=== PATIENT | male | born 1965 | race Caucasian/White ===

== ENCOUNTER 2016-12-27 21:48 | Emergency (ER) | payer OTHER ==
[~2016-12-27] VITALS: Ht 180.3 cm; Wt 90.3 kg
[2016-12-27] MEDS ORDERED: ONDANSETRON 4MG/2ML VIAL (J2405) As Ordered ONE (23:52)
[2016-12-27] MEDS ORDERED: PANTOPRAZOLE 40MG INJ (PROTONIX) (C9113) As Ordered ONE (23:52)
[2016-12-28 00:15] LABS: BASO # 0.1 K/mm3 (0.0-0.2); BASO % 0.5 % (0.0-1.0); EOS # 0.1 K/mm3 (0.0-0.50); EOS % 0.7 % (0.0-3.0); LARGE UNSTAINED CELL # 0.1 K/mm3 (0.0-0.4); LYMPH # 1.7 K/mm3 (1.5-4.5); LYMPH % 11.3 % (24.0-44.0); MEAN CORPUSCULAR HEMOGLOBIN 28.6 pg (27.0-33.0); MEAN CORPUSCULAR HGB CONC 33.4 g/dl (32.0-36.5); MEAN CORPUSCULAR VOLUME 85.8 fl (80.0-96.0); MONO % 7.2 % (0.0-5.0); NEUTROPHILS # 10.8 K/mm3 (1.8-7.7); NEUTROPHILS % 79.2 % (36.0-66.0); PLATELET COUNT, AUTOMATED 247 k/mm3 (150-450); RED CELL DISTRIBUTION WIDTH 13.5 % (11.5-14.5); WHITE BLOOD COUNT 13.6 K/mm3 (4.0-10.0)
[2016-12-28 00:34] LABS: ALBUMIN 4.2 GM/DL (3.2-5.2); ALBUMIN/GLOBULIN RATIO 0.98 (1.00-1.93); ALKALINE PHOSPHATASE 98 U/L (45-117); ALT/SGPT 37 U/L (12-78); AMYLASE 55 U/L (25-115); ANION GAP 8 MEQ/L (8-16); AST/SGOT 19 U/L (15-37); BILIRUBIN,DIRECT 0.2 MG/DL (0.0-0.2); BILIRUBIN,TOTAL 1.2 MG/DL (0.2-1.0); BLOOD UREA NITROGEN 27 MG/DL (7-18); CALCIUM LEVEL 9.3 MG/DL (8.5-10.1); CARBON DIOXIDE LEVEL 29 MEQ/L (21-32); CHLORIDE LEVEL 102 MEQ/L (98-107); CREATININE FOR GFR 1.27 MG/DL (0.70-1.30); GLOMERULAR FILTRATION RATE > 60.0 (>56); GLUCOSE, FASTING 155 MG/DL (70-105); POTASSIUM SERUM 4.1 MEQ/L (3.5-5.1); SODIUM LEVEL 139 MEQ/L (136-145); TOTAL PROTEIN 8.5 GM/DL (6.4-8.2)
[2016-12-28] MEDS ORDERED: METOCLOPRAMIDE INJ 10MG/2ML VIAL (J2765) As Ordered ONE (02:02)
[2016-12-28] MEDS ORDERED: ISOVUE-370 76% 100ML VIAL (Q9967) As Ordered ONE (03:10)
[2016-12-28] MEDS ORDERED: ONDANSETRON 4MG/2ML VIAL (J2405) As Ordered ONE (03:23)
[2016-12-28] MEDS ORDERED: GABA800T PO (03:40)
[2016-12-28] MEDS ORDERED: NICO14DI20 TD (03:40)
[2016-12-28] MEDS ORDERED: ASPI81TA7 PO (03:40)
[2016-12-28] MEDS ORDERED: VITA50003 PO (03:40)
[2016-12-28] MEDS ORDERED: GABA-283 PO (03:40)
[2016-12-28] MEDS ORDERED: ZOLO100T PO (03:40)
[2016-12-28] MEDS ORDERED: INSULANT SC (03:40)
[2016-12-28] MEDS ORDERED: INSUH10VL SC (03:40)
--- NOTE | 2016-12-28 04:50 | REPUSA ---
CLINICAL HISTORY: Abdominal pain. TECHNIQUE: Multiple axial, sagittal and coronal CT images were obtained through the abdomen and pelvi s after administration of intravenous contrast material. COMMENTS: The liver is of uniform attenuation without mass or defect. There is no intra or extrahepatic biliary ductal dilatation. The spleen is normal. The gallbladder is within normal limits. The pancreas is of normal contour and attenuation characteristics. There is no evidence of adrenal mass. Both kidneys demonstrate prompt and equal nephrograms. The kidneys are normal in size, shape and conf iguration. There is no evidence of renal or ureteral mass. No renal or ureteral calculi are identifie d. There is no hydroureter or hydronephrosis. No evidence for appendicitis. There is no bowel wall thickening. No evidence for small or large rob l obstruction. There is no evidence of abdominal ascites or lymphadenopathy. There is no evidence of intrinsic or extrinsic bladder mass. There is no pelvic ascites or lymphadeno marcelina. Prostatic calcifictions are noted. Images of the lung bases show no evidence of pleural or parenchymal mass. There are no pleural effusi ons. The bony structures are free of lytic or blastic lesions. IMPRESSION: No evidence of acute abdominal or pelvic pathology. Thank you for your kind referral of this patient.
--- NOTE | 2016-12-28 06:16 | EDDOCDS ---
Nurse's Notes [facility] Name: Luis M Quinn Age: 51 yrs Sex: Male : 1965 Arrival Date: 12/27/2016 Time: 21:48 Bed 9 Private MD: [facility] [place] Diagnosis: Noninfective gastroenteritis and colitis, unspecified Presentation: 12/27 21:56 Presenting complaint: Patient states: nausea/vomiting for 3 days. Worse after starting rs3 on Trazodone, Zoloft since last month. reports of anxiety, not sleeping for many days. Adult Sepsis Screening: The patient does not have new or worsening altered mentation. Patient's respiratory rate is less than 22. Systolic blood pressure is greater than 100. Patient has a qSOFA score of 0- Negative Sepsis Screen. Suicide/Homicide risk assessment- the patient denies having any suicidal and/or homicidal ideations and does not present with any other emotional, behavioral or mental health complaints. Status: Patient is not a director of food and beverage services or dependent. Transition of care: patient was not received from another setting of care. 21:56 Acuity: VIN Level 3 rs3 21:56 Method Of Arrival: Ambulance rs3 Triage Assessment: 22:04 General: Appears in no apparent distress. Pain: Location: generalized. HIV screening NA rs3 for this visit Offered previously. Historical: - Allergies: no known allergies; - Home Meds: 1. aspirin 81 mg Oral tab 1 tab once daily 2. gabapentin 400 mg Oral cap 1 cap 3 at bedtime 3. Vitamin D Oral 50,000 unit weekly 4. Novolog 100 unit/mL Sub-Q soln three times a day 5. Lantus 100 unit/mL Sub-Q soln 50 unit 6. Zoloft 100 mg Oral tab once daily 7. trazodone 50 mg Oral tab (Last dose: 12/26/2016) 8. Tylenol 325 mg Oral tab every 4-6 hours 9. oxycodone 5 mg Oral cap 1 cap every 6 hours - PMHx: Diabetes - IDDM: controlled; Anxiety; - PSHx: left great toe opartial amp; - Social history: Smoking status: Patient uses tobacco products, light tobacco smoker. No barriers to communication noted, The patient speaks fluent [place]. - Family history: Not pertinent. - : The pt / caregiver states he / she is not on anticoagulants. Home medication list is obtained from the patient. - Exposure Risk Screening:: None identified. Screenin/12 00:02 Screening information is obtained from the patient. Fall risk: No risks identified. mcp Assistance ADL's: requires no assistance with activities of daily living. Abuse/DV Screen: The patient / caregiver reports he/she is: not in a situation that causes fear, pain or injury. Nutritional screening: No deficits noted. Advance Directives: Currently, there is no health care proxy. There is no active DNR order. home support is adequate. Assessment: 00:02 General: Appears ill, Behavior is cooperative. Pain: Denies pain. Neurological: No mcp deficits noted. Respiratory: Airway is patent Respiratory effort is even, unlabored. GI: Abdomen is non- distended Bowel sounds present X 4 quads. Abd is soft X 4 quads Reports nausea, vomiting. Derm: Skin is pink, warm & dry. 00:35 General: Appears ill, Behavior is appropriate for age, cooperative, Patient laying on [facility] stretcher, appears comfortable. NO voiced complaints at this time. . Neurological: Level of Consciousness is awake, alert, obeys commands, Oriented to person, place, time, Speech is normal, Facial symmetry appears normal, Facial symmetry: tongue is midline. Respiratory: Airway is patent Respiratory effort is even, unlabored, Respiratory pattern is regular, symmetrical. 01:30 General: Appears in no apparent distress, Behavior is appropriate for age, cooperative. jmb Neurological: Level of Consciousness is awake, alert, obeys commands, Oriented to person, place, time. Respiratory: Airway is patent Respiratory effort is even, unlabored, Respiratory pattern is regular, symmetrical. 02:47 General: Appears in no apparent distress, Behavior is appropriate for age, cooperative, jmb Patient noted to have dark red areas to posterior lower back. Informed Pankaj Orozco. Patient reports that it is known that when he runs out of hot water since he is always cold that he has a blow dryer that blows on him to keep him warm. . Neurological: Level of Consciousness is awake, alert, obeys commands, Oriented to person, place, time. Respiratory: Airway is patent Respiratory effort is even, unlabored, Respiratory pattern is regular, symmetrical. 02:56 General: Report given to Nadine Stanley RN. b 03:26 General: pt back from CT dry heaves at this time, received orders from MD for nausea tm5 meds. 05:42 Reassessment: Patient appears in no apparent distress at this time. Patient states tm5 feeling better. Patient states symptoms have improved. 06:13 Reassessment: Patient appears in no apparent distress at this time. Patient denies pain tm5 at this time. Patient states feeling better. Patient states symptoms have improved. Vital Signs: 12/27 21:51 BP 156 / 94; Pulse 103; Resp 20; Temp 98.3(O); Pulse Ox 100% on R/A; Weight 90.26 kg; sew Height 5 ft. 11 in. (180.34 cm); Pain 3/10; 12/28 00:32 BP 141 / 83 Supine; Pulse 103; Resp 20; Pulse Ox 99% on R/A; jmb 00:32 BP 130 / 82 Sitting; Pulse 104; Resp 20; Pulse Ox 98% on R/A; jmb 00:32 BP 100 / 75; Pulse 115; Resp 20; Pulse Ox 97% on R/A; jmb 02:45 BP 155 / 85 Supine; Pulse 110; Resp 18; Pulse Ox 98% on R/A; jmb 02:45 BP 140 / 83 Sitting; Pulse 114; Resp 20; Pulse Ox 100% on R/A; jmb 02:45 BP 116 / 64 Standing; Pulse 114; Resp 20; Pulse Ox 98% on R/A; jmb 05:42 BP 118 / 72; Pulse 78; Resp 20; Temp 97.9(O); Pulse Ox 94% on R/A; Pain 3/10; tm5 06:13 BP 122 / 56; Pulse 80; Resp 18; Temp 98.6(O); Pulse Ox 96% on R/A; Pain 0/10; tm5 12/27 21:51 Body Mass Index 27.75 (90.26 kg, 180.34 cm) sew Vitals: 12/27 21:51 Log In Time: December 27, 2016 at 21:50. RN notified that patient meets Red Flag sew criteria. ED Course: 21:50 Patient visited by Toya Lanza. sew 21:50 Patient moved to Waiting sew 21:51 [facility] [place] is Private Physician. sew 21:53 Patient visited by Toya Lanza. sew 21:54 Patient moved to Pre RCE sew 21:59 Triage Initiated rs3 22:27 Patient moved to Triage 3 kmg1 23:16 Pk Collins RPA-C is PHCP. ck7 23:16 Kiet Barreto DO is Attending Physician. ck7 23:16 Patient visited by Pk Collins RPA-C. ck7 23:48 Patient moved to I1 / M1 tm5 23:49 Patient moved to I5 / M5 kmg1 02 00:01 Amylase Sent. jmb 00:01 Basic Metabolic Profile Sent. jmb 00:01 CBC with Diff Sent. jmb 00:01 Lipase Sent. jmb 00:01 Liver Profile Sent. jmb 00:01 Urinalysis Sent. jmb 00:01 Urine Culture Sent. jmb 00:01 Inserted saline lock: 20 gauge in left antecubital area and blood collected. The mcp patient tolerated the procedure well. Labs drawn. (by ED staff). Sent per order to lab. Urine collected. Clean catch specimen. Urine specimen sent to lab. 00:02 The patient / caregiver is instructed regarding the plan of care and ED course. Placed mcp in gown. Bed in low position. Call light in reach. 00:03 Patient visited by Allison James RN. [facility] 00:33 [facility] Payment Agreement was scanned into [employer] and attached to record. hs2 00:35 Patient visited by Aj Willett RN. jmb 01:11 Patient visited by Pk Collins RPA-C. ck7 01:41 Patient visited by Pk Collins RPA-C. ck7 02:15 Patient visited by Pk Collins RPA-C. ck7 02:48 Patient visited by Aj Willett RN. jmb 02:54 Shantel Jackson RN is Primary Nurse. jlm 02:54 Patient moved to 9 jlm 02:57 Primary Nurse role handed off by Shantel Jackson RN jmb 03:13 Patient visited by Nadine Stanley,CHANDLER. tm5 03:[address] tm5 03:[address] Patient moved back from [address]. tm5 04:13 Patient visited by Nadine Stanley,CHANDLER. tm5 04:55 CT ABD & PELVIS: IV Contrast Only Returned. EDMS 05:42 Patient visited by Nadine Stanley RN. tm5 06:13 Discontinued lock intact, bleeding controlled, pressure dressing applied, No tm5 redness/swelling at site. No procedures done that require assistance. Administered Medications: 00:00 Drug: Ondansetron 4 mg [ondansetron HCl 2 mg/mL intravenous solution (2 mL)] Route: jmb IVP; Site: left antecubital; 03:01 Follow up: Response: Nausea is unchanged jmb 00:00 Drug: pantoprazole 40 mg [pantoprazole 40 mg intravenous solution] Route: IV; Rate: jmb bolus; Site: left antecubital; 03:01 Follow up: Response: No Adverse Reaction jmb 00:01 Drug: NS 0.9% 1000 ml [sodium chloride 0.9 % intravenous solution] Route: IV; Rate: jmb bolus; Site: left antecubital; 03:02 Follow up: IV Status: Completed infusion jmb 00:54 Drug: NS 0.9% 1000 ml [sodium chloride 0.9 % intravenous solution] Route: IV; Rate: jmb bolus; Site: left antecubital; 03:01 Follow up: IV Status: Completed infusion jmb 02:05 Drug: Metoclopramide 10 mg [metoclopramide 5 mg/mL injection solution] Route: IV; Rate: jmb 40 mg/hr; Infused Over: 15 mins; Site: left antecubital; 03:01 Follow up: Response: Nausea is decreased b 03:26 Drug: Ondansetron 4 mg [ondansetron HCl 2 mg/mL intravenous solution (2 mL)] Route: tm5 IVP; Site: left antecubital; 04:14 Follow up: Response: Nausea is decreased; No Adverse Reaction tm5 Point of Care Testing: Blood Glucose: 12/27 21:59 Blood Glucose: 159 mg/dL; kmg1 Ranges: Order Results: Lab Order: Fingerstick Blood Sugar; SPEC'M 12/27/16 21:57 Test: BEDSIDE GLUCOSE; Value: 156; Range: 70-105; Abnormal: Above high normal; Units: MG/DL; Status: F Lab Order: Amylase; SPEC'M 12/27/16 23:57 Test: AMYLASE; Value: 55; Range: 25-115; Units: U/L; Status: F Lab Order: Basic Metabolic Profile; SPEC'M 12/27/16 23:57 Test: GLUCOSE, FASTING; Value: 155; Range: 70-105; Abnormal: Above high normal; Units: MG/DL; Status: F Test: BLOOD UREA NITROGEN; Value: 27; Range: 7-18; Abnormal: Above high normal; Units: MG/DL; Status: F Test: CREATININE FOR GFR; Value: 1.27; Range: 0.70-1.30; Units: MG/DL; Status: F Test: GLOMERULAR FILTRATION RATE; Value: > 60.0; Range: >56; Status: F Test: SODIUM LEVEL; Value: 139; Range: 136-145; Units: MEQ/L; Status: F Test: POTASSIUM SERUM; Value: 4.1; Range: 3.5-5.1; Units: MEQ/L; Status: F Test: CHLORIDE LEVEL; Value: 102; Range: 98-107; Units: MEQ/L; Status: F Test: CARBON DIOXIDE LEVEL; Value: 29; Range: 21-32; Units: MEQ/L; Status: F Test: ANION GAP; Value: 8; Range: 8-16; Units: MEQ/L; Status: F Test: CALCIUM LEVEL; Value: 9.3; Range: 8.5-10.1; Units: MG/DL; Status: F Test Note: ; Units are mL/min/1.73 m2 Chronic Kidney Disease Staging per NKF: Stage I & II GFR >=60 Normal to Mildly Decreased Stage III GFR 30-59 Moderately Decreased Stage IV GFR 15-29 Severely Decreased Stage V GFR <15 Very Little GFR Left ESRD GFR <15 on UX INTERACTION DESIGNER Lab Order: CBC with Diff; SPEC'M 12/27/16 23:57 Test: WHITE BLOOD COUNT; Value: 13.6; Range: 4.0-10.0; Abnormal: Above high normal; Units: K/mm3; Status: F Test: RED BLOOD COUNT; Value: 6.15; Range: 4.30-6.10; Abnormal: Above high normal; Units: M/mm3; Status: F Test: HEMOGLOBIN; Value: 17.6; Range: 14.0-18.0; Units: g/dl; Status: F Test: HEMATOCRIT; Value: 52.8; Range: 42.0-52.0; Abnormal: Above high normal; Units: %; Status: F Test: MEAN CORPUSCULAR VOLUME; Value: 85.8; Range: 80.0-96.0; Units: fl; Status: F Test: MEAN CORPUSCULAR HEMOGLOBIN; Value: 28.6; Range: 27.0-33.0; Units: pg; Status: F Test: MEAN CORPUSCULAR HGB CONC; Value: 33.4; Range: 32.0-36.5; Units: g/dl; Status: F Test: RED CELL DISTRIBUTION WIDTH; Value: 13.5; Range: 11.5-14.5; Units: %; Status: F Test: PLATELET COUNT, AUTOMATED; Value: 247; Range: 150-450; Units: k/mm3; Status: F Test: NEUTROPHILS %; Value: 79.2; Range: 36.0-66.0; Abnormal: Above high normal; Units: %; Status: F Test: LYMPH %; Value: 11.3; Range: 24.0-44.0; Abnormal: Below low normal; Units: %; Status: F Test: MONO %; Value: 7.2; Range: 0.0-5.0; Abnormal: Above high normal; Units: %; Status: F Test: EOS %; Value: 0.7; Range: 0.0-3.0; Units: %; Status: F Test: BASO %; Value: 0.5; Range: 0.0-1.0; Units: %; Status: F Test: LARGE UNSTAINED CELL %; Value: 1.0; Range: 0.0-4.0; Units: %; Status: F Test: NEUTROPHILS #; Value: 10.8; Range: 1.8-7.7; Abnormal: Above high normal; Units: K/mm3; Status: F Test: LYMPH #; Value: 1.7; Range: 1.5-4.5; Units: K/mm3; Status: F Test: MONO #; Value: 1.0; Range: 0.0-0.8; Abnormal: Above high normal; Units: K/mm3; Status: F Test: EOS #; Value: 0.1; Range: 0.0-0.50; Units: K/mm3; Status: F Test: BASO #; Value: 0.1; Range: 0.0-0.2; Units: K/mm3; Status: F Test: LARGE UNSTAINED CELL #; Value: 0.1; Range: 0.0-0.4; Units: K/mm3; Status: F Lab Order: Lipase; [facility] 12/27/16 23:57 Test: LIPASE; Value: 58; Range: 73-393; Abnormal: Below low normal; Units: U/L; Status: F Lab Order: Liver Profile; [facility] 12/27/16 23:57 Test: AST/SGOT; Value: 19; Range: 15-37; Units: U/L; Status: F Test: ALT/SGPT; Value: 37; Range: 12-78; Units: U/L; Status: F Test: ALKALINE PHOSPHATASE; Value: 98; Range: 45-117; Units: U/L; Status: F Test: BILIRUBIN,TOTAL; Value: 1.2; Range: 0.2-1.0; Abnormal: Above high normal; Units: MG/DL; Status: F Test: BILIRUBIN,DIRECT; Value: 0.2; Range: 0.0-0.2; Units: MG/DL; Status: F Test: TOTAL PROTEIN; Value: 8.5; Range: 6.4-8.2; Abnormal: Above high normal; Units: GM/DL; Status: F Test: ALBUMIN; Value: 4.2; Range: 3.2-5.2; Units: GM/DL; Status: F Test: ALBUMIN/GLOBULIN RATIO; Value: 0.98; Range: 1.00-1.93; Abnormal: Below low normal; Status: F Lab Order: Urinalysis; [facility] 12/27/16 23:57 Test: APPEARANCE, URINE; Value: HAZY; Range: CLEAR; Status: F Test: COLOR, URINE; Value: YELLOW; Range: YELLOW; Status: F Test: PH,URINE; Value: 5.0; Range: 5.0-9.0; Units: UNITS; Status: F Test: SPECIFIC GRAVITY URINE AUTO; Value: 1.031; Range: 1.002-1.035; Status: F Test: PROTEIN, URINE AUTO; Value: 1+; Range: NEGATIVE; Abnormal: Above high normal; Units: mg/dL; Status: F Test: GLUCOSE, URINE (UA) AUTO; Value: NEGATIVE; Range: NEGATIVE; Units: mg/dL; Status: F Test: KETONE, URINE AUTO; Value: 2+; Range: NEGATIVE; Abnormal: Above high normal; Units: mg/dL; Status: F Test: UROBILINOGEN, URINE AUTO; Value: 2.0; Range: 0.0-2.0; Abnormal: Above high normal; Units: mg/dL; Status: F Test: BILIRUBIN, URINE AUTO; Value: NEGATIVE; Range: NEGATIVE; Status: F Test: NITRITE, URINE AUTO; Value: NEGATIVE; Range: NEGATIVE; Status: F Test: LEUKOCYTE ESTERASE, URINE AUTO; Value: NEGATIVE; Range: NEGATIVE; Status: F Test: BLOOD, URINE BLOOD; Value: NEGATIVE; Range: NEGATIVE; Status: F Test: WBC, URINE AUTO; Value: 1; Range: 0-3; Units: /HPF; Status: F Test: RBC, URINE AUTO; Value: 1; Range: 0-3; Units: /HPF; Status: F Test: BACTERIA, URINE AUTO; Value: NEGATIVE; Range: NEGATIVE; Status: F Test: SQUAMOUS EPITHELIAL CELL UR AU; Value: 0; Range: 0-6; Units: /HPF; Status: F Test: MUCUS, URINE; Value: SMALL; Range: NEGATIVE; Status: F Test: SPERM, URINE AUTO; Value: SMALL; Range: NONE; Abnormal: Above high normal; Status: F Test: HYALINE CAST, URINE AUTO; Value: 0; Range: 0-1; Units: /LPF; Status: F Radiology Order: CT ABD & PELVIS: IV Contrast Only Test: CT ABD & PELVIS: IV Contrast Only REASON FOR EXAMINATION: Abdomen Pain; ; CLINICAL HISTORY: Abdominal pain.; TECHNIQUE: Multiple axial, sagittal and coronal CT images were obtained through the abdomen and pelvi; s after administration of intravenous contrast material.; COMMENTS:; The liver is of uniform attenuation without mass or defect. There is no intra or extrahepatic biliary; ductal dilatation. The spleen is normal. The gallbladder is within normal limits. The pancreas is of; normal contour and attenuation characteristics. There is no evidence of adrenal mass.; Both kidneys demonstrate prompt and equal nephrograms. The kidneys are normal in size, shape and conf; iguration. There is no evidence of renal or ureteral mass. No renal or ureteral calculi are identifie; d. There is no hydroureter or hydronephrosis.; No evidence for appendicitis. There is no bowel wall thickening. No evidence for small or large rob; l obstruction. There is no evidence of abdominal ascites or lymphadenopathy.; There is no evidence of intrinsic or extrinsic bladder mass. There is no pelvic ascites or lymphadeno; marcelina. Prostatic calcifictions are noted.; Images of the lung bases show no evidence of pleural or parenchymal mass. There are no pleural effusi; ons.; The bony structures are free of lytic or blastic lesions.; IMPRESSION:; No evidence of acute abdominal or pelvic pathology.; Thank you for your kind referral of this patient.; ; Outcome: 12/28 05:56 Discharge ordered by Provider. [id number] 06:13 Discharge Assessment: Patient awake, alert and oriented x 3. No cognitive and/or tm5 functional deficits noted. Patient verbalized understanding of disposition instructions. patient administered narcotics - no. The following High Risk Discharge criteria are identified: None. Discharged to home ambulatory. Condition: good Condition: stable Condition: improved. Discharge instructions given to patient, Instructed on discharge instructions, follow up and referral plans. medication usage, diet, PO fluids intake for Hydration. CT Study completed. Property :Personal belongings accompany Pt. 06:15 Patient left the ED. tm5 Signatures: Dispatcher [employer] EDMS Jillian Griffin, RN RN kmg1 Allison James RN RN mcp Maynard, Matthew, DO DO [id number] Leora Akins RN RN rs3 Pk Collins, RPA-C [id number] Toya Lanza JoshuaRN RN Kalani Nolan, Manufacturing Process Technician Unit jlSarah Alexandra, Reg Reg hs2 Nadine StanleyRN RN tm5 MTDD
--- NOTE | 2016-12-28 06:16 | EDDOCDS ---
Physician Documentation [facility] Name: Luis M Quinn Age: 51 yrs Sex: Male : 1965 Arrival Date: 12/27/2016 Time: 21:48 Bed 9 Private MD: [facility] Disposition: 12/28/16 05:56 Discharged to Home/Self Care. Impression: Noninfective gastroenteritis and colitis, unspecified. - Condition is Stable. - Discharge Instructions: Viral Gastroenteritis, Viral Gastroenteritis, [id number]. - Prescriptions for Reglan 10 mg Oral Tablet - take 1 tablet by ORAL route every 6 hours take 30 minutes before meals and at bedtime; 20 tablet. Zofran 4 mg Oral Tablet - take 1 tablet by ORAL route 4 times per day As needed; 10 tablet. - Medication Reconciliation, Local Pharmacy Hours form. - Follow up: Private Physician; When: As needed; Reason: Continuance of care. - Problem is an acute exacerbation. - Symptoms have improved. Historical: - Allergies: no known allergies; - Home Meds: 1. aspirin 81 mg Oral tab 1 tab once daily 2. gabapentin 400 mg Oral cap 1 cap 3 at bedtime 3. Vitamin D Oral 50,000 unit weekly 4. Novolog 100 unit/mL Sub-Q soln three times a day 5. Lantus 100 unit/mL Sub-Q soln 50 unit 6. Zoloft 100 mg Oral tab once daily 7. trazodone 50 mg Oral tab (Last dose: 12/26/2016) 8. Tylenol 325 mg Oral tab every 4-6 hours 9. oxycodone 5 mg Oral cap 1 cap every 6 hours - PMHx: Diabetes - IDDM: controlled; Anxiety; - PSHx: left great toe opartial amp; - Social history: Smoking status: Patient uses tobacco products, light tobacco smoker. No barriers to communication noted, The patient speaks fluent Estonian. - Family history: Not pertinent. - : The pt / caregiver states he / she is not on anticoagulants. Home medication list is obtained from the patient. - Exposure Risk Screening:: None identified. Vital Signs: 12/27 21:51 BP 156 / 94; Pulse 103; Resp 20; Temp 98.3(O); Pulse Ox 100% on R/A; Weight 90.26 kg / sew 198.99 lbs; Height 5 ft. 11 in. (180.34 cm); Pain 3/10; 12/28 00:32 BP 141 / 83 Supine; Pulse 103; Resp 20; Pulse Ox 99% on R/A; jmb 00:32 BP 130 / 82 Sitting; Pulse 104; Resp 20; Pulse Ox 98% on R/A; jmb 00:32 BP 100 / 75; Pulse 115; Resp 20; Pulse Ox 97% on R/A; jmb 02:45 BP 155 / 85 Supine; Pulse 110; Resp 18; Pulse Ox 98% on R/A; jmb 02:45 BP 140 / 83 Sitting; Pulse 114; Resp 20; Pulse Ox 100% on R/A; jmb 02:45 BP 116 / 64 Standing; Pulse 114; Resp 20; Pulse Ox 98% on R/A; jmb 05:42 BP 118 / 72; Pulse 78; Resp 20; Temp 97.9(O); Pulse Ox 94% on R/A; Pain 3/10; tm5 06:13 BP 122 / 56; Pulse 80; Resp 18; Temp 98.6(O); Pulse Ox 96% on R/A; Pain 0/10; tm5 12/27 21:51 Body Mass Index 27.75 (90.26 kg, 180.34 cm) sew MDM: 12/27 23:42 Undress patient appropriately for examination ordered. ck7 23:42 IV Saline Lock ordered. ck7 23:42 NS 0.9% 1000 ml IV at bolus once ordered. ck7 23:42 Ondansetron 4 mg IVP once ordered. ck7 23:42 pantoprazole 40 mg IV at bolus once ordered. ck7 23:43 Financial registration complete. hs2 23:43 Amylase Ordered. EDMS 23:43 Basic Metabolic Profile Ordered. EDMS 23:43 CBC with Diff Ordered. EDMS 23:43 Lipase Ordered. EDMS 23:43 Liver Profile Ordered. EDMS 23:43 Urinalysis Ordered. EDMS 23:43 Urine Culture Ordered. EDMS 23:44 NOTHING BY MOUTH+DIET ordered. EDMS 23:50 Orthostatic VS ordered. ck7 12/28 00:33 [facility] [place] was scanned into [employer] and attached to record. hs2 00:38 Fingerstick Blood Sugar Reviewed. ck7 00:38 Basic Metabolic Profile Reviewed. ck7 00:38 CBC with Diff Reviewed. ck7 00:38 Lipase Reviewed. ck7 00:38 Liver Profile Reviewed. ck7 00:38 Urinalysis Reviewed. ck7 00:38 Amylase Reviewed. ck7 00:49 NS 0.9% 1000 ml IV at bolus once ordered. ck7 01:41 Fluid Challenge ordered. ck7 01:59 Orthostatic VS ordered. ck7 01:59 Metoclopramide 10 mg IV at 40 mg/hr once over 15 mins ordered. ck7 02:00 Abdomen, Flat\E\Upright,PA Chest Ordered. EDMS 02:42 BED REQUEST+ADM ordered. EDMS 02:52 CT ABD & PELVIS: IV Contrast Only Ordered. EDMS 03:23 Ondansetron 4 mg IVP once ordered. mm11 Point of Care Testing: Blood Glucose: 12/27 21:59 Blood Glucose: 159 mg/dL; kmg1 Ranges: Administered Medications: 12/28 00:00 Drug: Ondansetron 4 mg [ondansetron HCl 2 mg/mL intravenous solution (2 mL)] Route: jmb IVP; Site: left antecubital; 03:01 Follow up: Response: Nausea is unchanged jmb 00:00 Drug: pantoprazole 40 mg [pantoprazole 40 mg intravenous solution] Route: IV; Rate: jmb bolus; Site: left antecubital; 03:01 Follow up: Response: No Adverse Reaction jmb 00:01 Drug: NS 0.9% 1000 ml [sodium chloride 0.9 % intravenous solution] Route: IV; Rate: jmb bolus; Site: left antecubital; 03:02 Follow up: IV Status: Completed infusion jmb 00:54 Drug: NS 0.9% 1000 ml [sodium chloride 0.9 % intravenous solution] Route: IV; Rate: jmb bolus; Site: left antecubital; 03:01 Follow up: IV Status: Completed infusion jmb 02:05 Drug: Metoclopramide 10 mg [metoclopramide 5 mg/mL injection solution] Route: IV; Rate: jmb 40 mg/hr; Infused Over: 15 mins; Site: left antecubital; 03:01 Follow up: Response: Nausea is decreased jmb 03:26 Drug: Ondansetron 4 mg [ondansetron HCl 2 mg/mL intravenous solution (2 mL)] Route: tm5 IVP; Site: left antecubital; 04:14 Follow up: Response: Nausea is decreased; No Adverse Reaction tm5 Signatures: Dispatcher [employer] Kiet Alvarado, DO mm11 Leora Akins RN RN rs3 Pk Collins, RPA-C RPA-Cck7 Sarah Simpson, Reg Reg hs2 Nadine Stanley RN RN tm5 Aj Willett RNb The chart was reviewed and I authenticate all verbal orders and agree with the evaluation and treatment provided.Attachments: 00:33 [facility] Payment Agreement hs2 MTDD
--- NOTE | 2016-12-28 14:01 | REP ---
ACUTE ABDOMINAL SERIES: 12/28/2016. Clinical history: Abdominal pain. Comparison: Portable chest 12/08/2007, abdominal series 09/29/2007. Findings: PA chest: Lung horner well inflated and clear. Heart, mediastinal and hilar contours normal. Airway intact . Bony thorax unremarkable. No free air under the diaphragm. Flat upright abdomen: The gas pattern is nonspecific. There is stool and gas scattered in the colon without dilatation and gas in small bowel loops without dilatation or any air fluid levels of significance. There are no masses, abnormal calcifications or significant acute bony findings. There is some minor degenerative changes hips and lower lumbar spine. Impression: 1. Nonspecific gas pattern without obstruction, mass or free air. 2. PA chest negative. Signed by Randal Weller MD 12/28/2016 07:25 P
--- NOTE | 2016-12-30 07:15 | EDDOCDS ---
Physician Documentation [facility] Name: Luis M Quinn Age: 51 yrs Sex: Male : 1965 Arrival Date: 12/27/2016 Time: 21:48 Bed 9 Private MD: [facility] Disposition: 12/28/16 05:56 Discharged to Home/Self Care. Impression: Noninfective gastroenteritis and colitis, unspecified. - Condition is Stable. - Discharge Instructions: Viral Gastroenteritis, Viral Gastroenteritis, [id number]. - Prescriptions for Reglan 10 mg Oral Tablet - take 1 tablet by ORAL route every 6 hours take 30 minutes before meals and at bedtime; 20 tablet. Zofran 4 mg Oral Tablet - take 1 tablet by ORAL route 4 times per day As needed; 10 tablet. - Medication Reconciliation, Local Pharmacy Hours form. - Follow up: Private Physician; When: As needed; Reason: Continuance of care. - Problem is an acute exacerbation. - Symptoms have improved. Historical: - Allergies: no known allergies; - Home Meds: 1. aspirin 81 mg Oral tab 1 tab once daily 2. gabapentin 400 mg Oral cap 1 cap 3 at bedtime 3. Vitamin D Oral 50,000 unit weekly 4. Novolog 100 unit/mL Sub-Q soln three times a day 5. Lantus 100 unit/mL Sub-Q soln 50 unit 6. Zoloft 100 mg Oral tab once daily 7. trazodone 50 mg Oral tab (Last dose: 12/26/2016) 8. Tylenol 325 mg Oral tab every 4-6 hours 9. oxycodone 5 mg Oral cap 1 cap every 6 hours - PMHx: Diabetes - IDDM: controlled; Anxiety; - PSHx: left great toe opartial amp; - Social history: Smoking status: Patient uses tobacco products, light tobacco smoker. No barriers to communication noted, The patient speaks fluent Kiswahili. - Family history: Not pertinent. - : The pt / caregiver states he / she is not on anticoagulants. Home medication list is obtained from the patient. - Exposure Risk Screening:: None identified. Vital Signs: 12/27 21:51 BP 156 / 94; Pulse 103; Resp 20; Temp 98.3(O); Pulse Ox 100% on R/A; Weight 90.26 kg / sew 198.99 lbs; Height 5 ft. 11 in. (180.34 cm); Pain 3/10; 12/28 00:32 BP 141 / 83 Supine; Pulse 103; Resp 20; Pulse Ox 99% on R/A; jmb 00:32 BP 130 / 82 Sitting; Pulse 104; Resp 20; Pulse Ox 98% on R/A; jmb 00:32 BP 100 / 75; Pulse 115; Resp 20; Pulse Ox 97% on R/A; jmb 02:45 BP 155 / 85 Supine; Pulse 110; Resp 18; Pulse Ox 98% on R/A; jmb 02:45 BP 140 / 83 Sitting; Pulse 114; Resp 20; Pulse Ox 100% on R/A; jmb 02:45 BP 116 / 64 Standing; Pulse 114; Resp 20; Pulse Ox 98% on R/A; jmb 05:42 BP 118 / 72; Pulse 78; Resp 20; Temp 97.9(O); Pulse Ox 94% on R/A; Pain 3/10; tm5 06:13 BP 122 / 56; Pulse 80; Resp 18; Temp 98.6(O); Pulse Ox 96% on R/A; Pain 0/10; tm5 12/27 21:51 Body Mass Index 27.75 (90.26 kg, 180.34 cm) sew MDM: 12/27 23:42 Undress patient appropriately for examination ordered. ck7 23:42 IV Saline Lock ordered. ck7 23:42 NS 0.9% 1000 ml IV at bolus once ordered. ck7 23:42 Ondansetron 4 mg IVP once ordered. ck7 23:42 pantoprazole 40 mg IV at bolus once ordered. ck7 23:43 Financial registration complete. hs2 23:43 Amylase Ordered. EDMS 23:43 Basic Metabolic Profile Ordered. EDMS 23:43 CBC with Diff Ordered. EDMS 23:43 Lipase Ordered. EDMS 23:43 Liver Profile Ordered. EDMS 23:43 Urinalysis Ordered. EDMS 23:43 Urine Culture Ordered. EDMS 23:44 NOTHING BY MOUTH+DIET ordered. EDMS 23:50 Orthostatic VS ordered. ck7 12/28 00:33 [facility] [place] Agreement was scanned into [employer] and attached to record. hs2 00:38 Fingerstick Blood Sugar Reviewed. ck7 00:38 Basic Metabolic Profile Reviewed. ck7 00:38 CBC with Diff Reviewed. ck7 00:38 Lipase Reviewed. ck7 00:38 Liver Profile Reviewed. ck7 00:38 Urinalysis Reviewed. ck7 00:38 Amylase Reviewed. ck7 00:49 NS 0.9% 1000 ml IV at bolus once ordered. ck7 01:41 Fluid Challenge ordered. ck7 01:59 Orthostatic VS ordered. ck7 01:59 Metoclopramide 10 mg IV at 40 mg/hr once over 15 mins ordered. ck7 02:00 Abdomen, Flat\E\Upright,PA Chest Ordered. EDMS 02:42 BED REQUEST+ADM ordered. EDMS 02:52 CT ABD & PELVIS: IV Contrast Only Ordered. EDMS 03:23 Ondansetron 4 mg IVP once ordered. mm11 20:08 Abdomen, Flat\E\Upright,PA Chest Reviewed. ck7 20:08 CT ABD & PELVIS: IV Contrast Only Reviewed. ck7 20:50 T-Sheet-- Draft Copy was scanned into [employer] and attached to record. klr Point of Care Testing: Blood Glucose: 12/27 21:59 Blood Glucose: 159 mg/dL; kmg1 Ranges: Administered Medications: 12/28 00:00 Drug: Ondansetron 4 mg [ondansetron HCl 2 mg/mL intravenous solution (2 mL)] Route: jmb IVP; Site: left antecubital; 03:01 Follow up: Response: Nausea is unchanged jmb 00:00 Drug: pantoprazole 40 mg [pantoprazole 40 mg intravenous solution] Route: IV; Rate: jmb bolus; Site: left antecubital; 03:01 Follow up: Response: No Adverse Reaction jmb 00:01 Drug: NS 0.9% 1000 ml [sodium chloride 0.9 % intravenous solution] Route: IV; Rate: jmb bolus; Site: left antecubital; 03:02 Follow up: IV Status: Completed infusion jmb 00:54 Drug: NS 0.9% 1000 ml [sodium chloride 0.9 % intravenous solution] Route: IV; Rate: jmb bolus; Site: left antecubital; 03:01 Follow up: IV Status: Completed infusion jmb 02:05 Drug: Metoclopramide 10 mg [metoclopramide 5 mg/mL injection solution] Route: IV; Rate: jmb 40 mg/hr; Infused Over: 15 mins; Site: left antecubital; 03:01 Follow up: Response: Nausea is decreased jennifer 03:26 Drug: Ondansetron 4 mg [ondansetron HCl 2 mg/mL intravenous solution (2 mL)] Route: tm5 IVP; Site: left antecubital; 04:14 Follow up: Response: Nausea is decreased; No Adverse Reaction tm5 Signatures: Dispatcher [employer] EDKiet Méndez, DO mm11 Leora Akins RN RN rs3 Pk Collins, RPA-C RPA-Cck7 Sarah Simpson, Reg Reg hs2 Nae Mims Tonya, RN RN tm5 Aj Willett RNb The chart was reviewed and I authenticate all verbal orders and agree with the evaluation and treatment provided.Attachments: 00:33 [facility] Payment Agreement hs2 20:50 T-Sheet-- Draft Copy klr Chart Complete MTDD
--- NOTE | 2016-12-30 07:15 | EDDOCDS ---
Physician Documentation [facility] Name: Luis M Quinn Age: 51 yrs Sex: Male : 1965 Arrival Date: 12/27/2016 Time: 21:48 Bed 9 Private MD: [facility] Disposition: 12/28/16 05:56 Discharged to Home/Self Care. Impression: Noninfective gastroenteritis and colitis, unspecified. - Condition is Stable. - Discharge Instructions: Viral Gastroenteritis, Viral Gastroenteritis, [id number]. - Prescriptions for Reglan 10 mg Oral Tablet - take 1 tablet by ORAL route every 6 hours take 30 minutes before meals and at bedtime; 20 tablet. Zofran 4 mg Oral Tablet - take 1 tablet by ORAL route 4 times per day As needed; 10 tablet. - Medication Reconciliation, Local Pharmacy Hours form. - Follow up: Private Physician; When: As needed; Reason: Continuance of care. - Problem is an acute exacerbation. - Symptoms have improved. Historical: - Allergies: no known allergies; - Home Meds: 1. aspirin 81 mg Oral tab 1 tab once daily 2. gabapentin 400 mg Oral cap 1 cap 3 at bedtime 3. Vitamin D Oral 50,000 unit weekly 4. Novolog 100 unit/mL Sub-Q soln three times a day 5. Lantus 100 unit/mL Sub-Q soln 50 unit 6. Zoloft 100 mg Oral tab once daily 7. trazodone 50 mg Oral tab (Last dose: 12/26/2016) 8. Tylenol 325 mg Oral tab every 4-6 hours 9. oxycodone 5 mg Oral cap 1 cap every 6 hours - PMHx: Diabetes - IDDM: controlled; Anxiety; - PSHx: left great toe opartial amp; - Social history: Smoking status: Patient uses tobacco products, light tobacco smoker. No barriers to communication noted, The patient speaks fluent Croatian. - Family history: Not pertinent. - : The pt / caregiver states he / she is not on anticoagulants. Home medication list is obtained from the patient. - Exposure Risk Screening:: None identified. Vital Signs: 12/27 21:51 BP 156 / 94; Pulse 103; Resp 20; Temp 98.3(O); Pulse Ox 100% on R/A; Weight 90.26 kg / sew 198.99 lbs; Height 5 ft. 11 in. (180.34 cm); Pain 3/10; 12/28 00:32 BP 141 / 83 Supine; Pulse 103; Resp 20; Pulse Ox 99% on R/A; jmb 00:32 BP 130 / 82 Sitting; Pulse 104; Resp 20; Pulse Ox 98% on R/A; jmb 00:32 BP 100 / 75; Pulse 115; Resp 20; Pulse Ox 97% on R/A; jmb 02:45 BP 155 / 85 Supine; Pulse 110; Resp 18; Pulse Ox 98% on R/A; jmb 02:45 BP 140 / 83 Sitting; Pulse 114; Resp 20; Pulse Ox 100% on R/A; jmb 02:45 BP 116 / 64 Standing; Pulse 114; Resp 20; Pulse Ox 98% on R/A; jmb 05:42 BP 118 / 72; Pulse 78; Resp 20; Temp 97.9(O); Pulse Ox 94% on R/A; Pain 3/10; tm5 06:13 BP 122 / 56; Pulse 80; Resp 18; Temp 98.6(O); Pulse Ox 96% on R/A; Pain 0/10; tm5 12/27 21:51 Body Mass Index 27.75 (90.26 kg, 180.34 cm) sew MDM: 12/27 23:42 Undress patient appropriately for examination ordered. ck7 23:42 IV Saline Lock ordered. ck7 23:42 NS 0.9% 1000 ml IV at bolus once ordered. ck7 23:42 Ondansetron 4 mg IVP once ordered. ck7 23:42 pantoprazole 40 mg IV at bolus once ordered. ck7 23:43 Financial registration complete. hs2 23:43 Amylase Ordered. EDMS 23:43 Basic Metabolic Profile Ordered. EDMS 23:43 CBC with Diff Ordered. EDMS 23:43 Lipase Ordered. EDMS 23:43 Liver Profile Ordered. EDMS 23:43 Urinalysis Ordered. EDMS 23:43 Urine Culture Ordered. EDMS 23:44 NOTHING BY MOUTH+DIET ordered. EDMS 23:50 Orthostatic VS ordered. ck7 12/28 00:33 [facility] [place] Payment Agreement was scanned into [employer] and attached to record. hs2 00:38 Fingerstick Blood Sugar Reviewed. ck7 00:38 Basic Metabolic Profile Reviewed. ck7 00:38 CBC with Diff Reviewed. ck7 00:38 Lipase Reviewed. ck7 00:38 Liver Profile Reviewed. ck7 00:38 Urinalysis Reviewed. ck7 00:38 Amylase Reviewed. ck7 00:49 NS 0.9% 1000 ml IV at bolus once ordered. ck7 01:41 Fluid Challenge ordered. ck7 01:59 Orthostatic VS ordered. ck7 01:59 Metoclopramide 10 mg IV at 40 mg/hr once over 15 mins ordered. ck7 02:00 Abdomen, Flat\E\Upright,PA Chest Ordered. EDMS 02:42 BED REQUEST+ADM ordered. EDMS 02:52 CT ABD & PELVIS: IV Contrast Only Ordered. EDMS 03:23 Ondansetron 4 mg IVP once ordered. mm11 20:08 Abdomen, Flat\E\Upright,PA Chest Reviewed. ck7 20:08 CT ABD & PELVIS: IV Contrast Only Reviewed. ck7 20:50 T-Sheet-- Draft Copy was scanned into [employer] and attached to record. klr Point of Care Testing: Blood Glucose: 12/27 21:59 Blood Glucose: 159 mg/dL; kmg1 Ranges: Administered Medications: 12/28 00:00 Drug: Ondansetron 4 mg [ondansetron HCl 2 mg/mL intravenous solution (2 mL)] Route: jmb IVP; Site: left antecubital; 03:01 Follow up: Response: Nausea is unchanged jmb 00:00 Drug: pantoprazole 40 mg [pantoprazole 40 mg intravenous solution] Route: IV; Rate: jmb bolus; Site: left antecubital; 03:01 Follow up: Response: No Adverse Reaction jmb 00:01 Drug: NS 0.9% 1000 ml [sodium chloride 0.9 % intravenous solution] Route: IV; Rate: jmb bolus; Site: left antecubital; 03:02 Follow up: IV Status: Completed infusion jmb 00:54 Drug: NS 0.9% 1000 ml [sodium chloride 0.9 % intravenous solution] Route: IV; Rate: jmb bolus; Site: left antecubital; 03:01 Follow up: IV Status: Completed infusion jmb 02:05 Drug: Metoclopramide 10 mg [metoclopramide 5 mg/mL injection solution] Route: IV; Rate: jmb 40 mg/hr; Infused Over: 15 mins; Site: left antecubital; 03:01 Follow up: Response: Nausea is decreased jennifer 03:26 Drug: Ondansetron 4 mg [ondansetron HCl 2 mg/mL intravenous solution (2 mL)] Route: tm5 IVP; Site: left antecubital; 04:14 Follow up: Response: Nausea is decreased; No Adverse Reaction tm5 Signatures: Dispatcher [employer] EDKiet Méndez, DO mm11 Leora Akins RN RN rs3 Pk Collins, RPA-C RPA-Cck7 Sarah Simpson, Reg Reg hs2 aNe Mims Tonya, RN RN tm5 Aj Willett RNb The chart was reviewed and I authenticate all verbal orders and agree with the evaluation and treatment provided.Attachments: 00:33 [facility] Payment Agreement hs2 20:50 T-Sheet-- Draft Copy klr Chart Complete MTDD
--- NOTE | 2016-12-30 07:16 | EDDOCDS ---
Nurse's Notes [facility] Name: Luis M Quinn Age: 51 yrs Sex: Male : 1965 Arrival Date: 12/27/2016 Time: 21:48 Bed 9 Private MD: [facility] Diagnosis: Noninfective gastroenteritis and colitis, unspecified Presentation: 12/27 21:56 Presenting complaint: Patient states: nausea/vomiting for 3 days. Worse after starting rs3 on Trazodone, Zoloft since last month. reports of anxiety, not sleeping for many days. Adult Sepsis Screening: The patient does not have new or worsening altered mentation. Patient's respiratory rate is less than 22. Systolic blood pressure is greater than 100. Patient has a qSOFA score of 0- Negative Sepsis Screen. Suicide/Homicide risk assessment- the patient denies having any suicidal and/or homicidal ideations and does not present with any other emotional, behavioral or mental health complaints. Status: Patient is not a service person or dependent. Transition of care: patient was not received from another setting of care. 21:56 Acuity: VIN Level 3 rs3 21:56 Method Of Arrival: Ambulance rs3 Triage Assessment: 22:04 General: Appears in no apparent distress. Pain: Location: generalized. HIV screening NA rs3 for this visit Offered previously. Historical: - Allergies: no known allergies; - Home Meds: 1. aspirin 81 mg Oral tab 1 tab once daily 2. gabapentin 400 mg Oral cap 1 cap 3 at bedtime 3. Vitamin D Oral 50,000 unit weekly 4. Novolog 100 unit/mL Sub-Q soln three times a day 5. Lantus 100 unit/mL Sub-Q soln 50 unit 6. Zoloft 100 mg Oral tab once daily 7. trazodone 50 mg Oral tab (Last dose: 12/26/2016) 8. Tylenol 325 mg Oral tab every 4-6 hours 9. oxycodone 5 mg Oral cap 1 cap every 6 hours - PMHx: Diabetes - IDDM: controlled; Anxiety; - PSHx: left great toe opartial amp; - Social history: Smoking status: Patient uses tobacco products, light tobacco smoker. No barriers to communication noted, The patient speaks fluent Mauritian. - Family history: Not pertinent. - : The pt / caregiver states he / she is not on anticoagulants. Home medication list is obtained from the patient. - Exposure Risk Screening:: None identified. Screenin/12 00:02 Screening information is obtained from the patient. Fall risk: No risks identified. mcp Assistance ADL's: requires no assistance with activities of daily living. Abuse/DV Screen: The patient / caregiver reports he/she is: not in a situation that causes fear, pain or injury. Nutritional screening: No deficits noted. Advance Directives: Currently, there is no health care proxy. There is no active DNR order. home support is adequate. Assessment: 00:02 General: Appears ill, Behavior is cooperative. Pain: Denies pain. Neurological: No mcp deficits noted. Respiratory: Airway is patent Respiratory effort is even, unlabored. GI: Abdomen is non- distended Bowel sounds present X 4 quads. Abd is soft X 4 quads Reports nausea, vomiting. Derm: Skin is pink, warm & dry. 00:35 General: Appears ill, Behavior is appropriate for age, cooperative, [facility], appears comfortable. NO voiced complaints at this time. . Neurological: Level of Consciousness is awake, alert, obeys commands, Oriented to person, place, time, Speech is normal, Facial symmetry appears normal, Facial symmetry: tongue is midline. Respiratory: Airway is patent Respiratory effort is even, unlabored, Respiratory pattern is regular, symmetrical. 01:30 General: Appears in no apparent distress, Behavior is appropriate for age, cooperative. jmb Neurological: Level of Consciousness is awake, alert, obeys commands, Oriented to person, place, time. Respiratory: Airway is patent Respiratory effort is even, unlabored, Respiratory pattern is regular, symmetrical. 02:47 General: Appears in no apparent distress, Behavior is appropriate for age, cooperative, jmb Patient noted to have dark red areas to posterior lower back. Informed Pankaj Orozco. Patient reports that it is known that when he runs out of hot water since he is always cold that he has a blow dryer that blows on him to keep him warm. . Neurological: Level of Consciousness is awake, alert, obeys commands, Oriented to person, place, time. Respiratory: Airway is patent Respiratory effort is even, unlabored, Respiratory pattern is regular, symmetrical. 02:56 General: Report given to Nadine Stanley RN. b 03:26 General: pt back from CT dry heaves at this time, received orders from MD for nausea tm5 meds. 05:42 Reassessment: Patient appears in no apparent distress at this time. Patient states tm5 feeling better. Patient states symptoms have improved. 06:13 Reassessment: Patient appears in no apparent distress at this time. Patient denies pain tm5 at this time. Patient states feeling better. Patient states symptoms have improved. Vital Signs: 12/27 21:51 BP 156 / 94; Pulse 103; Resp 20; Temp 98.3(O); Pulse Ox 100% on R/A; Weight 90.26 kg; sew Height 5 ft. 11 in. (180.34 cm); Pain 3/10; 12/28 00:32 BP 141 / 83 Supine; Pulse 103; Resp 20; Pulse Ox 99% on R/A; jmb 00:32 BP 130 / 82 Sitting; Pulse 104; Resp 20; Pulse Ox 98% on R/A; jmb 00:32 BP 100 / 75; Pulse 115; Resp 20; Pulse Ox 97% on R/A; jmb 02:45 BP 155 / 85 Supine; Pulse 110; Resp 18; Pulse Ox 98% on R/A; jmb 02:45 BP 140 / 83 Sitting; Pulse 114; Resp 20; Pulse Ox 100% on R/A; jmb 02:45 BP 116 / 64 Standing; Pulse 114; Resp 20; Pulse Ox 98% on R/A; jmb 05:42 BP 118 / 72; Pulse 78; Resp 20; Temp 97.9(O); Pulse Ox 94% on R/A; Pain 3/10; tm5 06:13 BP 122 / 56; Pulse 80; Resp 18; Temp 98.6(O); Pulse Ox 96% on R/A; Pain 0/10; tm5 12/27 21:51 Body Mass Index 27.75 (90.26 kg, 180.34 cm) sew Vitals: 12/27 21:51 Log In Time: December 27, 2016 at 21:50. RN notified that patient meets Red Flag sew criteria. ED Course: 21:50 Patient visited by Toya Lanza. sew 21:50 Patient moved to Waiting sew 21:51 [facility] is Private Physician. sew 21:53 Patient visited by Toya Lanza. sew 21:54 Patient moved to Pre RCE sew 21:59 Triage Initiated rs3 22:27 Patient moved to Triage 3 kmg1 23:16 Pk Collins RPA-C is PHCP. ck7 23:16 Kiet Barreto DO is Attending Physician. ck7 23:16 Patient visited by Pk Collins RPA-C. ck7 23:48 Patient moved to I1 / M1 tm5 23:49 Patient moved to I5 / M5 kmg1 02 00:01 Amylase Sent. jmb 00:01 Basic Metabolic Profile Sent. jmb 00:01 CBC with Diff Sent. jmb 00:01 Lipase Sent. jmb 00:01 Liver Profile Sent. jmb 00:01 Urinalysis Sent. jmb 00:01 Urine Culture Sent. jmb 00:01 Inserted saline lock: 20 gauge in left antecubital area and blood collected. The mcp patient tolerated the procedure well. Labs drawn. (by ED staff). Sent per order to lab. Urine collected. Clean catch specimen. Urine specimen sent to lab. 00:02 The patient / caregiver is instructed regarding the plan of care and ED course. Placed mcp in gown. Bed in low position. Call light in reach. 00:03 Patient visited by Allison James RN. [facility] 00:33 [facility] Payment Agreement was scanned into [employer] and attached to record. hs2 00:35 Patient visited by Aj Willett RN. jmb 01:11 Patient visited by Pk Collins RPA-C. ck7 01:41 Patient visited by Pk Collins RPA-C. ck7 02:15 Patient visited by Pk Collins RPA-C. ck7 02:48 Patient visited by Aj Willett RN. jmb 02:54 Shantel Jackson RN is Primary Nurse. jlm 02:54 Patient moved to 9 jlm 02:57 Primary Nurse role handed off by Shantel Jackson RN jmb 03:13 Patient visited by Nadine Stanley,CHANDLER. tm5 03:[address] tm5 03:[address] moved back from [address]. tm5 04:13 Patient visited by Nadine Stanley,CHANDLER. tm5 04:55 CT ABD & PELVIS: IV Contrast Only Returned. EDMS 05:42 Patient visited by Nadine Stanley RN. tm5 06:13 Discontinued lock intact, bleeding controlled, pressure dressing applied, No tm5 redness/swelling at site. No procedures done that require assistance. 14:32 Abdomen, Flat\E\Upright,PA Chest Returned. EDMS 20:50 T-Sheet-- Draft Copy was scanned into [employer] and attached to record. klr Administered Medications: 00:00 Drug: Ondansetron 4 mg [ondansetron HCl 2 mg/mL intravenous solution (2 mL)] Route: jmb IVP; Site: left antecubital; 03:01 Follow up: Response: Nausea is unchanged jmb 00:00 Drug: pantoprazole 40 mg [pantoprazole 40 mg intravenous solution] Route: IV; Rate: jmb bolus; Site: left antecubital; 03:01 Follow up: Response: No Adverse Reaction jmb 00:01 Drug: NS 0.9% 1000 ml [sodium chloride 0.9 % intravenous solution] Route: IV; Rate: jmb bolus; Site: left antecubital; 03:02 Follow up: IV Status: Completed infusion jmb 00:54 Drug: NS 0.9% 1000 ml [sodium chloride 0.9 % intravenous solution] Route: IV; Rate: jmb bolus; Site: left antecubital; 03:01 Follow up: IV Status: Completed infusion jmb 02:05 Drug: Metoclopramide 10 mg [metoclopramide 5 mg/mL injection solution] Route: IV; Rate: jmb 40 mg/hr; Infused Over: 15 mins; Site: left antecubital; 03:01 Follow up: Response: Nausea is decreased jmb 03:26 Drug: Ondansetron 4 mg [ondansetron HCl 2 mg/mL intravenous solution (2 mL)] Route: tm5 IVP; Site: left antecubital; 04:14 Follow up: Response: Nausea is decreased; No Adverse Reaction tm5 Point of Care Testing: Blood Glucose: 12/27 21:59 Blood Glucose: 159 mg/dL; kmg1 Ranges: Order Results: Lab Order: Fingerstick Blood Sugar; SPEC'M 12/27/16 21:57 Test: BEDSIDE GLUCOSE; Value: 156; Range: 70-105; Abnormal: Above high normal; Units: MG/DL; Status: F Lab Order: Amylase; SPEC12/27/16 23:57 Test: AMYLASE; Value: 55; Range: 25-115; Units: U/L; Status: F Lab Order: Basic Metabolic Profile; SPEC12/27/16 23:57 Test: GLUCOSE, FASTING; Value: 155; Range: 70-105; Abnormal: Above high normal; Units: MG/DL; Status: F Test: BLOOD UREA NITROGEN; Value: 27; Range: 7-18; Abnormal: Above high normal; Units: MG/DL; Status: F Test: CREATININE FOR GFR; Value: 1.27; Range: 0.70-1.30; Units: MG/DL; Status: F Test: GLOMERULAR FILTRATION RATE; Value: > 60.0; Range: >56; Status: F Test: SODIUM LEVEL; Value: 139; Range: 136-145; Units: MEQ/L; Status: F Test: POTASSIUM SERUM; Value: 4.1; Range: 3.5-5.1; Units: MEQ/L; Status: F Test: CHLORIDE LEVEL; Value: 102; Range: 98-107; Units: MEQ/L; Status: F Test: CARBON DIOXIDE LEVEL; Value: 29; Range: 21-32; Units: MEQ/L; Status: F Test: ANION GAP; Value: 8; Range: 8-16; Units: MEQ/L; Status: F Test: CALCIUM LEVEL; Value: 9.3; Range: 8.5-10.1; Units: MG/DL; Status: F Test Note: ; Units are mL/min/1.73 m2 Chronic Kidney Disease Staging per NKF: Stage I & II GFR >=60 Normal to Mildly Decreased Stage III GFR 30-59 Moderately Decreased Stage IV GFR 15-29 Severely Decreased Stage V GFR <15 Very Little GFR Left ESRD GFR <15 on [employer] Lab Order: CBC with Diff; SPEC12/27/16 23:57 Test: WHITE BLOOD COUNT; Value: 13.6; Range: 4.0-10.0; Abnormal: Above high normal; Units: K/mm3; Status: F Test: RED BLOOD COUNT; Value: 6.15; Range: 4.30-6.10; Abnormal: Above high normal; Units: M/mm3; Status: F Test: HEMOGLOBIN; Value: 17.6; Range: 14.0-18.0; Units: g/dl; Status: F Test: HEMATOCRIT; Value: 52.8; Range: 42.0-52.0; Abnormal: Above high normal; Units: %; Status: F Test: MEAN CORPUSCULAR VOLUME; Value: 85.8; Range: 80.0-96.0; Units: fl; Status: F Test: MEAN CORPUSCULAR HEMOGLOBIN; Value: 28.6; Range: 27.0-33.0; Units: pg; Status: F Test: MEAN CORPUSCULAR HGB CONC; Value: 33.4; Range: 32.0-36.5; Units: g/dl; Status: F Test: RED CELL DISTRIBUTION WIDTH; Value: 13.5; Range: 11.5-14.5; Units: %; Status: F Test: PLATELET COUNT, AUTOMATED; Value: 247; Range: 150-450; Units: k/mm3; Status: F Test: NEUTROPHILS %; Value: 79.2; Range: 36.0-66.0; Abnormal: Above high normal; Units: %; Status: F Test: LYMPH %; Value: 11.3; Range: 24.0-44.0; Abnormal: Below low normal; Units: %; Status: F Test: MONO %; Value: 7.2; Range: 0.0-5.0; Abnormal: Above high normal; Units: %; Status: F Test: EOS %; Value: 0.7; Range: 0.0-3.0; Units: %; Status: F Test: BASO %; Value: 0.5; Range: 0.0-1.0; Units: %; Status: F Test: LARGE UNSTAINED CELL %; Value: 1.0; Range: 0.0-4.0; Units: %; Status: F Test: NEUTROPHILS #; Value: 10.8; Range: 1.8-7.7; Abnormal: Above high normal; Units: K/mm3; Status: F Test: LYMPH #; Value: 1.7; Range: 1.5-4.5; Units: K/mm3; Status: F Test: MONO #; Value: 1.0; Range: 0.0-0.8; Abnormal: Above high normal; Units: K/mm3; Status: F Test: EOS #; Value: 0.1; Range: 0.0-0.50; Units: K/mm3; Status: F Test: BASO #; Value: 0.1; Range: 0.0-0.2; Units: K/mm3; Status: F Test: LARGE UNSTAINED CELL #; Value: 0.1; Range: 0.0-0.4; Units: K/mm3; Status: F Lab Order: Lipase; [facility] 12/27/16 23:57 Test: LIPASE; Value: 58; Range: 73-393; Abnormal: Below low normal; Units: U/L; Status: F Lab Order: Liver Profile; [facility] 12/27/16 23:57 Test: AST/SGOT; Value: 19; Range: 15-37; Units: U/L; Status: F Test: ALT/SGPT; Value: 37; Range: 12-78; Units: U/L; Status: F Test: ALKALINE PHOSPHATASE; Value: 98; Range: 45-117; Units: U/L; Status: F Test: BILIRUBIN,TOTAL; Value: 1.2; Range: 0.2-1.0; Abnormal: Above high normal; Units: MG/DL; Status: F Test: BILIRUBIN,DIRECT; Value: 0.2; Range: 0.0-0.2; Units: MG/DL; Status: F Test: TOTAL PROTEIN; Value: 8.5; Range: 6.4-8.2; Abnormal: Above high normal; Units: GM/DL; Status: F Test: ALBUMIN; Value: 4.2; Range: 3.2-5.2; Units: GM/DL; Status: F Test: ALBUMIN/GLOBULIN RATIO; Value: 0.98; Range: 1.00-1.93; Abnormal: Below low normal; Status: F Lab Order: Urinalysis; 12/27/16 23:57 Test: APPEARANCE, URINE; Value: HAZY; Range: CLEAR; Status: F Test: COLOR, URINE; Value: YELLOW; Range: YELLOW; Status: F Test: PH,URINE; Value: 5.0; Range: 5.0-9.0; Units: UNITS; Status: F Test: SPECIFIC GRAVITY URINE AUTO; Value: 1.031; Range: 1.002-1.035; Status: F Test: PROTEIN, URINE AUTO; Value: 1+; Range: NEGATIVE; Abnormal: Above high normal; Units: mg/dL; Status: F Test: GLUCOSE, URINE (UA) AUTO; Value: NEGATIVE; Range: NEGATIVE; Units: mg/dL; Status: F Test: KETONE, URINE AUTO; Value: 2+; Range: NEGATIVE; Abnormal: Above high normal; Units: mg/dL; Status: F Test: UROBILINOGEN, URINE AUTO; Value: 2.0; Range: 0.0-2.0; Abnormal: Above high normal; Units: mg/dL; Status: F Test: BILIRUBIN, URINE AUTO; Value: NEGATIVE; Range: NEGATIVE; Status: F Test: NITRITE, URINE AUTO; Value: NEGATIVE; Range: NEGATIVE; Status: F Test: LEUKOCYTE ESTERASE, URINE AUTO; Value: NEGATIVE; Range: NEGATIVE; Status: F Test: BLOOD, URINE BLOOD; Value: NEGATIVE; Range: NEGATIVE; Status: F Test: WBC, URINE AUTO; Value: 1; Range: 0-3; Units: /HPF; Status: F Test: RBC, URINE AUTO; Value: 1; Range: 0-3; Units: /HPF; Status: F Test: BACTERIA, URINE AUTO; Value: NEGATIVE; Range: NEGATIVE; Status: F Test: SQUAMOUS EPITHELIAL CELL UR AU; Value: 0; Range: 0-6; Units: /HPF; Status: F Test: MUCUS, URINE; Value: SMALL; Range: NEGATIVE; Status: F Test: SPERM, URINE AUTO; Value: SMALL; Range: NONE; Abnormal: Above high normal; Status: F Test: HYALINE CAST, URINE AUTO; Value: 0; Range: 0-1; Units: /LPF; Status: F Lab Order: Urine Culture; SPEC'M 12/27/16 23:57 Test: URINE CULTURE; Value: <EXTERNAL COMMENT eCWMed> FULL REPORT IN LAB NOTES (eCW and [facility]).; Status: F Test: URINE CULTURE; Value: URINE CULTURE RESULT NO GROWTH; Status: F Radiology Order: Abdomen, Flat\E\Upright,PA Chest Test: Abdomen, Flat\E\Upright,PA Chest REASON FOR EXAMINATION: Abdomen Pain; ACUTE ABDOMINAL SERIES: 12/28/2016.; ; Clinical history: Abdominal pain.; ; Comparison: Portable chest 12/08/2007, abdominal series 09/29/2007.; ; Findings: PA chest: Lung horner well inflated and clear. Heart, mediastinal; and hilar contours normal. Airway intact . Bony thorax unremarkable. No free; air under the diaphragm.; ; Flat upright abdomen: The gas pattern is nonspecific. There is stool and gas; scattered in the colon without dilatation and gas in small bowel loops without; dilatation or any air fluid levels of significance. There are no masses,; abnormal calcifications or significant acute bony findings. There is some minor; degenerative changes hips and lower lumbar spine.; ; Impression:; ; 1. Nonspecific gas pattern without obstruction, mass or free air.; ; 2. PA chest negative.; ; ; Signed by; Randal Weller MD 12/28/2016 07:25 P; Radiology Order: CT ABD & PELVIS: IV Contrast Only Test: CT ABD & PELVIS: IV Contrast Only REASON FOR EXAMINATION: Abdomen Pain; ; CLINICAL HISTORY: Abdominal pain.; TECHNIQUE: Multiple axial, sagittal and coronal CT images were obtained through the abdomen and pelvi; s after administration of intravenous contrast material.; COMMENTS:; The liver is of uniform attenuation without mass or defect. There is no intra or extrahepatic biliary; ductal dilatation. The spleen is normal. The gallbladder is within normal limits. The pancreas is of; normal contour and attenuation characteristics. There is no evidence of adrenal mass.; Both kidneys demonstrate prompt and equal nephrograms. The kidneys are normal in size, shape and conf; iguration. There is no evidence of renal or ureteral mass. No renal or ureteral calculi are identifie; d. There is no hydroureter or hydronephrosis.; No evidence for appendicitis. There is no bowel wall thickening. No evidence for small or large rob; l obstruction. There is no evidence of abdominal ascites or lymphadenopathy.; There is no evidence of intrinsic or extrinsic bladder mass. There is no pelvic ascites or lymphadeno; marcelina. Prostatic calcifictions are noted.; Images of the lung bases show no evidence of pleural or parenchymal mass. There are no pleural effusi; ons.; The bony structures are free of lytic or blastic lesions.; IMPRESSION:; No evidence of acute abdominal or pelvic pathology.; Thank you for your kind referral of this patient.; ; Outcome: 12/28 05:56 Discharge ordered by Provider. [id number] 06:13 Discharge Assessment: Patient awake, alert and oriented x 3. No cognitive and/or tm5 functional deficits noted. Patient verbalized understanding of disposition instructions. patient administered narcotics - no. The following High Risk Discharge criteria are identified: None. Discharged to home ambulatory. Condition: good Condition: stable Condition: improved. Discharge instructions given to patient, Instructed on discharge instructions, follow up and referral plans. medication usage, diet, PO fluids intake for Hydration. CT Study completed. Property :Personal belongings accompany Pt. 06:15 Patient left the ED. tm5 Signatures: Dispatcher [employer] EDMS Jillian Griffin, RN RN kmg1 Allison James RN RN Kiet Miller, DO [id number] Leora Akins,RN RN rs3 Pk Collins, RPA-C [id number] Toya Lanza JoshuaRN RN Kalani Nolan, [employer] Sarah Ramírez, Reg Reg 2 Nae Mims Tonya,RN RN tm5 Chart Complete [facility]
== END 2016-12-28 06:48 | disposition home or self-care (01) ==
LOC: M ED 21:48
DX: A08.4 Viral intestinal infection, unspecified (principal); E11.9 Type 2 diabetes mellitus without complications; F41.9 Anxiety disorder, unspecified; Z79.899 Other long term (current) drug therapy; Z79.82 Long term (current) use of aspirin; Z79.84 Long term (current) use of oral hypoglycemic drugs; Z79.4 Long term (current) use of insulin; F17.210 Nicotine dependence, cigarettes, uncomplicated
CPT/HCPCS: 36415; 74022; 74177; 80048; 80076; 81001; 82150; 83690; 85025; 87086; 96361; 96374; 96375; 96376; 99284; C9113; J2405; J2765; Q9967

== ENCOUNTER 2017-02-12 13:42 | Emergency (ER) | payer OTHER ==
[~2017-02-12] VITALS: Ht 180.3 cm; Wt 81.6 kg
[~2017-02-12 13:42] MED LIST: ASPI81TA7 PO; GABA-283 PO; GABA800T PO; INSUH10VL SC; INSULANT SC; NICO14DI20 TD; VITA50003 PO; ZOLO100T PO
[2017-02-12] MEDS ORDERED: WELLTAB38 PO (13:58)
[2017-02-12] MEDS ORDERED: PROZ20CA11 PO (13:58)
[2017-02-12] MEDS ORDERED: NS 1,000 ML IV ONE (14:30)
[2017-02-12] MEDS ORDERED: ONDANSETRON 4MG/2ML VIAL (J2405) IV ONE (14:30)
[2017-02-12 14:37] LABS: INR 1.06
[2017-02-12 15:38] LABS: ALBUMIN 3.9 GM/DL (3.2-5.2); ALBUMIN/GLOBULIN RATIO 1.18 (1.00-1.93); ALKALINE PHOSPHATASE 85 U/L (45-117); ALT/SGPT 31 U/L (12-78); ANION GAP 7 MEQ/L (8-16); AST/SGOT 17 U/L (15-37); BILIRUBIN,DIRECT 0.2 MG/DL (0.0-0.2); BILIRUBIN,TOTAL 1.7 MG/DL (0.2-1.0); BLOOD UREA NITROGEN 24 MG/DL (7-18); CALCIUM LEVEL 9.2 MG/DL (8.5-10.1); CARBON DIOXIDE LEVEL 29 MEQ/L (21-32); CHLORIDE LEVEL 100 MEQ/L (98-107); GLOMERULAR FILTRATION RATE > 60.0 (>56); GLUCOSE, FASTING 157 MG/DL (70-105); SODIUM LEVEL 136 MEQ/L (136-145); TOTAL PROTEIN 7.2 GM/DL (6.4-8.2)
[2017-02-12] MEDS ORDERED: ISOVUE-370 76% 100ML VIAL (Q9967) As Ordered ONE (15:42)
[2017-02-12 15:52] LABS: BASO # 0.1 K/mm3 (0.0-0.2); BASO % 0.5 % (0.0-1.0); EOS # 0.1 K/mm3 (0.0-0.50); EOS % 0.6 % (0.0-3.0); LARGE UNSTAINED CELL # 0.2 K/mm3 (0.0-0.4); LARGE UNSTAINED CELL % 1.8 % (0.0-4.0); LYMPH # 1.8 K/mm3 (1.5-4.5); LYMPH % 14.2 % (24.0-44.0); MEAN CORPUSCULAR HEMOGLOBIN 29.6 pg (27.0-33.0); MEAN CORPUSCULAR HGB CONC 34.6 g/dl (32.0-36.5); MEAN CORPUSCULAR VOLUME 85.6 fl (80.0-96.0); MONO # 0.8 K/mm3 (0.0-0.8); MONO % 6.4 % (0.0-5.0); NEUTROPHILS # 9.4 K/mm3 (1.8-7.7); NEUTROPHILS % 76.5 % (36.0-66.0); PLATELET COUNT, AUTOMATED 266 k/mm3 (150-450); RED CELL DISTRIBUTION WIDTH 13.1 % (11.5-14.5); WHITE BLOOD COUNT 12.3 K/mm3 (4.0-10.0)
--- NOTE | 2017-02-12 16:15 | REP ---
Clinical: Acute mid abdominal pain. Technique: Axial contrast enhanced images from the lung bases to the pubic symphysis using 100 ml Isovue 370 intravenous contrast material with coronal and sagittal re-formations. Comparison: 12/28/2016. Findings: Liver, spleen, pancreas, gallbladder, bilateral adrenal glands and kidneys are normal. The enteric system is without obstruction or acute inflammatory process. Normal terminal ileum and appendix identified in the right lower quadrant. A few scattered sigmoid diverticula suggested without acute diverticulitis. Pelvis demonstrates normal bladder and age appropriate prostate/seminal vesicles. No ascites. No free air. No adenopathy. Atherosclerotic changes of the aorta noted without aneurysm. Skeletal structures demonstrate degenerative changes without focal osseous abnormality. There is a small fluid collection in relation to the left hip joint consistent with chronic bursitis. Impression: 1. No acute intra-abdominal or pelvic pathology appreciated. 2. Few sigmoid diverticula suggested without acute diverticulitis. 3. No ascites. No adenopathy. No mass. 4. Small fluid collection in relation to the left hip suggests chronic bursitis. Signed by Wei Cartagena MD 02/12/2017 04:06 P
[2017-02-12] MEDS ORDERED: ZOFR4TAB3 PO (17:22)
[2017-02-12] MEDS ORDERED: PRIL20CA9 PO (17:22)
[2017-02-12 17:55] VITALS: BP 137/89
== END 2017-02-12 17:57 | disposition home or self-care (01) ==
LOC: M ED 16:46
DX: K52.9 Noninfective gastroenteritis and colitis, unspecified (principal); E11.9 Type 2 diabetes mellitus without complications; Z82.49 Family history of ischemic heart disease and other diseases of the circulatory system; Z79.899 Other long term (current) drug therapy; Z79.82 Long term (current) use of aspirin; Z79.4 Long term (current) use of insulin
CPT/HCPCS: 74177; 80048; 80076; 81001; 83690; 85025; 85610; 93041; 96374; 99284; J2405; Q9967

== ENCOUNTER 2017-02-13 10:01 | Emergency (ER) | payer OTHER ==
[~2017-02-13] VITALS: Ht 180.3 cm; Wt 81.6 kg
[~2017-02-13 10:01] MED LIST changes: +PRIL20CA9 PO; +PROZ20CA11 PO; +WELLTAB38 PO; +ZOFR4TAB3 PO
[2017-02-13] MEDS ORDERED: NS 1,000 ML IV ONE (10:45)
[2017-02-13 11:07] LABS: BASO # 0.1 K/mm3 (0.0-0.2); BASO % 0.5 % (0.0-1.0); EOS # 0.1 K/mm3 (0.0-0.50); EOS % 0.9 % (0.0-3.0); LARGE UNSTAINED CELL # 0.2 K/mm3 (0.0-0.4); LARGE UNSTAINED CELL % 1.4 % (0.0-4.0); LYMPH # 1.9 K/mm3 (1.5-4.5); LYMPH % 14.8 % (24.0-44.0); MEAN CORPUSCULAR HEMOGLOBIN 29.5 pg (27.0-33.0); MEAN CORPUSCULAR HGB CONC 34.6 g/dl (32.0-36.5); MEAN CORPUSCULAR VOLUME 85.3 fl (80.0-96.0); MONO # 0.7 K/mm3 (0.0-0.8); MONO % 6.4 % (0.0-5.0); NEUTROPHILS # 8.8 K/mm3 (1.8-7.7); PLATELET COUNT, AUTOMATED 254 k/mm3 (150-450); RED CELL DISTRIBUTION WIDTH 13.2 % (11.5-14.5); WHITE BLOOD COUNT 11.5 K/mm3 (4.0-10.0)
[2017-02-13] MEDS ORDERED: ONDANSETRON 4MG/2ML VIAL (J2405) IV ONE (11:15)
[2017-02-13] MEDS ORDERED: KETOROLAC 30 MG/ML VIAL (J1885) IV ONE (11:15)
[2017-02-13 11:39] LABS: ALBUMIN 4.3 GM/DL (3.2-5.2); ALBUMIN/GLOBULIN RATIO 1.19 (1.00-1.93); BILIRUBIN,DIRECT 0.3 MG/DL (0.0-0.2); BILIRUBIN,TOTAL 1.9 MG/DL (0.2-1.0); CALCIUM LEVEL 9.3 MG/DL (8.5-10.1); CREATININE FOR GFR 1.39 MG/DL (0.70-1.30); GLOMERULAR FILTRATION RATE 57.6 (>56); POTASSIUM SERUM 3.3 MEQ/L (3.5-5.1); TOTAL PROTEIN 7.9 GM/DL (6.4-8.2)
[2017-02-13 12:47] VITALS: BP 118/82
== END 2017-02-13 12:52 | disposition home or self-care (01) ==
LOC: M ED 10:46
DX: B34.9 Viral infection, unspecified (principal); E86.0 Dehydration
CPT/HCPCS: 36415; 80048; 80076; 81001; 83690; 85025; 87804; 87880; 96374; 96375; 99284; J1885; J2405

== ENCOUNTER 2017-03-12 16:51 | Inpatient (IN) | payer OTHER ==
[~2017-03-12] VITALS: Ht 180.3 cm; Wt 88.7 kg
[2017-03-12] MEDS ORDERED: NS 1,000 ML IV ONE ×2 (17:45→21:45)
[2017-03-12] MEDS ORDERED: METOCLOPRAMIDE INJ 10MG/2ML VIAL (J2765) IV ONE (18:00)
[2017-03-12 18:53] LABS: BASO # 0.1 K/mm3 (0.0-0.2); BASO % 0.6 % (0.0-1.0); EOS # 0.1 K/mm3 (0.0-0.50); EOS % 0.9 % (0.0-3.0); LARGE UNSTAINED CELL # 0.3 K/mm3 (0.0-0.4); LYMPH # 1.9 K/mm3 (1.5-4.5); LYMPH % 17.8 % (24.0-44.0); MEAN CORPUSCULAR HEMOGLOBIN 31.2 pg (27.0-33.0); MEAN CORPUSCULAR VOLUME 86.7 fl (80.0-96.0); MONO # 0.8 K/mm3 (0.0-0.8); MONO % 7.5 % (0.0-5.0); NEUTROPHILS # 7.6 K/mm3 (1.8-7.7); NEUTROPHILS % 70.2 % (36.0-66.0); PLATELET COUNT, AUTOMATED 251 k/mm3 (150-450); RED CELL DISTRIBUTION WIDTH 13.8 % (11.5-14.5); WHITE BLOOD COUNT 10.9 K/mm3 (4.0-10.0)
[2017-03-12 18:55] LABS: ALBUMIN 4.5 GM/DL (3.2-5.2); ALBUMIN/GLOBULIN RATIO 1.22 (1.00-1.93); ALKALINE PHOSPHATASE 103 U/L (45-117); ALT/SGPT 26 U/L (12-78); ANION GAP 11 MEQ/L (8-16); AST/SGOT 18 U/L (15-37); BILIRUBIN,TOTAL 1.8 MG/DL (0.2-1.0); BLOOD UREA NITROGEN 49 MG/DL (7-18); CALCIUM LEVEL 10.1 MG/DL (8.5-10.1); CARBON DIOXIDE LEVEL 27 MEQ/L (21-32); CHLORIDE LEVEL 97 MEQ/L (98-107); CREATININE FOR GFR 1.62 MG/DL (0.70-1.30); GLOMERULAR FILTRATION RATE 48.3 (>56); GLUCOSE, FASTING 157 MG/DL (70-105); POTASSIUM SERUM 4.1 MEQ/L (3.5-5.1); SODIUM LEVEL 135 MEQ/L (136-145); TOTAL PROTEIN 8.2 GM/DL (6.4-8.2)
[2017-03-12] MEDS ORDERED: FLUoxetine 20 MG CAP PO SCH (21:00)
[2017-03-12] MEDS ORDERED: ASPIRIN 81 MG ENTERIC TAB PO SCH (21:00)
[2017-03-12] MEDS ORDERED: GABAPENTIN 400 MG CAP PO SCH (21:00)
[2017-03-13] MEDS ORDERED: ONDANSETRON 4MG/2ML VIAL (J2405) IV PRN (00:30)
[2017-03-13] MEDS ORDERED: ACETAMINOPHEN TAB 650MG DOSE (2X325MG) PO PRN (00:30)
--- NOTE | 2017-03-13 01:00 | HPE ---
DATE OF ADMISSION: 03/13/2017 This is a patient of [facility] in [place]. Podiatry is at the [facility] in [place]. CHIEF COMPLAINT: Lightheaded and nausea. SUMMARY OF PRESENTATION: This is a 51-year-old who last felt well on March 09. On March 10 he says he felt like "crap." He was nauseous. Not vomiting. Had achy legs, chest tightness. Had shortness of breath, which was helped somewhat by breathing into a paper bag. He was having an anxiety attack. He has had intermittent chest tightness since that time. It lasted for long periods. He does not know when his last stress test was. It was not recently. It was associated with diaphoresis, not with fever. Not made worse with position or eating. Not made worse with activity. His nausea has not been associated with abdominal pain, change in bowel or bladder habits. Has been getting worse each day. Today he felt lightheaded and nauseous, and his sister made him come to the hospital. He was fluid resuscitated in the emergency department but remained orthostatic, and I was called for admission. PAST MEDICAL HISTORY: Notable for: 1. Diabetes. 2. Anxiety. 3. Depression. SURGICAL HISTORY: Notable for two surgeries to the left foot, a partial amputation of the left great toe and a total amputation of the left 2nd toe. SOCIAL HISTORY: He is from [place]. He quit smoking around two years ago. Has a long smoking history. Does not use any alcohol. Does have Telehealth to help manage his diabetes. Blood pressure is arranged by the [facility]. FAMILY HISTORY: Notable for a mother, 73, alive and well, father who at age 70 with diabetes and unknown cancer. ALLERGIES: He had no known drug allergies. MEDICATIONS AT HOME: Include: - sliding-scale insulin - Lantus 45 units at bedtime - Neurontin 800 mg at night and 400 mg twice a day - Prozac 20 mg at bedtime - Wellbutrin XL 150 mg daily - aspirin 81 mg daily - vitamin D supplement once weekly REVIEW OF SYSTEMS: Notable for no headache, no visual change, no runny nose, no sore throat, no cough, no shortness of breath, no fever. He does suffer from night sweats. Does not describe any weight loss. No change in bowel or bladder habits. No orthopnea. No paroxysmal nocturnal dyspnea. Otherwise unremarkable. PHYSICAL EXAMINATION: Most recent blood pressure is 165/88, pulse of 93, most recent temperature 97.2, most recent respirations 18. Orthostatics were done at 2141 and still showed him to be grossly orthostatic. He is awake and appropriately interactive. Seems somewhat anxious. Head is normocephalic. Sinuses nontender. Pupils equal, round, reactive. Anicteric. Not injected. Nasal septum is midline. Mucous membranes are moist. Neck is supple, thick. No elevation in jugular venous pulse (JVP). Breathing is symmetrical rested. Inspiratory to expiratory (I-to-E) ratio is 1:3. No wheezes, rales, or rhonchi. There is erythema, his whole lower back bilaterally. Apparently he has been taking quite hot showers for some time, which has left him with erythema and mottling on his back. Heart is distant sounding, normal S1, S2. Radial pulses 2+. Capillary refill is less than 2 seconds. Abdomen soft, doughy, nontender with normoactive bowel sounds. No significant lower extremity edema. Sensation is grossly intact to light touch in both feet. He has a partial amputation of his left 1st toe and a total amputation of his left 2nd toe. White cell count 10.9, hemoglobin 18.4. Sodium 135, potassium 4.1, chloride 97, carbon dioxide 27, BUN 49, creatinine 1.62, glucose of 157, lactic acid 1.9. Total bilirubin 1.8. Troponin less than 0.02. CK 163. Albumin 4.5. CT of the abdomen and pelvis was done, which shows no free fluid. No free air. Nonspecific bowel pattern. Normal appendix with clear lung bases. ASSESSMENT: This is a 51-year-old with orthostasis and acute renal failure. Patient will require 2-midnight hospital stay. PLAN: 1. Orthostasis/acute renal failure. Patient will continue to receive intravenous (IV) fluids. Diet will be advanced. Nausea is improving. Underlying cause of his nausea is unclear. There is no clear viral illness. Will continue to monitor the patient in hospital and follow his orthostatic vital signs, which I believe will begin to improve. 2. Patient has diabetes. Continue with insulin sliding scale and diabetic diet. 3. Patient has anxiety and depression. Will continue his home medications. Of note, he does have some behaviors, which indicates severity of his anxiety, including taking hot showers, which has left him with skin findings. 4. Deep vein thrombosis (DVT) prophylaxis is ordered. 5. Patient will be sent out to Dr. Gomez.
[2017-03-13 01:15] VITALS: BP 176/88
[2017-03-13] MEDS: NS 1,000 ML IV SCH ×2 (01:45→11:29)
[2017-03-13] MEDS: LEVEMIR (INSULIN DETEMIR) 1 UNITS/0.01ML SC SCH ×2 (01:45→08:13)
[2017-03-13 06:00] VITALS: BP_SYST 107; BP_SYST 134; BP_SYST 69; BP_DIAS 46; BP_DIAS 72; BP_DIAS 89
[2017-03-13 06:26] LABS: BASO % 0.5 % (0.0-1.0); EOS # 0.1 K/mm3 (0.0-0.50); EOS % 1.1 % (0.0-3.0); LARGE UNSTAINED CELL # 0.2 K/mm3 (0.0-0.4); LARGE UNSTAINED CELL % 2.4 % (0.0-4.0); LYMPH # 1.8 K/mm3 (1.5-4.5); LYMPH % 21.5 % (24.0-44.0); MONO # 0.6 K/mm3 (0.0-0.8); MONO % 7.3 % (0.0-5.0); NEUTROPHILS # 5.7 K/mm3 (1.8-7.7); NEUTROPHILS % 67.2 % (36.0-66.0); RED CELL DISTRIBUTION WIDTH 13.8 % (11.5-14.5); WHITE BLOOD COUNT 8.5 K/mm3 (4.0-10.0)
[2017-03-13 06:29] LABS: MEAN CORPUSCULAR VOLUME 87.6 fl (80.0-96.0)
[2017-03-13 06:30] LABS: MEAN CORPUSCULAR HGB CONC 34.3 g/dl (32.0-36.5); PLATELET COUNT, AUTOMATED 204 k/mm3 (150-450)
[2017-03-13 06:48] LABS: ALKALINE PHOSPHATASE 77 U/L (45-117); ALT/SGPT 19 U/L (12-78); ANION GAP 6 MEQ/L (8-16); AST/SGOT 14 U/L (15-37); BILIRUBIN,TOTAL 1.2 MG/DL (0.2-1.0); BLOOD UREA NITROGEN 32 MG/DL (7-18); CARBON DIOXIDE LEVEL 29 MEQ/L (21-32); CHLORIDE LEVEL 104 MEQ/L (98-107); CREATININE FOR GFR 1.19 MG/DL (0.70-1.30); GLOMERULAR FILTRATION RATE > 60.0 (>56); GLUCOSE, FASTING 155 MG/DL (70-105); POTASSIUM SERUM 4.2 MEQ/L (3.5-5.1); SODIUM LEVEL 139 MEQ/L (136-145)
[2017-03-13 07:09] LABS: CALCIUM LEVEL 7.8 MG/DL (8.5-10.1); TOTAL PROTEIN 6.4 GM/DL (6.4-8.2)
[2017-03-13 07:10] LABS: ALBUMIN 3.2 GM/DL (3.2-5.2)
--- NOTE | 2017-03-13 07:17 | REP ---
Clinical: Abdominal pain and vomiting. Comparison: 02/12/2017. Findings: Lung bases are clear. Visualized heart and pericardium normal. Liver, spleen, pancreas, gallbladder, bilateral adrenal glands and kidneys are normal for noncontrast evaluation. The enteric system is without obstruction or acute inflammatory process. Normal terminal ileum and appendix identified in the right lower quadrant. Scattered colonic diverticula noted without acute diverticulitis. Pelvis demonstrates normal bladder and age appropriate prostate/seminal vesicles. No ascites. No adenopathy. No free air. Atherosclerotic changes of the aorta noted without aneurysm. Musculoskeletal structures demonstrate age-related degenerative changes without focal osseous abnormality. Impression: No acute intra-abdominal or pelvic pathology appreciated. Scattered colonic diverticula without acute diverticulitis. Signed by Wei Cartagena MD 03/13/2017 07:09 A
--- NOTE | 2017-03-13 07:30 | REP ---
ABDOMINAL SERIES: Supine and erect views of the abdomen demonstrate no free air. A few mildly dilated small bowel loops in the left upper quadrant may represent a mild ileus. However, some degree of small bowel obstruction cannot totally be excluded. Air and material is scattered throughout the colon, which is not dilated. Phleboliths are seen in the pelvis. An accompanying view of the chest demonstrates no acute infiltrate. The heart is normal in size and the mediastinal silhouette is unremarkable. IMPRESSION: A few mildly dilated small bowel loops in the left upper quadrant may represent focal ileus. Cannot totally exclude some degree of small bowel obstruction. Lungs are clear. Signed by Idris Matos MD 03/13/2017 04:34 P
--- NOTE | 2017-03-13 07:46 | IPN ---
DATE: 03/13/2017 This is a 51-year-old gentleman seen at bedside. No overnight issues reported. He feels that he may be doing moderately better. However, when he stood up to have his vital signs checked this morning, he did feel lightheaded still. He does have some sinus pressure and some productive nasal drainage with postnasal drip that he is complaining of today but no fevers, chills or rigors. No chest pain or shortness of breath. No nausea or vomiting. OBJECTIVE: Temperature 97.6, pulse 91 and regular, respiratory rate 18, blood pressure 134/76, SPO2 is 95% on room air. GENERAL: The patient appears to be in no acute distress. He is alert, pleasant. HEENT: Head is atraumatic, normocephalic. Eyes: Pupils are equal, round, and reactive to light and accommodation. Positive purulent nasal drainage is noted. Postnasal drip is noted. Throat clear. NECK: Supple. LUNGS: Clear to auscultation. HEART: Regular rate and rhythm. ABDOMEN: Soft. EXTREMITIES: No edema. No calf tenderness. LABORATORY DATA: White count 8.5, hemoglobin 15.7, and platelets 204,000. Sodium 139, potassium 4.2, chloride 104, bicarbonate 29, anion gap 6, BUN 32, creatinine 1.19, glucose 155, lactic acid 1.9, total bilirubin 1.2, AST 14, ALT 19, alkaline phosphatase 77, lipase 45, TSH is 1.360. ASSESSMENT AND PLAN: 1. Sinusitis. We will start him on some Augmentin today twice daily. 2. Mild orthostasis. We will continue with some IV fluids today. He does have some Zofran on for antiemetics and we will see if we can walk him some the hallways. Continue orthostatic checks. If he improves throughout the day, we may consider discharging as early as later this afternoon. 3. Diabetes. Continue with fingersticks and sliding scale coverage. 4. Anxiety and depression. He appears to be stable on his current medications. No suicidal ideation. No audiovisual hallucinations. 5. Acute renal failure resolved. 6. Deep vein thrombosis (DVT) prophylaxis is in place. DISPOSITION: Anticipate discharge either later today or first thing tomorrow morning. [facility]
[2017-03-13] MEDS: GABAPENTIN 400 MG CAP PO SCH ×2 (08:12→15:27)
[2017-03-13] MEDS ORDERED: buPROPion **XL** TABLET 150MG (WELLBUTRIN XL) PO SCH (09:00)
[2017-03-13] MEDS ORDERED: AUGMENTIN 875 MG TAB PO SCH (09:00)
[2017-03-13] MEDS ORDERED: HEPARIN SOD (PORCINE) 5000 UNITS/ML VIAL SC SCH (09:00)
[2017-03-13 12:43] VITALS: BP_SYST 118; BP_SYST 80; BP_SYST 86; BP_DIAS 60; BP_DIAS 66; BP_DIAS 70
[2017-03-13 14:00] VITALS: BP 154/91
[2017-03-13] MEDS ORDERED: SODIUM CHLORIDE 0.9% 1000 ML IV ONE (14:00)
[2017-03-13 15:03] VITALS: BP_SYST 125; BP_SYST 151; BP_SYST 161; BP_DIAS 101; BP_DIAS 70; BP_DIAS 94
[2017-03-13] MEDS ORDERED: AMOX875T2 PO (15:15)
--- NOTE | 2017-03-13 16:50 | DSES ---
DATE OF ADMISSION: 03/13/2017 DATE OF DISCHARGE: 03/13/2017 PRIMARY CARE PROVIDER: [facility] CONSULTATIONS: None. PROCEDURES: None. COMPLICATIONS: None. ADMISSION/DISCHARGE DIAGNOSES: 1. Orthostasis. 2. Mild acute kidney injury. 3. Nausea and vomiting, possibly viral illness. 4. Diabetes. 5. Anxiety and depression. BRIEF HOSPITAL COURSE: Mr. Quinn was admitted last night as observation for his nausea, vomiting, orthostasis and what appeared to be a viral illness. He felt lightheaded, nauseated and his sister had him come to the hospital at which time he was found to be orthostatic. Did receive some fluid resuscitation and hospitalist was called for an observation status to see how the patient would improve. During breakfast he was tolerating his meals. He did still seem to be somewhat orthostatic. He did receive 1000 mL bolus. Has done well throughout the day, tolerated his lunch and dinner meals and walked in the hallway and was felt to no longer be orthostatic when his blood pressures have been checked and felt to be appropriate for home discharge. DISCHARGE MEDICATIONS: - insulin sliding scale - Lantus 45 units at bedtime - Neurontin 800 mg at night and 400 mg otherwise twice a day - Prozac 20 mg nightly - Wellbutrin XL 150 mg daily - aspirin 81 mg daily - vitamin D supplementation once weekly DISCHARGE CONDITION: Good. DISPOSITION: Discharge to home. DISCHARGE INSTRUCTIONS: Discharge to home. Activity as tolerated. Consistent carbohydrate diet. Drink plenty of fluids. Follow up with [facility] in a week. Return to the emergency department or seek medical attention if symptoms should worsen or progress. He voices understanding. Discharge took 35 minutes.
--- NOTE | 2017-03-14 07:55 | ECGEPIP ---
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
--- NOTE | 2017-03-14 08:36 | ECGEPIP ---
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
== END 2017-03-13 18:21 | disposition home or self-care (01) | DRG 204 ==
LOC: M ED 17:39 → M ED INP 03-13 00:24 → M MS5PR 03-13 01:16
PROVIDERS: ADMIT Internal Medicine; ATTEND Hospitalist
DX: I95.1 Orthostatic hypotension (principal); N17.9 Acute kidney failure, unspecified; J32.9 Chronic sinusitis, unspecified; E11.9 Type 2 diabetes mellitus without complications; F41.9 Anxiety disorder, unspecified; F32.9 Major depressive disorder, single episode, unspecified; B34.9 Viral infection, unspecified; Z79.4 Long term (current) use of insulin; Z79.899 Other long term (current) drug therapy; Z79.82 Long term (current) use of aspirin

== ENCOUNTER 2017-05-08 16:15 | Emergency (ER) | payer OTHER ==
[~2017-05-08] VITALS: Ht 180.3 cm; Wt 77.2 kg
[~2017-05-08 16:15] MED LIST changes: +AMOX875T2 PO; +ASPI1TAB15 PO; -ASPI81TA7 PO; +VITA1CAP40 PO; -VITA50003 PO
[2017-05-08 18:43] LABS: BASO # 0.1 K/mm3 (0.0-0.2); BASO % 0.6 % (0.0-1.0); EOS # 0.1 K/mm3 (0.0-0.50); LARGE UNSTAINED CELL # 0.2 K/mm3 (0.0-0.4); LARGE UNSTAINED CELL % 1.7 % (0.0-4.0); LYMPH # 1.9 K/mm3 (1.5-4.5); LYMPH % 16.6 % (24.0-44.0); MEAN CORPUSCULAR VOLUME 86.2 fl (80.0-96.0); MONO # 0.8 K/mm3 (0.0-0.8); MONO % 8.1 % (0.0-5.0); NEUTROPHILS # 7.5 K/mm3 (1.8-7.7); NEUTROPHILS % 72.2 % (36.0-66.0); PLATELET COUNT, AUTOMATED 229 k/mm3 (150-450); RED CELL DISTRIBUTION WIDTH 12.8 % (11.5-14.5); WHITE BLOOD COUNT 10.4 K/mm3 (4.0-10.0)
[2017-05-08 18:59] LABS: CALCIUM LEVEL 9.3 MG/DL (8.5-10.1); CREATININE FOR GFR 1.38 MG/DL (0.70-1.30); FREE T4 1.43 NG/DL (0.76-1.46); GLOMERULAR FILTRATION RATE 58.1 (>56); MAGNESIUM LEVEL 2.6 MG/DL (1.8-2.4); POTASSIUM SERUM 3.9 MEQ/L (3.5-5.1)
[2017-05-08] MEDS ORDERED: NS 1,000 ML IV ONE (19:00)
--- NOTE | 2017-05-08 19:09 | REP ---
PA AND LATERAL CHEST, 05/08/2017. Comparison: 03/12/2017, PA chest. Clinical history: Near-syncope. Findings: Two-views show lung horner well inflated and without infiltrate, effusion, atelectasis or mass. The heart, mediastinal and hilar contours are normal. Airway is intact. Bones show no acute finding. No free air. Impression: 1. No acute cardiopulmonary disease. Signed by Randal Weller MD 05/08/2017 08:50 P
[2017-05-08] MEDS ORDERED: ZOFR4TAB3 PO (21:40)
[2017-05-08 22:08] VITALS: BP 116/78
--- NOTE | 2017-05-09 06:05 | ECGEPIP ---
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
== END 2017-05-08 22:10 | disposition home or self-care (01) ==
LOC: M ED 20:53
DX: I95.1 Orthostatic hypotension (principal); E11.9 Type 2 diabetes mellitus without complications; F41.9 Anxiety disorder, unspecified; F32.9 Major depressive disorder, single episode, unspecified; Z89.429 Acquired absence of other toe(s), unspecified side; F17.200 Nicotine dependence, unspecified, uncomplicated; Z79.82 Long term (current) use of aspirin; Z79.4 Long term (current) use of insulin; Z79.899 Other long term (current) drug therapy

== ENCOUNTER 2019-02-09 09:53 | Inpatient (IN) | payer MEDICAID, OTHER ==
[~2019-02-09] VITALS: Ht 180.3 cm; Wt 87.3 kg
[~2019-02-09 09:53] MED LIST changes: -GABA-283 PO; +GABA-845 PO; -GABA800T PO; +GABA800T4 PO; -VITA1CAP40 PO; +VITA50005 PO; +ZOFR4TAB14 PO; -ZOFR4TAB3 PO
[2019-02-09] MEDS ORDERED: ZOLP5TAB PO (10:08)
[2019-02-09] MEDS ORDERED: LORA0.5T11 PO (10:08)
[2019-02-09] MEDS ORDERED: ESCI10TA2 PO (10:08)
[2019-02-09] MEDS ORDERED: NS 1,000 ML IV ONE (10:45)
[2019-02-09 11:02] LABS: VENOUS BASE EXCESS 1.3 (-2.0-2.0); VENOUS HCO3 28.4 MEQ/L (23.0-27.0); VENOUS O2 SATURATION 41.5 % (60.0-80.0); VENOUS PARTIAL PRESSURE CO2 53.4 mmHg (38.0-50.0); VENOUS PARTIAL PRESSURE O2 22.7 mmHg (30.0-50.0); VENOUS PH 7.343 UNITS (7.330-7.430)
[2019-02-09 11:09] LABS: HEMATOCRIT 45.1 % (42.0-52.0); HEMOGLOBIN 15.7 g/dl (13.5-17.5); MEAN CORPUSCULAR HEMOGLOBIN 29.1 pg (27.0-33.0); MEAN CORPUSCULAR HGB CONC 34.8 g/dl (32.0-36.5); MEAN CORPUSCULAR VOLUME 83.7 fl (80.0-96.0); PLATELET COUNT, AUTOMATED 277 10^3/uL (150-450); RED BLOOD COUNT 5.39 10^6/uL (4.30-6.10); WHITE BLOOD COUNT 20.3 10^3/uL (4.0-10.0)
[2019-02-09] MEDS ORDERED: ONDANSETRON 4MG/2ML VIAL (J2405) IV ONE (11:30)
[2019-02-09 11:41] LABS: ERYTHROCYTE SEDIMENTATION RATE 51 mm/hr (0-20)
[2019-02-09 11:42] LABS: ALBUMIN 3.4 GM/DL (3.2-5.2); ALT/SGPT 15 U/L (12-78); BILIRUBIN,DIRECT 0.4 MG/DL (0.0-0.2); BILIRUBIN,TOTAL 1.3 MG/DL (0.2-1.0); BLOOD UREA NITROGEN 24 MG/DL (7-18); CALCIUM LEVEL 9.5 MG/DL (8.5-10.1); CARBON DIOXIDE LEVEL 28 MEQ/L (21-32); CHLORIDE LEVEL 94 MEQ/L (98-107); CK-MB VALUE MASS < 1.0 NG/ML (<3.6); CPK CREATINE PHOSPHOKINASE 59 U/L (39-308); CREATININE FOR GFR 1.33 MG/DL (0.70-1.30); GLOMERULAR FILTRATION RATE > 60.0 (>56); GLUCOSE, FASTING 292 MG/DL (70-100); LIPASE 36 U/L (73-393); MAGNESIUM LEVEL 1.8 MG/DL (1.8-2.4); MB/CK RELATIVE INDEX 1.69 (< OR =4); POTASSIUM SERUM 4.2 MEQ/L (3.5-5.1); SODIUM LEVEL 131 MEQ/L (136-145); TOTAL PROTEIN 7.3 GM/DL (6.4-8.2); TROPONIN I < 0.02 NG/ML (< 0.10)
[2019-02-09 12:14] LABS: INFLUENZA A AMPLIFICATION NEGATIVE (NEGATIVE); INFLUENZA B AMPLIFICATION NEGATIVE (NEGATIVE)
[2019-02-09] MEDS ORDERED: PIPERACILLIN/TAZOBACTAM SOD 3.375 GM in D5W MINI-BAG PLUS 50 ML IV ONE (13:30)
[2019-02-09] MEDS ORDERED: VANCOMYCIN HCL 1,000 MG in IV FLUID PLACE HOLDER 1 EA IV ONE (13:30)
[2019-02-09] MEDS ORDERED: VANCOMYCIN HCL 1,000 MG, VIAL MATE ADAPTER 1 EACH in D5W 250 ML IV SCH (13:45)
[2019-02-09] MEDS ORDERED: ACETAMINOPHEN TAB 650MG DOSE (2X325MG) PO ONE (13:45)
[2019-02-09] MEDS ORDERED: VANCOMYCIN HCL 1,000 MG, VIAL MATE ADAPTER 1 EACH in D5W 250 ML IV ONE ×2 (14:30→16:00)
[2019-02-09] MEDS ORDERED: BACI50OI TOP (14:38)
[2019-02-09] MEDS ORDERED: GABA-845 PO (14:40)
[2019-02-09] MEDS ORDERED: PROHANCE 279.3MG/ML 15ML VIAL (A9576) As Ordered ONE (15:26)
[2019-02-09] MEDS ORDERED: PROHANCE 279.3MG/ML 5ML VIAL (A9576) As Ordered ONE (15:26)
--- NOTE | 2019-02-09 15:57 | REP ---
Foot series: Four views. History: Nonhealing wound. No comparison left foot imaging. Findings: The patient is status post amputation of the great toe at the MTP joint. The left second toe has been amputated at the level of the distal second metatarsal. There is dorsal and lateral dislocation of the third MTP joint. There is soft tissue swelling, soft tissue irregularity, and soft tissue gas in the forefoot soft tissues about the first, second, and third distal metatarsals. No definite acute bony erosive changes seen. The heart to tiny bone density fragments in the soft tissues of the forefoot. Vascular calcification is also noted at the ankle and midfoot level. Impression: Status post amputation first and second digits. A dorsal dislocation third digit MTP joint. Soft tissue gas and swelling. No acute erosive change. Electronically Signed by Andrea Olivera MD 02/09/2019 03:47 P
[2019-02-09] MEDS: NS 1,000 ML IV SCH ×2 (17:01→22:14)
--- NOTE | 2019-02-09 17:19 | REP ---
MRI left foot without and with intravenous gadolinium: History: Rule out osteomyelitis. Comparison is made with today's radiographs. Gadolinium enhancement dose: 18 ml of intravenous ProHance. Axial and coronal and sagittal imaging planes utilized. There is some motion artifact. MRI findings: The patient is status post amputation of the first two digits as described in the radiographs. Dorsal dislocation is confirmed at the 3rd MTP joint. Cortical and medullary bone signal intensity are normal in forefoot bones. No abnormal signal intensity is seen in the midfoot bones. There is mild diffuse soft tissue swelling in the volar and dorsal soft tissues. There is fluid collecting in the forefoot centered around the distal end of the third and to a lesser extent second metatarsals. Fluid collection extends around the proximal phalanx of the third digit as well. Postcontrast images demonstrate contrast enhancement surrounding this. The largest component of this collection measures 2.0 cm medial to lateral by 0.8 cm dorsal to volar by 0.3 cm proximal to distal. This could be a fairly large third MTP joint effusion versus soft tissue abscess versus tenosynovitis. There is some tendon sheath fluid around the more proximal flexor digitorum tendon and midfoot level. No other soft tissue fluid collection is appreciated. Impression: Signal intensity is normal in the remaining bony structures and there is no MR evidence of osteomyelitis. There is however a fluid collection around a dorsally dislocated third MTP joint and I cannot exclude a infected fluid collection in this location. Septic arthritis versus tenosynovitis, versus soft tissue abscess. Electronically Signed by Andrea Olivera MD 02/10/2019 08:08 A
[2019-02-09 17:20] VITALS: BP 128/69
[2019-02-09] MEDS: METOCLOPRAMIDE 5 MG TAB PO SCH (17:40)
--- NOTE | 2019-02-09 17:41 | HPE ---
DATE OF ADMISSION: 02/09/2019 53-year-old male with a past medical history of diabetes, anxiety disorder, history of diabetic foot ulcers in his left foot, history of peripheral vascular disease status post left great toe and second toe amputations, who presented to the emergency room with three weeks of nausea and vomiting. He said the nausea and vomiting is intermittent in nature and has no predilection towards meals. No associated diarrhea or subjective feeling of fever, aches or chills. When he came to the emergency room, he was given IV Zofran and fluids. He also noted that he does have a nonhealing ulcer in the plantar region of his left foot and purulent discharge was expressed and it was foul smelling. The patient was started on IV Zosyn and vancomycin. He will be admitted for further management. PAST MEDICAL HISTORY: Again, past medical history of: 1. Diabetes. 2. Anxiety disorder. 3. Depression. 4. History of diabetic gastroparesis. 5. History of peripheral vascular disease status post left great toe and second toe amputation. ALLERGIES: He has no known drug allergies. FAMILY HISTORY: Noncontributory. SOCIAL HISTORY: The patient used to be a heavy smoker and quit approximately 3 years ago. Denies alcohol or illicit drugs. MEDICATIONS: He takes at home: - aspirin 81 mg by mouth daily - citalopram 10 mg by mouth daily - insulin glargine 45 units subcutaneously at night - insulin Lispro sliding scale - gabapentin 400 mg by mouth twice a day - cholecalciferol 50,000 units by mouth weekly REVIEW OF SYSTEMS: Negative for all ten major systems except what is mentioned in the history of present illness. PHYSICAL EXAMINATION: VITAL SIGNS: Blood pressure 142/85, heart rate is 111 and regular, respiratory rate 18, temperature is 97.4, oxygen saturation 96% on room air. Head is atraumatic, normocephalic. Neck is supple with no jugular venous distention (JVD). Lungs clear to auscultation. S1, S2 audible. No murmurs appreciated. Abdomen is soft. Positive bowel sounds. No pedal edema. Left foot is noted with purulent discharge and lateral ulcer that is on the plantar side of his left foot. The other two ulcers are dry and clean. Neurologic examination, the patient is awake, alert and oriented times three. LABORATORIES: WBC 20.3, hemoglobin 15.7, hematocrit 45.1, platelets are 277,000. Sodium 131, potassium 4.2, chloride 94, CO2 is 28, BUN is 24, creatinine 1.33. Lactic acid is 3, glucose is 292, troponin is less than 0.02, lipase 36. Influenza A and B are negative. X-ray of the left foot shows no evidence of osteomyelitis. IMPRESSION: 1. Infected diabetic foot ulcer. 2. Gastroparesis. PLAN: The patient is to be admitted to the medical/surgical floor. His gastroparesis has not been treated at this time. I am going to start him in Reglan and Zofran IV and we will give him feeds as tolerated. I will give him some gentle hydration with IV fluids. As far as the diabetic foot ulcer is concerned, we will get Dr. Ryan to see the patient. I will continue the patient on IV Zosyn and vancomycin and cultures have already been sent out from the discharge. We will continue his preadmission medications and continue his care on the medical/surgical floor.
[2019-02-09] MEDS ORDERED: GENTAMICIN SULF INJ 80MG/2ML VIAL (J1580) As Ordered ONE ×2 (18:36→18:56)
[2019-02-09] MEDS ORDERED: LIDOCAINE 2% MDV 20 ML VIAL As Ordered ONE (18:36)
[2019-02-09] MEDS ORDERED: BUPIVACAINE HCL 0.5% 10 ML VIAL As Ordered ONE (18:36)
--- NOTE | 2019-02-09 18:42 | IPN ---
DATE: 02/09/2019 at 6:12 p.m. CHIEF COMPLAINT: A 53-year-old male seen for evaluation of abscess, swelling, and infection in his left foot. Patient states that he has had this ulcer since November. He stated that for the last few days he has noticed some drainage, and this has caused him to present to the emergency room. Patient was taking care of the ulcer himself. He has a history of a hallux and 2nd toe amputation in the past. He states that he has not been eating, and has not had a bowel movement in a week. He feels dizzy and lightheaded and fevers or chills, and he was subsequently admitted for an infected diabetic foot ulcer. PAST MEDICAL HISTORY: 1. Diabetes mellitus. 2. Anxiety disorder. 3. Depression. 4. Diabetic gastroparesis. ALLERGIES: Patient has no known allergies. HOME MEDICATIONS: - aspirin 81 mg - citalopram 10 mg daily - insulin 45 units subcutaneous at night - gabapentin 400 mg twice a day - colecalciferol 50,000 units weekly Evaluation of the patient's foot reveals the dorsalis pedis and posterior tibial pulses are palpable. There is an ulceration on the plantar surface of the foot, which measures 2 mm x 5 mm; however, it is 3.5 cm in depth. It is leaking a yellow to grayish-colored purulent discharge. Laboratory studies were reviewed, revealing a white count of 20.3, ESR 51, C-reactive protein of 25.2. GFR is greater than 60. MRI was reviewed. Reveals no signs of osteomyelitis; however, there is an abscess under the 3rd toe measuring 2 cm x 8.4 cm. ASSESSMENT: Abscess formation, submetatarsal 3, left foot. PLAN: Patient has been nothing by mouth today. He has only taken a sip of water for his medication. Informed consent was obtained and signed by the patient for incision and drainage of abscess, left foot, with possible delayed primary closure. His questions were answered.
[2019-02-09] MEDS ORDERED: PROPOFOL 200 MG/20 ML VIAL As Ordered ONE ×2 (18:55→19:34)
[2019-02-09] MEDS ORDERED: MIDAZOLAM INJ 2 MG/2 ML VIAL (J2250) As Ordered ONE (18:56)
[2019-02-09] MEDS ORDERED: fentaNYL 100 MCG/2 ML INJECTION (J3010) As Ordered ONE (18:56)
[2019-02-09] MEDS ORDERED: VANCOMYCIN HCL 750 MG, VIAL MATE ADAPTER 1 EACH in D5W 250 ML IV ONE (19:00)
[2019-02-09] MEDS ORDERED: VANCOMYCIN 1000 MG/20 ML VIAL (J3370) As Ordered ONE (19:04)
[2019-02-09] MEDS ORDERED: GLUCAGON FOR INJ 1 MG VIAL (J1610) SC PRN (19:15)
[2019-02-09] MEDS ORDERED: DEXTROSE 50% 50 ML SYRINGE IV PRN (19:15)
[2019-02-09] MEDS ORDERED: GLUCOSE 4 GM CHEW TABLET PO PRN (19:15)
[2019-02-09] MEDS ORDERED: ONDANSETRON 4MG/2ML VIAL (J2405) As Ordered ONE (19:59)
[2019-02-09] MEDS ORDERED: KETOROLAC 60 MG/2 ML VIAL (J1885) As Ordered ONE (19:59)
[2019-02-09] MEDS ORDERED: LR 1,000 ML IV SCH (20:15)
[2019-02-09] MEDS ORDERED: ONDANSETRON 4MG/2ML VIAL (J2405) IV PRN (20:15)
[2019-02-09] MEDS ORDERED: fentaNYL 100 MCG/2 ML INJECTION (J3010) IV PRN (20:15)
[2019-02-09] MEDS ORDERED: PERCOCET 5MG/325MG TAB PO PRN (20:15)
[2019-02-09 20:45] VITALS: BP 130/82
[2019-02-09] MEDS: HumaLOG INSULIN (NovoLOG) PER UNIT SC SCH (21:00)
[2019-02-09 21:15] VITALS: BP 110/70
[2019-02-09 21:45] VITALS: BP 101/58
[2019-02-09] MEDS: LEVEMIR (INSULIN DETEMIR) 1 UNITS/0.01ML SC SCH (22:14)
[2019-02-09] MEDS: ASPIRIN 81 MG ENTERIC TAB PO SCH (22:14)
[2019-02-09] MEDS: PIPERACILLIN/TAZOBACTAM SOD 3.375 GM in D5W MINI-BAG PLUS 50 ML IV SCH (22:17)
[2019-02-09 22:45] VITALS: BP 110/66
[2019-02-09 23:45] VITALS: BP 118/72
[2019-02-10 00:45] VITALS: BP 123/68
[2019-02-10] MEDS: VANCOMYCIN HCL 750 MG, VIAL MATE ADAPTER 1 EACH in D5W 250 ML IV SCH ×2 (01:19→12:31)
[2019-02-10] MEDS: METOCLOPRAMIDE 5 MG TAB PO SCH ×4 (01:19→17:34)
[2019-02-10 02:00] VITALS: BP 148/80
[2019-02-10] MEDS: ONDANSETRON 4MG/2ML VIAL (J2405) IV PRN ×3 (02:14→15:35)
[2019-02-10] MEDS: NORCO, ANEXSIA 5/325MG TABLET (HYDROcodone/ACETAMINOPHEN) PO PRN ×3 (02:44→15:36)
[2019-02-10] MEDS: PIPERACILLIN/TAZOBACTAM SOD 3.375 GM in D5W MINI-BAG PLUS 50 ML IV SCH ×4 (02:48→20:21)
[2019-02-10] MEDS: VANCOMYCIN HCL 500 MG in D5W MINI-BAG PLUS 100 ML IV SCH ×2 (03:51→13:48)
[2019-02-10 06:00] VITALS: BP 126/78
[2019-02-10] MEDS: NS 1,000 ML IV SCH (06:04)
[2019-02-10 06:54] LABS: BASO % 0.3 % (0.0-1.0); EOS # 0.1 10^3/uL (0.0-0.50); EOS % 0.4 % (0.0-3.0); HEMATOCRIT 39.3 % (42.0-52.0); HEMOGLOBIN 13.4 g/dl (13.5-17.5); LYMPH # 0.6 10^3/uL (1.5-4.5); LYMPH % 4.9 % (24.0-44.0); MEAN CORPUSCULAR HEMOGLOBIN 29.5 pg (27.0-33.0); MEAN CORPUSCULAR HGB CONC 34.1 g/dl (32.0-36.5); MEAN CORPUSCULAR VOLUME 86.6 fl (80.0-96.0); MONO # 0.9 10^3/uL (0.0-0.8); MONO % 7.3 % (0.0-5.0); NEUTROPHILS # 10.2 10^3/uL (1.8-7.7); NEUTROPHILS % 86.4 % (36.0-66.0); PLATELET COUNT, AUTOMATED 218 10^3/uL (150-450); RED BLOOD COUNT 4.54 10^6/uL (4.30-6.10); WHITE BLOOD COUNT 11.8 10^3/uL (4.0-10.0)
[2019-02-10 07:20] LABS: BLOOD UREA NITROGEN 21 MG/DL (7-18); CALCIUM LEVEL 8.6 MG/DL (8.5-10.1); CARBON DIOXIDE LEVEL 29 MEQ/L (21-32); CHLORIDE LEVEL 101 MEQ/L (98-107); CREATININE FOR GFR 0.98 MG/DL (0.70-1.30); GLOMERULAR FILTRATION RATE > 60.0 (>56); GLUCOSE, FASTING 178 MG/DL (70-100); POTASSIUM SERUM 3.6 MEQ/L (3.5-5.1); SODIUM LEVEL 135 MEQ/L (136-145)
[2019-02-10] MEDS: HumaLOG INSULIN (NovoLOG) PER UNIT SC SCH ×4 (08:14→21:00)
[2019-02-10] MEDS: ENOXAPARIN 40 MG/0.4 ML SYRINGE (J1650) SC SCH (08:15)
[2019-02-10] MEDS: ESCITALOPRAM OXALATE 5MG TABLET (LEXAPRO) PO SCH (08:15)
[2019-02-10] MEDS: BACITRACIN OINT 30GM TOP SCH (08:15)
[2019-02-10 10:00] VITALS: BP 110/63
--- NOTE | 2019-02-10 10:13 | ECGEPIP ---
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
--- NOTE | 2019-02-10 13:45 | RO ---
DATE OF PROCEDURE: 02/09/2019 PREPROCEDURE DIAGNOSIS: Abscess plantar surface left foot. POSTPROCEDURE DIAGNOSIS: Deep and superficial abscess left foot with dorsal abscess left foot. PROCEDURE: Incision and drainage of flexor tendon, deep and dorsal abscess left foot. SURGEON: Jay Ryan DPM SWITCH CLEANER: None. ANESTHESIA: Local MAC HEMOSTASIS: None. ESTIMATED BLOOD LOSS: 20 mL. IRRIGATION: Dilute gentamicin solution with a low pressure pulse lavage system. DRAINS UTILIZED: 1/4 inch Iodoform gauze. DESCRIPTION OF PROCEDURE: On 02/09/2019, this 53-year-old male was taken from his hospital room to the operating room and placed on the operating room table in a supine position. Following the induction of IV sedation, local and regional anesthesia, the left foot was prepped and draped in the usual aseptic manner. Attention was directed to the patient's plantar surface of the foot where there was an ulceration noted to be 3 mm x 5 mm x 3.5 cm in depth on the plantar surface of the foot. Utilizing a sterile scalpel, the surrounding hyperkeratotic tissue and necrotic tissue was debrided. Utilizing a hemostat, the skin and ulcer was probed. There was a large ulcer that went down to the third metatarsal and then drifted in a medial direction to the dorsal surface of the foot. A small stab incision was placed where this wound channel ended on the dorsal surface of the foot and approximately 1 mL of purulent material was expressed from this dorsal abscess. Approximately 2-3 mL of purulent material was expressed from the plantar ulcer. The ulcer extended 5 cm proximal, therefore, the skin incision was carried down in a proximal direction 5 cm, completely evacuating that chamber. The abscess followed the course of the short and long flexor tendons of the third toe. The ulcer did extend in a distal direction as well 2 cm and this was opened and fully explored, exposing the third metatarsal phalangeal joint capsule. The ulcer did extend down to the plantar surface of the third metatarsal, however, this third metatarsal cartilage and bone was intact with no signs of osteomyelitis. Complete depth of the ulcer from dorsal to plantar was 4 cm. There was an ulceration noted submetatarsal one measuring 7 mm x 18 mm. This displayed no purulence. Utilizing 3 liters of dilute gentamicin solution with a low pressure pulse lavage system, the entire wound was pulse irrigated. Any bleeders as encountered were electrocoagulated. 1/4 inch Iodoform gauze was placed in the dorsal abscess as well as the plantar abscess and the wound was closed with 4x4s, ABD pads and light 4 inch Loi wrap. The patient having apparently tolerated the surgical procedure well was taken from the OR to the recovery room for further monitoring by the anesthesia department. He will continue on his antibiotics until his culture becomes available where it can be fine tuned for proper coverage. His questions were answered. BENEDICT
[2019-02-10 14:00] VITALS: BP 139/88
--- NOTE | 2019-02-10 17:16 | CR ---
DATE OF CONSULTATION: 02/10/2019 This gentleman is a 53-year-old male with a past medical history of diabetes, anxiety disorder, history of diabetic foot ulcer in his left foot, history of peripheral vascular disease, status post left great toe and 2nd toe amputations. This patient was referred to pain management for chronic pain. Patient says he has been a diabetic since 1999 and has suffered from chronic aches and pains along the lower back, upper shoulders, and both legs. He is currently being treated with Foster whilst an inpatient, which is providing some relief. CURRENT MEDICATIONS: Include: - aspirin 81 mg - citalopram - gabapentin - He currently takes insulin 45 units subcutaneous On examination today, this patient appears well and not in any distress. He has a very large area of erythema on his entire back. It appears almost as a healing second-degree burn. His vital signs are stable, and his left foot is currently bandaged status post incision and drainage. I would like to suggest to treat this patient's chronic pain, given that he has been a diabetic for so many years, that a trial of Lyrica 25 mg one tablet twice a day to start as a suggestion. I did inform the patient that he will need to discuss with his primary care doctor to manage and monitor his medication. And, this may involve titrating the dosage to ensure he achieves adequate pain relief. I would also like to suggest restarting his Gabapentin. I would suggest starting at 100 mg to be given three times a day in the first week. Second week, to increase the gabapentin to 300 mg three times a week. Please feel free to contact me for further information. MTDD
--- NOTE | 2019-02-10 19:37 | IPN ---
DATE: 02/10/2019 Patient seen and examined. Admitted yesterday. Reported diffuse body ache that has been chronic, relieved with heat. Reported left foot status post incision and drainage of the abscess and packing. Reported left foot pain. Denies fevers, chills, chest pain, pressure, or discomfort. VITAL SIGNS: Temperature 97.1, pulse 86, respirations 17, blood pressure 139/88, pulse oximetry 99% on room air. LABORATORY DATA: WBC 11.8, hemoglobin and hematocrit 13.4/39.3, platelets 218. Chemistry: Sodium 135, potassium 3.6, chloride 101, bicarbonate 29, BUN 21, creatinine 0.98, lactic acid 1.1. PHYSICAL EXAMINATION: GENERAL: Patient alert, comfortable in no acute distress. HEENT: Normocephalic, atraumatic. PULMONARY: Bilaterally clear. CARDIAC: Regular, S1, S2. ABDOMEN: Soft, obese, nontender. Positive bowel sounds. EXTREMITIES: Right lower extremity dorsalis pedis (DP)/posterior tibialis (PT) pulses intact. Left lower extremity foot with plantar aspect status post incision with packing in place and part of the packing was sticking out from the dorsal aspect as well with 1st metatarsal stage I ulcer. DP/PT pulses intact. ASSESSMENT AND PLAN: This is a 53-year-old gentleman with underlying medical history of chronic pain, neuropathy with neuropathic pain, diabetes mellitus, type 2, anxiety disorder, depression, diabetic gastroparesis, peripheral vascular disease with left great toe and 2nd toe amputation, admitted with worsening left foot infection and abscess of the 3rd metatarsal on the left foot. 1. Left foot abscess and cellulitis status post incision and drainage, currently with packing as per Dr. Ryan. No evidence of osteomyelitis. Lactic acidosis resolved. Further wound care as per Dr. Ryan. Vancomycin and Zosyn pending cultures. Intravenous (IV) fluids initially given. 2. Sepsis on admission. Patient with tachycardia, lactic acidosis, and leukocytosis with mild elevation of creatinine. Lactic acidosis resolved with IV fluids, likely from diabetic foot ulcer, abscess, and cellulitis. Treatment as above. 3. Diabetes mellitus. Holding oral medication. Basal bolus insulin. Adjust as needed. Followup fingersticks. 4. Anxiety and depression. Continue home medication. Outpatient followup. 5. Peripheral vascular disease with left great toe and 2nd toe amputation. Further management as per Dr. Shelby. Continue aspirin. 6. Diabetic neuropathy. Continue Neurontin. 7. Diabetic gastroparesis. Continue Reglan. 8. Diabetic neuropathy. Continue Neurontin and Lyrica. 9. Deep vein thrombosis (DVT) prophylaxis. Lovenox subcutaneous. DISPOSITION: Pending cultures. Further management of wound care as per Dr. Ryan. Will followup C-reactive protein.
[2019-02-10] MEDS: ASPIRIN 81 MG ENTERIC TAB PO SCH (20:22)
[2019-02-10] MEDS: PREGABALIN 25 MG CAP (LYRICA) PO SCH (20:22)
[2019-02-10] MEDS: GABAPENTIN 100 MG CAP PO SCH (20:22)
[2019-02-10] MEDS: LEVEMIR (INSULIN DETEMIR) 1 UNITS/0.01ML SC SCH (20:24)
[2019-02-10 22:00] VITALS: BP 127/82
[2019-02-11] MEDS: METOCLOPRAMIDE 5 MG TAB PO SCH ×4 (00:45→17:32)
[2019-02-11] MEDS: VANCOMYCIN HCL 750 MG, VIAL MATE ADAPTER 1 EACH in D5W 250 ML IV SCH ×2 (00:47→13:30)
[2019-02-11] MEDS: NORCO, ANEXSIA 5/325MG TABLET (HYDROcodone/ACETAMINOPHEN) PO PRN ×2 (00:52→20:48)
[2019-02-11] MEDS ORDERED: PROMETHAZINE INJ 25 MG/ML VIAL (J2550) IV ONE (01:45)
[2019-02-11] MEDS: PIPERACILLIN/TAZOBACTAM SOD 3.375 GM in D5W MINI-BAG PLUS 50 ML IV SCH ×3 (01:57→18:31)
[2019-02-11] MEDS: VANCOMYCIN HCL 500 MG in D5W MINI-BAG PLUS 100 ML IV SCH ×2 (03:13→15:19)
[2019-02-11 06:00] VITALS: BP 158/92
[2019-02-11 06:09] LABS: HEMATOCRIT 37.3 % (42.0-52.0); HEMOGLOBIN 12.8 g/dl (13.5-17.5); MEAN CORPUSCULAR HEMOGLOBIN 28.7 pg (27.0-33.0); MEAN CORPUSCULAR HGB CONC 34.3 g/dl (32.0-36.5); MEAN CORPUSCULAR VOLUME 83.6 fl (80.0-96.0); PLATELET COUNT, AUTOMATED 238 10^3/uL (150-450); RED BLOOD COUNT 4.46 10^6/uL (4.30-6.10); WHITE BLOOD COUNT 7.6 10^3/uL (4.0-10.0)
[2019-02-11 06:34] LABS: BLOOD UREA NITROGEN 12 MG/DL (7-18); C REACTIVE PROTEIN QUANTITATIV 9.35 MG/DL (0.00-0.30); CALCIUM LEVEL 8.4 MG/DL (8.5-10.1); CARBON DIOXIDE LEVEL 28 MEQ/L (21-32); CHLORIDE LEVEL 104 MEQ/L (98-107); CREATININE FOR GFR 0.79 MG/DL (0.70-1.30); GLOMERULAR FILTRATION RATE > 60.0 (>56); GLUCOSE, FASTING 132 MG/DL (70-100); MAGNESIUM LEVEL 1.9 MG/DL (1.8-2.4); POTASSIUM SERUM 3.5 MEQ/L (3.5-5.1); RHEUMATOID FACTOR QUANT < 10.0 IU/ML (<15.0); SODIUM LEVEL 141 MEQ/L (136-145)
[2019-02-11] MEDS: HumaLOG INSULIN (NovoLOG) PER UNIT SC SCH ×5 (07:30→20:38)
[2019-02-11] MEDS: ENOXAPARIN 40 MG/0.4 ML SYRINGE (J1650) SC SCH (09:25)
[2019-02-11] MEDS: BACITRACIN OINT 30GM TOP SCH (09:26)
[2019-02-11] MEDS: ESCITALOPRAM OXALATE 5MG TABLET (LEXAPRO) PO SCH (09:27)
[2019-02-11] MEDS: PREGABALIN 25 MG CAP (LYRICA) PO SCH ×2 (09:27→20:24)
[2019-02-11] MEDS: GABAPENTIN 100 MG CAP PO SCH ×3 (09:28→20:24)
[2019-02-11] MEDS: SENNA 8.6 MG TAB (SENOKOT) PO SCH ×2 (09:28→20:24)
[2019-02-11 14:00] VITALS: BP 139/84
--- NOTE | 2019-02-11 14:16 | PHACANCOPD ---
PHARMACY VANCOMYCIN DOSING Pt Demographics Demographics Patient Age:53 , Weight:87.300 , Gender: male Adjusted Body Weight Date: 02/11/19, Adjusted Body Weight: Kg Vancomycin Vancomycin indication: DIABETIC FOOT ULCER Vancomycin Target Ranges: 15-20 mcg/ml Vancomycin Load Y/N: Yes Load Dose Date Time Vancomycin Load Dose: Date: Time: Vancomycin Dose Date: 02/11/19. Current Vancomycin Dose: Labs Micro Microbiology 02/09/19 Blood Culture - Preliminary, Resulted No Growth after 48 hours. All Specime... 02/09/19 Blood Culture - Preliminary, Resulted No Growth after 48 hours. All Specime... 02/09/19 Anaerobic Culture, Received Pending 02/09/19 Gram Stain - Final, Resulted 02/09/19 Abscess Culture, Resulted Pending 02/09/19 Wound Culture - Preliminary, Resulted Staphylococcus Aureus Creatinine Clearance Date:02/11/19. Creatinine Clearance: . Assessment and Plan Maintaining Current Dose?: No Reason for dose change: Trough too low Pharmacist Note Pharmacist Note Date: 02/11/19. Pharmacist note: Day #3 IV vancomycin therapy for the treatment of a diabetic foot ulcer. Vancomycin trough today resulted at 12mcg/ml. Scr is steadily improving at 0.79 today from 1.33 at the start of therapy. We will increase his current regimen from 1250mg IV Q12H to 1500mg IV Q12H. A follow-up vancomycin trough level has been scheduled to be drawn 02/13/19 @1200. We will continue to monitor and make further dose adjustments if needed. SOUMYA MA PHARMACY Feb 11, 2019 14:16
--- NOTE | 2019-02-11 16:15 | IPN ---
DATE: 02/11/2019 TIME: 2:22 p.m. CHIEF COMPLAINT: The patient is seen at bedside today for evaluation of a flexor tendon abscess on the plantar side of his foot, which extended into a dorsal wound infection as well. The patient denies fevers, chills, shortness of breath, or chest pain. He states that he feels considerably better. The bandage was removed today. The packing was removed. There is no additional discharge. Considerable reduction in the swelling is noted of the patient's left foot with reduction of erythema. Laboratory studies were reviewed revealing his white count on admission was 20.3 and now it is 7.6. His C-reactive protein has reduced from 25.2 to 9.35. ASSESSMENT: 1. Considerably improved flexor tendon abscess on the left foot. PLAN: The bandage was removed today and a Drawtex sterile dressing was applied. We will right orders to cleanse the wound with Vashe, followed by Drawtex and a dressing every 8 hours. We discussed with the patient when the culture becomes available to discharge on oral antibiotics and he could be brought back to the operating room at a later date for a delayed primary closure. He was advised that I will be out of town for a week and Dr. Delvalle is covering for me. His questions were answered.
--- NOTE | 2019-02-11 20:11 | IPNPDOC ---
Text Note Date of Service The patient was seen on 02/11/19. NOTE Patient seen and examined. Reported pain improved. Denies fevers, chills, chest pain, pressure, or discomfort. PHYSICAL EXAMINATION: GENERAL: Patient alert, comfortable in no acute distress. HEENT: Normocephalic, atraumatic. PULMONARY: Bilaterally clear. CARDIAC: Regular, S1, S2. ABDOMEN: Soft, obese, nontender. Positive bowel sounds. EXTREMITIES: Right lower extremity dorsalis pedis (DP)/posterior tibialis (PT) pulses intact. Left lower extremity foot with plantar aspect status post incision with packing in place and part of the packing was sticking out from the dorsal aspect as well with 1st metatarsal stage I ulcer. DP/PT pulses intact. ASSESSMENT AND PLAN: This is a 53-year-old gentleman with underlying medical history of chronic pain, neuropathy with neuropathic pain, diabetes mellitus, type 2, anxiety disorder, depression, diabetic gastroparesis, peripheral vascular disease with left great toe and 2nd toe amputation, admitted with worsening left foot infection and abscess of the 3rd metatarsal on the left foot. 1. Left foot abscess and cellulitis status post incision and drainage, wound care as per Dr. Ryan. ID consulted. No evidence of osteomyelitis. Lactic acidosis resolved. Further wound care as per Dr. Ryan. Vancomycin and Zosyn pending cultures. Intravenous (IV) fluids initially given. 2. Sepsis on admission. Patient with tachycardia, lactic acidosis, and leukocytosis with mild elevation of creatinine. Lactic acidosis resolved with IV fluids, likely from diabetic foot ulcer, abscess, and cellulitis. Treatment as above. 3. Diabetes mellitus. Holding oral medication. Basal bolus insulin. Adjust as needed. Followup fingersticks. 4. Anxiety and depression. Continue home medication. Outpatient followup. 5. Peripheral vascular disease with left great toe and 2nd toe amputation. Further management as per Dr. Ryan. Continue aspirin. 6. Diabetic neuropathy. Continue Neurontin. 7. Diabetic gastroparesis. Continue Reglan. 8. Diabetic neuropathy. Continue Neurontin and Lyrica. 9. Deep vein thrombosis (DVT) prophylaxis. Lovenox subcutaneous. DISPOSITION: Pending cultures. Further management of wound care as per Dr. Ryan. Will followup C-reactive protein. ID rec VS,Steven, I+O VS, Fishbone, I+O Laboratory Tests 02/11/19 05:21 Red Blood Count 4.46, Mean Corpuscular Volume 83.6, Mean Corpuscular Hemoglobin 28.7, Mean Corpuscular Hemoglobin Concent 34.3, Red Cell Distribution Width 13.2, Calcium Level 8.4 L Vital Signs Date Time Temp Pulse Resp B/P (MAP) Pulse Ox O2 Delivery O2 Flow Rate FiO2 02/11/19 14:00 97.2 98 20 139/84 (102) 97 02/09/19 09:54 Room Air I&O- Last 24 Hours up to 6 AM 02/11/19 06:00 Intake Total 3029 ml Output Total 1950 ml Balance 1079 ml HEMANTH ROMAN MD Feb 11, 2019 20:11
[2019-02-11] MEDS: ASPIRIN 81 MG ENTERIC TAB PO SCH (20:24)
[2019-02-11] MEDS: LEVEMIR (INSULIN DETEMIR) 1 UNITS/0.01ML SC SCH (20:25)
--- NOTE | 2019-02-11 20:50 | CR ---
DATE OF CONSULTATION: 02/11/2019 REASON FOR CONSULTATION: Asked by Dr. Ryan to see this patient with diabetic foot infection and abscess of the left foot. HISTORY OF PRESENT ILLNESS: Luis M is a 55-year-old gentleman with a history of insulin-dependent diabetes with diabetic foot ulcers, who has recent amputation of the left big toe and 2nd toe over the past year done in the [facility]. This was done in three different surgeries. He has had a open ulcer on the dorsal aspect of the foot since November of this year, for which [facility] had [facility]. He also went about a month ago to the [facility] in [place], had an x-ray, and was discharged home with pain medications for 2 days. He was not given any antibiotics. The patient also was having increasing nausea and vomiting. Generalized body aches that he cannot clearly describe all over his body, for which he was taking hot showers. He was also using a blow dryer on his back after the hot shower to relieve his pain. The patient was started on intravenous (IV) Zosyn and vancomycin on admission. He was seen in consultation by Dr. Ryan. MRI was done, which showed a deep abscess, and he was taken to the operating room for debridement of the abscess overlying right metatarsal. There was a question of a septic joint versus tenosynovitis. PAST MEDICAL HISTORY: Significant for: 1. Insulin-dependent diabetes with diabetic neuropathy. 2. Multiple diabetic foot ulcers. 3. Anxiety disorder and depression. 4. Diabetic gastroparesis. 5. Peripheral vascular disease. PAST SURGICAL HISTORY: Left great toe and 2nd toe amputation for osteomyelitis. ALLERGIES: No known drug allergies. FAMILY HISTORY: Nonrevealing. SOCIAL HISTORY: He was never . He does not have children. 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 He is a heavy smoker but quit smoking about two months ago. He smokes just a pack or two or a day with a patch. Denies alcohol or illicit drug use. MEDICATIONS: - aspirin 81 mg daily - citalopram 10 mg daily - insulin glargine 45 units subcutaneous at night and sliding scale - gabapentin 400 mg twice a day - vitamin D 50,000 units weekly MEDICATIONS IN THE HOSPITAL: - vancomycin 1.5 gram IV every 12 hours - Senokot one tablet by mouth twice a day - Lyrica 25 mg by mouth twice a day - gabapentin 100 mg by mouth three times a day - Lexapro 5 mg by mouth daily - Lovenox 40 mg subcutaneous daily - Vicodin two tablets by mouth every 4 as needed - aspirin 81 mg by mouth at bedtime - Zosyn 3.375 grams IV every 6 hours LABORATORY DATA: White count was 20.3 on admission, February 09, and 7.6 today. Hemoglobin 12.8, hematocrit 37.3, platelets 238. Sodium 141, potassium 3.5, chloride 104, bicarbonate 28, BUN 12, creatinine 0.79, glucose 132, calcium 8.4, magnesium 1.9, CRP 9.35, down from 25.2. Blood cultures, two sets, ordered on February 09 were negative. Wound culture had Staphylococcus aureus. Susceptibilities pending. Intraoperative culture from February 09 is pending aerobically and anaerobically, but Gram stain showed many gram-negative rods, many gram-negative coccobacilli, few gram-positive cocci in pairs. Foot MRI showed a fluid collection around dorsi dislocated 3rd metatarsophalangeal (MTP) joint, possibly septic arthritis versus in tenosynovitis, versus soft tissue abscess. PHYSICAL EXAMINATION: Temperature is 97.2, pulse 98, respirations 20, blood pressure 139/84, oxygen saturation 97% on room air. HEART: Normal S1, S2. No murmur, rub, or gallop. LUNGS: Clear. No wheezes, rales, or rhonchi. ABDOMEN: Soft, nontender. No hepatosplenomegaly. BACK: No costovertebral angle (CVA) tenderness. He has lumbosacral tenderness. EXTREMITIES: No clubbing or cyanosis. He has trace edema, left foot. He has an open incision measuring about 7 cm x 3 cm. There is good granulation tissue. No purulent discharge. There is an absent 1st and 2nd toe. On the dorsal aspect of the first MTP there is another ulcer that measures 2 x 3 cm that is clean with granulation tissue. Dorsalis pedis pulses are +1, and posterior tibialis pulses as well. SKIN: Has erythema and hyperpigmentation of the back with blanching erythema. This is erythema ab igne from blow dryer heat. IMPRESSION: This is a 53-year-old gentleman who was admitted with abscess of the left foot from a diabetic foot ulcer, status post incision and drainage. Culture so far has grown Staphylococcus aureus. Blood cultures have been negative. Gram stain is suggestive of polymicrobial eloisa from the operating room (OR). The patient also has diabetic gastroparesis, and he has been treated with metoclopramide 5 mg by mouth every 5 hours with improvement.. PLAN: Continue for the time being vancomycin and Zosyn until results of intraoperative cultures are available. Gram stain may suggest polymicrobial eloisa. Continue IV vancomycin until Staphylococcus aureus susceptibilities are available. If that is negative, then discontinue vancomycin and continue Zosyn. Further de-escalation will be based on intraoperative culture result. The patient will need at least 2-3 weeks of antibiotics , IV then by mouth, when patient is doing better. He seems to have had a tenosynovitis, and with his previous history of two amputations in that foot, will continue with antibiotics for probably 2-4 weeks until wound is completely healed.
[2019-02-11 22:00] VITALS: BP 150/80
[2019-02-12] MEDS: METOCLOPRAMIDE 5 MG TAB PO SCH ×4 (00:14→17:25)
[2019-02-12] MEDS: PIPERACILLIN/TAZOBACTAM SOD 3.375 GM in D5W MINI-BAG PLUS 50 ML IV SCH ×2 (00:14→06:04)
[2019-02-12] MEDS: VANCOMYCIN HCL 1,000 MG, VIAL MATE ADAPTER 1 EACH in D5W 250 ML IV SCH ×2 (01:42→12:16)
[2019-02-12] MEDS: VANCOMYCIN HCL 500 MG in D5W MINI-BAG PLUS 100 ML IV SCH ×2 (03:15→13:32)
[2019-02-12] MEDS: NORCO, ANEXSIA 5/325MG TABLET (HYDROcodone/ACETAMINOPHEN) PO PRN ×2 (03:22→11:20)
[2019-02-12 06:00] VITALS: BP 150/79
[2019-02-12 06:40] LABS: HEMATOCRIT 38.2 % (42.0-52.0); MEAN CORPUSCULAR HEMOGLOBIN 29.3 pg (27.0-33.0); MEAN CORPUSCULAR VOLUME 86.2 fl (80.0-96.0); PLATELET COUNT, AUTOMATED 236 10^3/uL (150-450); RED BLOOD COUNT 4.43 10^6/uL (4.30-6.10)
[2019-02-12 07:07] LABS: BLOOD UREA NITROGEN 12 MG/DL (7-18); C REACTIVE PROTEIN QUANTITATIV 4.79 MG/DL (0.00-0.30); CALCIUM LEVEL 8.4 MG/DL (8.5-10.1); CARBON DIOXIDE LEVEL 31 MEQ/L (21-32); CHLORIDE LEVEL 101 MEQ/L (98-107); CREATININE FOR GFR 0.86 MG/DL (0.70-1.30); GLOMERULAR FILTRATION RATE > 60.0 (>56); GLUCOSE, FASTING 238 MG/DL (70-100); MAGNESIUM LEVEL 1.8 MG/DL (1.8-2.4); POTASSIUM SERUM 3.5 MEQ/L (3.5-5.1); SODIUM LEVEL 137 MEQ/L (136-145)
[2019-02-12] MEDS: HumaLOG INSULIN (NovoLOG) PER UNIT SC SCH ×4 (08:30→21:00)
[2019-02-12] MEDS: ENOXAPARIN 40 MG/0.4 ML SYRINGE (J1650) SC SCH (08:32)
[2019-02-12] MEDS: ESCITALOPRAM OXALATE 5MG TABLET (LEXAPRO) PO SCH (08:34)
[2019-02-12] MEDS: GABAPENTIN 100 MG CAP PO SCH ×3 (08:34→21:16)
[2019-02-12] MEDS: PREGABALIN 25 MG CAP (LYRICA) PO SCH ×2 (08:36→21:16)
[2019-02-12] MEDS: SENNA 8.6 MG TAB (SENOKOT) PO SCH ×2 (08:36→21:16)
[2019-02-12] MEDS ORDERED: POTASSIUM CHLORIDE 10 MEQ SR TABLET PO ONE (09:00)
[2019-02-12] MEDS ORDERED: MAG SULF 1GM/100ML (MAG RUN) 1 GM in APPROPRIATE DILUENT 1 EA IV ONE (09:00)
[2019-02-12 14:00] VITALS: BP 161/79
[2019-02-12 16:40] LABS: ANTINUCLEAR ANTIBODIES DIRECT Negative (Negative)
[2019-02-12] MEDS: MIRALAX *UNIT DOSE* 17GM PACKET PO SCH ×2 (17:26→21:16)
--- NOTE | 2019-02-12 18:05 | IPNPDOC ---
Text Note Date of Service The patient was seen on 02/12/19. NOTE Patient seen and examined. Reported pain improved. Denies fevers, chills, chest pain, pressure, or discomfort. ambulate with cane PHYSICAL EXAMINATION: GENERAL: Patient alert, comfortable in no acute distress. HEENT: Normocephalic, atraumatic. PULMONARY: Bilaterally clear. CARDIAC: Regular, S1, S2. ABDOMEN: Soft, obese, nontender. Positive bowel sounds. EXTREMITIES: Right lower extremity dorsalis pedis (DP)/posterior tibialis (PT) pulses intact. Left lower extremity foot with plantar aspect status post incision with packing in place and part of the packing was sticking out from the dorsal aspect as well with 1st metatarsal stage I ulcer. DP/PT pulses intact. ASSESSMENT AND PLAN: This is a 53-year-old gentleman with underlying medical history of chronic pain, neuropathy with neuropathic pain, diabetes mellitus, type 2, anxiety disorder, depression, diabetic gastroparesis, peripheral vascular disease with left great toe and 2nd toe amputation, admitted with worsening left foot infection and abscess of the 3rd metatarsal on the left foot. 1. Left foot abscess and cellulitis status post incision and drainage, wound care as per Dr. Ryan. ID consulted. No evidence of osteomyelitis. Lactic acidosis resolved. Further wound care as per Dr. Ryan. cultures appreciated. DC zosyn, c/w Vancomycin. likely DC on PO clindamycin. Intravenous (IV) fluids initially given. ID consulted 2. Sepsis on admission. Patient with tachycardia, lactic acidosis, and leukocytosis with mild elevation of creatinine. Lactic acidosis resolved with IV fluids, likely from diabetic foot ulcer, abscess, and cellulitis. Treatment as above. ID consulted 3. Diabetes mellitus. Holding oral medication. Basal bolus insulin. Adjust as needed. Followup fingersticks. 4. Anxiety and depression. Continue home medication. Outpatient followup. 5. Peripheral vascular disease with left great toe and 2nd toe amputation. Further management as per Dr. Ryan. Continue aspirin. 6. Diabetic neuropathy. Continue Neurontin. 7. Diabetic gastroparesis. Continue Reglan. 8. Diabetic neuropathy. Continue Neurontin and Lyrica. 9. Deep vein thrombosis (DVT) prophylaxis. Lovenox subcutaneous. DISPOSITION: Pending cultures. Further management of wound care as per Dr. Ryan. Will followup C-reactive protein. ID rec. VS,Steven, I+O VS, Siddharthe, I+O Laboratory Tests 02/12/19 06:13 Red Blood Count 4.43, Mean Corpuscular Volume 86.2, Mean Corpuscular Hemoglobin 29.3, Mean Corpuscular Hemoglobin Concent 34.0, Red Cell Distribution Width 13.3, Calcium Level 8.4 L Vital Signs Date Time Temp Pulse Resp B/P (MAP) Pulse Ox O2 Delivery O2 Flow Rate FiO2 02/12/19 14:00 97.9 89 16 161/79 (106) 99 02/09/19 09:54 Room Air I&O- Last 24 Hours up to 6 AM 02/12/19 06:00 Intake Total 2910 ml Output Total 1200 ml Balance 1710 ml HEMANTH ROMAN MD Feb 12, 2019 18:05
[2019-02-12] MEDS: ASPIRIN 81 MG ENTERIC TAB PO SCH (21:16)
[2019-02-12] MEDS: LEVEMIR (INSULIN DETEMIR) 1 UNITS/0.01ML SC SCH (21:16)
[2019-02-12 22:00] VITALS: BP 136/82
[2019-02-13] MEDS: VANCOMYCIN HCL 1,000 MG, VIAL MATE ADAPTER 1 EACH in D5W 250 ML IV SCH (00:35)
[2019-02-13] MEDS: METOCLOPRAMIDE 5 MG TAB PO SCH ×5 (00:35→23:46)
[2019-02-13] MEDS: NORCO, ANEXSIA 5/325MG TABLET (HYDROcodone/ACETAMINOPHEN) PO PRN ×3 (00:41→16:11)
[2019-02-13] MEDS: VANCOMYCIN HCL 500 MG in D5W MINI-BAG PLUS 100 ML IV SCH (02:04)
[2019-02-13 06:00] VITALS: BP 168/80
[2019-02-13 06:41] LABS: MEAN CORPUSCULAR HGB CONC 34.2 g/dl (32.0-36.5); MEAN CORPUSCULAR VOLUME 84.8 fl (80.0-96.0); PLATELET COUNT, AUTOMATED 261 10^3/uL (150-450); RED BLOOD COUNT 4.48 10^6/uL (4.30-6.10); WHITE BLOOD COUNT 7.5 10^3/uL (4.0-10.0)
[2019-02-13 07:12] LABS: BLOOD UREA NITROGEN 13 MG/DL (7-18); C REACTIVE PROTEIN QUANTITATIV 3.32 MG/DL (0.00-0.30); CALCIUM LEVEL 8.6 MG/DL (8.5-10.1); CARBON DIOXIDE LEVEL 30 MEQ/L (21-32); CHLORIDE LEVEL 103 MEQ/L (98-107); GLOMERULAR FILTRATION RATE > 60.0 (>56); GLUCOSE, FASTING 147 MG/DL (70-100); POTASSIUM SERUM 3.4 MEQ/L (3.5-5.1); SODIUM LEVEL 140 MEQ/L (136-145)
[2019-02-13] MEDS: MIRALAX *UNIT DOSE* 17GM PACKET PO SCH ×2 (07:58→20:49)
[2019-02-13] MEDS: PREGABALIN 25 MG CAP (LYRICA) PO SCH ×2 (07:59→20:49)
[2019-02-13] MEDS: ESCITALOPRAM OXALATE 5MG TABLET (LEXAPRO) PO SCH (08:00)
[2019-02-13] MEDS: GABAPENTIN 100 MG CAP PO SCH ×3 (08:00→20:50)
[2019-02-13] MEDS: SENNA 8.6 MG TAB (SENOKOT) PO SCH ×2 (08:01→20:50)
[2019-02-13] MEDS: HumaLOG INSULIN (NovoLOG) PER UNIT SC SCH ×4 (08:02→20:50)
[2019-02-13] MEDS: ENOXAPARIN 40 MG/0.4 ML SYRINGE (J1650) SC SCH (08:03)
[2019-02-13] MEDS ORDERED: POTASSIUM CHLORIDE 10 MEQ SR TABLET PO ONE (09:00)
[2019-02-13] MEDS: cefTRIAXone SOD 2 GM in D5W MINI-BAG PLUS 50 ML IV SCH (10:42)
[2019-02-13] MEDS ORDERED: MAGNESIUM CITRATE 300 ML BTL PO ONE (12:00)
--- NOTE | 2019-02-13 12:44 | PHACANCOPD ---
PHARMACY VANCOMYCIN DOSING Pt Demographics Demographics Patient Age:53 , Weight:87.300 , Gender: male Adjusted Body Weight Date: 02/11/19, Adjusted Body Weight: Kg Vancomycin Vancomycin indication: DIABETIC FOOT ULCER Vancomycin Target Ranges: 15-20 mcg/ml Vancomycin Load Y/N: Yes Load Dose Date Time Vancomycin Load Dose: Date: Time: Vancomycin Dose Date: 02/11/19. Current Vancomycin Dose: Intermittent Dosing?: No Labs Micro Microbiology 02/09/19 Blood Culture - Preliminary, Resulted No Growth after 72 hours. All specime... 02/09/19 Blood Culture - Preliminary, Resulted No Growth after 72 hours. All specime... 02/09/19 Anaerobic Culture, Received Pending 02/09/19 Gram Stain - Final, Complete 02/09/19 Abscess Culture - Final, Complete Proteus Mirabilis Staphylococcus Aureus Streptococcus Anginosus Grp 02/09/19 Wound Culture - Final, Complete Staphylococcus Aureus Staphylococcus Sp Coag Neg Streptococcus Anginosus Grp Creatinine Clearance Date:02/11/19. Creatinine Clearance: . Assessment and Plan Maintaining Current Dose?: Yes Reason for dose change: No Dose Change Pharmacist Note Pharmacist Note 02/13/19: Day #5 IV vancomycin. Trough level today resulted at 14.2mcg/ml. Scr remains stable at 0.8 today from 0.86 yesterday. We will maintain the patient on his current regimen of 1500mg IV Q12H, and draw further trough levels if needed. Date: 02/11/19. Pharmacist note: Day #3 IV vancomycin therapy for the treatment of a diabetic foot ulcer. Vancomycin trough today resulted at 12mcg/ml. Scr is steadily improving at 0.79 today from 1.33 at the start of therapy. We will increase his current regimen from 1250mg IV Q12H to 1500mg IV Q12H. A follow-up vancomycin trough level has been scheduled to be drawn 02/13/19 @1200. We will continue to monitor and make further dose adjustments if needed. SOUMYA MA PHARMACY Feb 13, 2019 12:44
[2019-02-13] MEDS: ONDANSETRON 4MG/2ML VIAL (J2405) IV PRN (13:13)
[2019-02-13 14:00] VITALS: BP 158/102
--- NOTE | 2019-02-13 17:32 | IPNPDOC ---
Text Note Date of Service The patient was seen on 02/13/19. NOTE Patient seen and examined. Reported pain improved. Denies fevers, chills, chest pain, pressure, or discomfort. ambulate with cane, reported constipation PHYSICAL EXAMINATION: GENERAL: Patient alert, comfortable in no acute distress. HEENT: Normocephalic, atraumatic. PULMONARY: Bilaterally clear. CARDIAC: Regular, S1, S2. ABDOMEN: Soft, obese, nontender. Positive bowel sounds. EXTREMITIES: Right lower extremity dorsalis pedis (DP)/posterior tibialis (PT) pulses intact. Left lower extremity foot with plantar aspect status post incision with packing in place and part of the packing was sticking out from the dorsal aspect as well with 1st metatarsal stage I ulcer. DP/PT pulses intact. ASSESSMENT AND PLAN: This is a 53-year-old gentleman with underlying medical history of chronic pain, neuropathy with neuropathic pain, diabetes mellitus, type 2, anxiety disorder, depression, diabetic gastroparesis, peripheral vascular disease with left great toe and 2nd toe amputation, admitted with worsening left foot infection and abscess of the 3rd metatarsal on the left foot. 1. Left foot abscess and cellulitis status post incision and drainage, wound care as per Dr. Ryan. ID consulted. No evidence of osteomyelitis. Lactic acidosis resolved. Further wound care as per Dr. Ryan. cultures appreciated. DC zosyn, c/w rocephin, Vancomycin. Intravenous (IV) fluids initially given. ID consulted, likely Dc with PO antibiotics as outpatient 2. Sepsis on admission. Patient with tachycardia, lactic acidosis, and leukocytosis with mild elevation of creatinine. Lactic acidosis resolved with IV fluids, likely from diabetic foot ulcer, abscess, and cellulitis. Treatment as above. ID consulted 3. Diabetes mellitus. Holding oral medication. Basal bolus insulin. Adjust as needed. Followup fingersticks. 4. Anxiety and depression. Continue home medication. Outpatient followup. 5. Peripheral vascular disease with left great toe and 2nd toe amputation. Further management as per Dr. Ryan. Continue aspirin. 6. Diabetic neuropathy. Continue Neurontin. 7. Diabetic gastroparesis. Continue Reglan. 8. Diabetic neuropathy. Continue Neurontin and Lyrica. 9. constipation, bowel reg 10. Deep vein thrombosis (DVT) prophylaxis. Lovenox subcutaneous. DISPOSITION: Pending cultures. Further management of wound care as per Dr. Ryan. Will followup C-reactive protein. ID rec. VS,Kevinbone, I+O VS, Kevinbone, I+O Laboratory Tests 02/13/19 06:17 Red Blood Count 4.48, Mean Corpuscular Volume 84.8, Mean Corpuscular Hemoglobin 29.0, Mean Corpuscular Hemoglobin Concent 34.2, Red Cell Distribution Width 13.1, Calcium Level 8.6 Vital Signs Date Time Temp Pulse Resp B/P (MAP) Pulse Ox O2 Delivery O2 Flow Rate FiO2 02/13/19 16:41 18 02/13/19 14:00 96.6 92 158/102 (120) 96 02/09/19 09:54 Room Air I&O- Last 24 Hours up to 6 AM 02/13/19 06:00 Intake Total 2160 ml Output Total 800 ml Balance 1360 ml HEMANTH ROMAN MD Feb 13, 2019 17:32
[2019-02-13 18:41] VITALS: BP 144/86
[2019-02-13] MEDS: ASPIRIN 81 MG ENTERIC TAB PO SCH (20:50)
[2019-02-13] MEDS: LEVEMIR (INSULIN DETEMIR) 1 UNITS/0.01ML SC SCH (20:50)
[2019-02-13 22:00] VITALS: BP 132/83
[2019-02-14] MEDS: NORCO, ANEXSIA 5/325MG TABLET (HYDROcodone/ACETAMINOPHEN) PO PRN ×2 (02:41→08:43)
[2019-02-14] MEDS: METOCLOPRAMIDE 5 MG TAB PO SCH ×2 (05:33→12:41)
[2019-02-14 06:00] VITALS: BP 163/78
[2019-02-14 06:34] LABS: HEMATOCRIT 39.7 % (42.0-52.0); HEMOGLOBIN 13.4 g/dl (13.5-17.5); MEAN CORPUSCULAR HEMOGLOBIN 28.9 pg (27.0-33.0); MEAN CORPUSCULAR HGB CONC 33.8 g/dl (32.0-36.5); MEAN CORPUSCULAR VOLUME 85.6 fl (80.0-96.0); PLATELET COUNT, AUTOMATED 298 10^3/uL (150-450); RED BLOOD COUNT 4.64 10^6/uL (4.30-6.10); WHITE BLOOD COUNT 10.4 10^3/uL (4.0-10.0)
[2019-02-14 06:59] LABS: BLOOD UREA NITROGEN 18 MG/DL (7-18); C REACTIVE PROTEIN QUANTITATIV 2.27 MG/DL (0.00-0.30); CARBON DIOXIDE LEVEL 31 MEQ/L (21-32); CHLORIDE LEVEL 102 MEQ/L (98-107); CREATININE FOR GFR 0.94 MG/DL (0.70-1.30); GLOMERULAR FILTRATION RATE > 60.0 (>56); GLUCOSE, FASTING 126 MG/DL (70-100); MAGNESIUM LEVEL 2.3 MG/DL (1.8-2.4); SODIUM LEVEL 138 MEQ/L (136-145)
[2019-02-14] MEDS: MIRALAX *UNIT DOSE* 17GM PACKET PO SCH (08:43)
[2019-02-14] MEDS: PREGABALIN 25 MG CAP (LYRICA) PO SCH (08:43)
[2019-02-14] MEDS: GABAPENTIN 100 MG CAP PO SCH (08:43)
[2019-02-14] MEDS: ESCITALOPRAM OXALATE 5MG TABLET (LEXAPRO) PO SCH (08:43)
[2019-02-14] MEDS: SENNA 8.6 MG TAB (SENOKOT) PO SCH (08:43)
[2019-02-14] MEDS: HumaLOG INSULIN (NovoLOG) PER UNIT SC SCH ×2 (08:44→12:41)
[2019-02-14] MEDS: cefTRIAXone SOD 2 GM in D5W MINI-BAG PLUS 50 ML IV SCH (08:45)
[2019-02-14] MEDS: ENOXAPARIN 40 MG/0.4 ML SYRINGE (J1650) SC SCH (08:45)
[2019-02-14] MEDS ORDERED: AUGM500T34 PO ×2 (08:55→09:22)
[2019-02-14] MEDS ORDERED: BISACODYL ENEMA 10 MG/30 ML PR ONE (09:00)
[2019-02-14] MEDS ORDERED: MAGNESIUM CITRATE 300 ML BTL PO ONE (09:00)
[2019-02-14] MEDS ORDERED: FLEET OIL RETENTION ENEMA PR ONE (09:00)
[2019-02-14] MEDS ORDERED: NORCOTAB PO (10:09)
[2019-02-14] MEDS ORDERED: GABA-1171 PO (10:09)
[2019-02-14] MEDS ORDERED: PREG25CA PO (10:09)
--- NOTE | 2019-02-14 18:10 | DS.PDOC ---
Discharge Summary General Date of Admission Feb 09, 2019 at 13:45 Date of Discharge February 14 2019 Discharge Summary PCP: Kush Anderson MD PROCEDURES PERFORMED DURING STAY: Incision and drainage of flexor tendon, deep and dorsal abscess left foot 02/09/19. Dr. Ryan ADMITTING DIAGNOSES: 1. Infected diabetic foot ulcer. 2. Gastroparesis. DISCHARGE DIAGNOSES: 1. Left foot abscess and cellulitis status post incision and drainage that grew Proteus mirabilis staph aureus and Streptococcus anginous 2. Sepsis on admission. 3. Diabetes mellitus. 4. Anxiety and depression 5. Peripheral vascular disease with left great toe and 2nd toe amputation. 6. Diabetic neuropathy 7. Diabetic gastroparesis 8. Diabetic neuropathy 9. Constipation COMPLICATIONS/CHIEF COMPLAINT: Diabetic Foot Infection Gastroparesis. HISTORY OF PRESENT ILLNESS: 53-year-old male with a past medical history of diabetes, anxiety disorder, history of diabetic foot ulcers in his left foot, history of peripheral vascular disease status post left great toe and second toe amputations, who presented to the emergency room with three weeks of nausea and vomiting. He said the nausea and vomiting is intermittent in nature and has no predilection towards meals. No associated diarrhea or subjective feeling of fever, aches or chills. When he came to the emergency room, he was given IV Zofran and fluids. He also noted t hat he does have a nonhealing ulcer in the plantar region of his left foot and purulent discharge was expressed and it was foul smelling. The patient was started on IV Zosyn and vancomycin. He will be admitted for further management. HOSPITAL COURSE: While the patient was admitted his MRI did show a left foot abscess and cellulitis he was taken to the OR by Dr. Ryan for an incision and drainage. There is no evidence of osteomyelitis. He did have sepsis on admission he was slightly tachycardic with Lasix acidosis and leukocytosis with mild elevation in creatinine he was started on IV antbiotics antibiotics was the escalated appropriately at the recommendations of ID. His diabetes mellitus was managed with insulin. For his remaining chronic medical problems such as anxiety depression diabetic gastroparesis and neuropathy home medications were continued. It was recommended by Dr. Ryan that he will have to return and on a later date for a delayed primary closure. He is to follow-up with Dr. Delvalle outpatient in 10 days he was prescribed 14 days by mouth antibiotics based on s ensitivities his son has follow-up with her he will continue antibiotics further if needed. Home care dressing changes instructions were provided to the patient. He is agreeable to all the plan stated to him the day of discharge. later date for a delayed primary closure DISCHARGE MEDICATIONS: Please see below. ALLERGIES: Please see below. PHYSICAL EXAMINATION ON DISCHARGE: VITAL SIGNS: Please see below. GENERAL: Alert oriented comfortable in no acute distress HEENT: Atraumatic normocephalic pupils round and reactive neck is supple no JVD no lymphadenopathy noted CARDIOVASCULAR EXAMINATION: Normal S1-S2 sounds regular rate and rhythm no audible murmurs RESPIRATORY EXAMINATION: Clear to auscultate bilaterally no Rales wheezing or rhonchi ABDOMINAL EXAMINATION: Soft nontender positive bowel sounds in all 4 quadrants EXTREMITIES: 2+ distal pulses in the dorsal pedis and posterior tibialis. Plantar aspect status post incision wound was examined non-erythematous measuring about 5 cm long 3 mm wide 1 mm depth. No foul smell serosanguineous discharge healing appropriately LABORATORY DATA: Please see below. IMAGING: Foot X-ray 02/09/2019 Status post amputation first and second digits. A dorsal dislocation third digit MTP joint. Soft tissue gas and swelling. No acute erosive change. Foot MRI: 02/09/2019 Signal intensity is normal in the remaining bony structures and there is no MR evidence of osteomyelitis. There is however a fluid collection around a dorsally dislocated third MTP joint and I cannot exclude a infected fluid collection in this location. Septic arthritis versus tenosynovitis, versus soft tissue abscess. PROGNOSIS: Fair ACTIVITY: As tolerated. DIET: Regular DISPOSITION: 06 Home Health Service. DISCHARGE INSTRUCTIONS: -Follow up with at [facility] 02/24/19@11:15am([phone]) -Follow up with Dr. Delvalle in 10 days. (message left at office to call pt with an appointment; [phone]) -Follow up with Dr. Ryan 03/01/19@3pm([phone]);please bring insurance card and photo ID -[facility] to start 02/15/19([phone]) -Daily dressing change to left foot: soak wound with vashe for 10-15minutes, pat dry. Pack wound with drawtex rope. Cover with 4x4 gauze. Wrap foot with kerlix and then rahul wrap. Change daily. DISCHARGE CONDITION: Stable. TIME SPENT ON DISCHARGE: Greater than 60 minutes. Vital Signs/I&Os Vital Signs Date Time Temp Pulse Resp B/P (MAP) Pulse Ox O2 Delivery O2 Flow Rate FiO2 02/14/19 09:13 18 02/14/19 06:00 96.6 95 163/78 (106) 99 02/09/19 09:54 Room Air I&O- Last 24 Hours up to 6 AM 02/14/19 06:00 Intake Total 2090 ml Output Total 1200 ml Balance 890 ml Laboratory Data Labs 24H Laboratory Tests 2 02/13/19 20:29: Bedside Glucose (Misc Panel) 239H 02/14/19 06:03: Nucleated Red Blood Cells % (auto) 0.0, Anion Gap 5L, Glomerular Filtration Rate > 60.0, Blood Urea Nitrogen 18, Creatinine 0.94, Sodium Level 138, Potassium Level 4.0, Chloride Level 102, Carbon Dioxide Level 31, Calcium Level 9.0, Magnesium Level 2.3, C-Reactive Protein, Quantitative 2.27H 02/14/19 12:35: Bedside Glucose (Misc Panel) 214H CBC/BMP Laboratory Tests 02/14/19 06:03 Red Blood Count 4.64, Mean Corpuscular Volume 85.6, Mean Corpuscular Hemoglobin 28.9, Mean Corpuscular Hemoglobin Concent 33.8, Red Cell Distribution Width 13.2, Calcium Level 9.0 FSBS Laboratory Tests Test 02/13/19 20:29 02/14/19 12:35 Range/Units Bedside Glucose (Misc Panel) 239 214 70-105 MG/DL Microbiology Microbiology 02/09/19 Blood Culture - Final, Complete NO GROWTH AFTER 5 DAYS 02/09/19 Blood Culture - Final, Complete NO GROWTH AFTER 5 DAYS 02/09/19 Anaerobic Culture, Received Pending 02/09/19 Gram Stain - Final, Complete 02/09/19 Abscess Culture - Final, Complete Proteus Mirabilis Staphylococcus Aureus Streptococcus Anginosus Grp 02/09/19 Wound Culture - Final, Complete Staphylococcus Aureus Staphylococcus Sp Coag Neg Streptococcus Anginosus Grp Discharge Medications Scheduled Amoxicillin/Clavulanate Potas (Augmentin 500-125 mg) 1 Tab Tab, 1 TAB PO BID Aspirin (Aspirin) 81 Mg Tab, 81 MG PO QHS, (Reported) Ergocalciferol (Vitamin D) 50,000 Unit Cap, 50,000 UNIT PO 1XWK, (Reported) WEDNESDAYS Escitalopram Oxalate (Escitalopram Oxalate) 10 Mg Tab, 5 MG PO DAILY, (Reported) Gabapentin (Gabapentin) 100 Mg Cap, 100 MG PO TID Insulin Aspart (Novolog) 100 U/Ml Inj, 1 DOSE SC AC, (Reported) PER SLIDING SCALE Insulin Glargine (Lantus) 1 Units/0.01 Ml Susp, 45 UNITS SC QHS, (Reported) Scheduled PRN Acetaminophen/Hydrocodone ([place], Anexsia 5/325) 1 Tab Tab, 1 TAB PO Q6HP PRN for PAIN Allergies Coded Allergies: No Known Allergies (Unverified , 01/12/04) GME ATTESTATION GME ATTESTATION My faculty preceptor for this patient encounter was physically present during the encounter and was fully available. All aspects of the patient interview, examination, medical decision making process, and medical care plan development were reviewed and approved by the faculty preceptor. The faculty preceptor is aware and concurs with the plan as stated in the body of this note and will attest to such by his/her cosignature. ATTENDING NOTE I have both independently examined this patient as well as reviewed the note. I have discussed in detail with the resident the findings and plan of treatment as documented in the residents note. ABILIO Vides MD, DO Feb 14, 2019 18:10 HEMANTH ROMAN MD Feb 15, 2019 18:02
== END 2019-02-14 16:20 | disposition home health service (06) | DRG 710 ==
LOC: M ED 09:53 → M ED INP 13:45 → M MS5PR 17:20
PROVIDERS: ADMIT Internal Medicine; ATTEND Hospitalist
PROC: 0JBR0ZZ Excision of Left Foot Subcutaneous Tissue and Fascia, Open Approach (ICD-10-PCS; 2019-02-09)
PROC: 0L9W0ZZ Drainage of Left Foot Tendon, Open Approach (ICD-10-PCS; principal; 2019-02-09 17:59)
DX: A41.9 Sepsis, unspecified organism (principal); E11.43 Type 2 diabetes mellitus with diabetic autonomic (poly)neuropathy; E11.621 Type 2 diabetes mellitus with foot ulcer; L97.528 Non-pressure chronic ulcer of other part of left foot with other specified severity; L03.116 Cellulitis of left lower limb; K59.00 Constipation, unspecified; F41.9 Anxiety disorder, unspecified; F32.9 Major depressive disorder, single episode, unspecified; Z79.82 Long term (current) use of aspirin; Z79.899 Other long term (current) drug therapy; Z79.4 Long term (current) use of insulin; M65.072 Abscess of tendon sheath, left ankle and foot; Z87.891 Personal history of nicotine dependence; B95.8 Unspecified staphylococcus as the cause of diseases classified elsewhere; B95.5 Unspecified streptococcus as the cause of diseases classified elsewhere; B96.4 Proteus (mirabilis) (morganii) as the cause of diseases classified elsewhere

== ENCOUNTER 2019-03-04 12:02 | Day surgery (SDC) | payer MEDICAID, OTHER ==
[~2019-03-04] VITALS: Ht 177.8 cm; Wt 89.8 kg
[~2019-03-04 12:02] MED LIST changes: +AMPICILLIN SOD/SULBACTAM SOD 3 GM in D5W MINI-BAG PLUS 100 ML IV ONE; +AUGM500T34 PO; +BACI50OI TOP; +ESCI10TA2 PO; +GABA-1171 PO; +HYDR-3715 PO; +LORA0.5T11 PO; +PREG25CA PO; +ZOLP5TAB PO
[2019-03-04] MEDS ORDERED: LIDOCAINE 2% MDV 20 ML VIAL As Ordered ONE (14:50)
[2019-03-04] MEDS ORDERED: dexameTHASONE 4 MG/ML 1ML VIAL (J1100) As Ordered ONE (14:50)
[2019-03-04] MEDS ORDERED: UNASYN 1.5 GM VIAL As Ordered ONE (14:50)
[2019-03-04] MEDS ORDERED: BUPIVACAINE HCL 0.5% 30 ML VIAL As Ordered ONE (14:51)
[2019-03-04] MEDS ORDERED: ONDANSETRON 4MG/2ML VIAL (J2405) As Ordered ONE (15:10)
[2019-03-04] MEDS ORDERED: LIDOCAINE 2% INJ 100 MG/5 ML SDV (FOR ANES.) As Ordered ONE (15:10)
[2019-03-04] MEDS ORDERED: fentaNYL 100 MCG/2 ML INJECTION (J3010) As Ordered ONE (15:10)
[2019-03-04] MEDS ORDERED: PROPOFOL 200 MG/20 ML VIAL As Ordered ONE (15:10)
[2019-03-04] MEDS ORDERED: MIDAZOLAM INJ 2 MG/2 ML VIAL (J2250) As Ordered ONE (15:10)
[2019-03-04] MEDS ORDERED: METOCLOPRAMIDE INJ 10MG/2ML VIAL (J2765) As Ordered ONE (15:19)
[2019-03-04] MEDS ORDERED: KETAMINE HCL 200 MG/20 ML VIAL As Ordered ONE (15:23)
[2019-03-04] MEDS ORDERED: VANCOMYCIN HCL 500 MG/10 ML VIAL (J3370) As Ordered ONE (15:30)
[2019-03-04] MEDS ORDERED: KETOROLAC 60 MG/2 ML VIAL (J1885) As Ordered ONE (15:31)
[2019-03-04 16:30] VITALS: BP 142/78
[2019-03-04] MEDS ORDERED: fentaNYL 100 MCG/2 ML INJECTION (J3010) IV PRN (16:30)
[2019-03-04] MEDS ORDERED: ONDANSETRON 4MG/2ML VIAL (J2405) IV PRN (16:30)
[2019-03-04] MEDS ORDERED: PERCOCET 5MG/325MG TAB PO PRN (16:30)
[2019-03-04] MEDS ORDERED: LR 1,000 ML IV SCH (16:30)
[2019-03-04] MEDS ORDERED: MORPHINE 10 MG/ML 1ML VIAL (J2270) IV PRN (16:30)
--- NOTE | 2019-03-04 18:24 | RO ---
DATE OF PROCEDURE: 03/04/2019 PREPROCEDURE DIAGNOSIS: Stage IV wound on the plantar surface of the left foot. 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 SURGERIES PERFORMED: 1. Incisional debridement to muscle and capsule of the left foot. 2. Insertion of antibiotic vancomycin beads and delayed primary closure of the left foot. SURGEON: Jay Ryan DPM INDEPENDENT MARKETING CONSULTANT: None. ANESTHESIA: Local MAC. IRRIGATION: Dilute vancomycin solution, 3 liters, low pressure pulse lavage. ESTIMATED BLOOD LOSS: 5 mL. DESCRIPTION OF PROCEDURE: On 03/04/2019, this 53-year-old male was taken from his hospital room to the operating room and placed on the operating room table in supine position. Following the induction of IV sedation and local anesthesia, left lower extremity was prepped and draped in the usual septic manner. Attention was directed to the patient's left foot and utilizing a Nava derma curette, the skin edges were incised and then incisional debridement down to the muscle and capsule overlying the ulcer site. The ulcer measured approximately 6.5 cm x 1 cm x 6 mm in depth. Good granulation tissue was noted after debridement with good bleeding tissue. Utilizing #2-0 nylon, the wound was closed. Just prior to closure, 5 mm vancomycin beads were placed into the wound. Closure was obtained under no tension; however, a bolster stitch was placed to try to reduce tension across the incision line with #2-0 nylon. Sterile dressing was applied consisting with Adaptic, 4 x 4's with 4 inch Kerlix and an Loi wrap. The patient is to stay partial weightbearing. We will have him use crutches to assist in ambulation. His questions were answered.
== END 2019-03-04 16:30 | disposition home or self-care (01) ==
LOC: M SDC 12:02
PROVIDERS: ATTEND Podiatrist
DX: M65.072 Abscess of tendon sheath, left ankle and foot (principal); B95.8 Unspecified staphylococcus as the cause of diseases classified elsewhere; E11.43 Type 2 diabetes mellitus with diabetic autonomic (poly)neuropathy; K31.84 Gastroparesis; E11.40 Type 2 diabetes mellitus with diabetic neuropathy, unspecified; I73.9 Peripheral vascular disease, unspecified; Z79.4 Long term (current) use of insulin; F41.9 Anxiety disorder, unspecified; F32.9 Major depressive disorder, single episode, unspecified
CPT/HCPCS: 11043; C1713; J1885; J2250; J2405; J2765; J3010; J3370

== ENCOUNTER 2019-11-16 14:56 | Emergency (ER) | payer OTHER ==
[~2019-11-16] VITALS: Ht 180.3 cm; Wt 83.5 kg
[~2019-11-16 14:56] MED LIST changes: -AMPICILLIN SOD/SULBACTAM SOD 3 GM in D5W MINI-BAG PLUS 100 ML IV ONE
[2019-11-16] MEDS ORDERED: AMOX875T2 (15:06)
[2019-11-16] MEDS ORDERED: CLON0.12 PO (15:06)
--- NOTE | 2019-11-16 16:04 | REP ---
Clinical: Chest pain . Comparison: 05/08/2017 . Findings: The mediastinum and cardiac silhouette are stable and within normal limits for portable technique. The lung horner are clear without acute consolidation, effusion, or pneumothorax. Skeletal structures are intact. Impression: No acute cardiopulmonary process appreciated. Electronically Signed by Wei Cartagena MD 11/16/2019 03:55 P
[2019-11-16 16:12] LABS: HEMATOCRIT 46.7 % (42.0-52.0); HEMOGLOBIN 15.5 g/dl (13.5-17.5); MEAN CORPUSCULAR HEMOGLOBIN 28.6 pg (27.0-33.0); MEAN CORPUSCULAR HGB CONC 33.2 g/dl (32.0-36.5); MEAN CORPUSCULAR VOLUME 86.2 fl (80.0-96.0); PLATELET COUNT, AUTOMATED 191 10^3/uL (150-450); RED BLOOD COUNT 5.42 10^6/uL (4.30-6.10)
[2019-11-16 16:23] LABS: INR 1.06; PARTIAL THROMBOPLASTIN TIME 32.3 SECONDS (25.0-38.4); PROTHROMBIN TIME 13.5 SECONDS (11.8-14.0)
[2019-11-16 16:32] LABS: ATYPICAL LYMPH 9 % (0-5); EOSINOPHILS 1 % (0-3); LYMPHOCYTES 26 % (16-44); MONOCYTES 12 % (0-5); NEUTROPHILS 52 % (28-66)
[2019-11-16 16:33] LABS: PLATELET ESTIMATE NORMAL (NORMAL)
[2019-11-16 16:43] LABS: ALBUMIN 2.9 GM/DL (3.2-5.2); ALT/SGPT 25 U/L (12-78); BILIRUBIN,DIRECT 0.1 MG/DL (0.0-0.2); BILIRUBIN,TOTAL 0.6 MG/DL (0.2-1.0); CK-MB VALUE MASS < 1.0 NG/ML (<3.6); CPK CREATINE PHOSPHOKINASE 48 U/L (39-308); LIPASE 165 U/L (73-393); MB/CK RELATIVE INDEX 2.08 (< OR =4); NT-PRO BNP 114 PG/ML (<125); TOTAL PROTEIN 6.6 GM/DL (6.4-8.2); TROPONIN I < 0.02 NG/ML (< 0.10)
[2019-11-16] MEDS ORDERED: ISOVUE-370 76% 100ML VIAL (Q9967) As Ordered ONE ×2 (17:08→17:22)
--- NOTE | 2019-11-16 18:39 | REPVR ---
PROCEDURE INFORMATION: Exam: CT Angiography Chest With Contrast Exam date and time: 11/16/2019 5:16 PM Age: 54 years old Clinical indication: Chest pain; Additional info: Chest pain/abdominal pain TECHNIQUE: Imaging protocol: Computed tomographic angiography of the chest with intravenous contrast. 3D rendering: MIP and/or 3D reconstructed images were created by the technologist. Radiation optimization: All CT scans at this facility use at least one of these dose optimization techniques: automated exposure control; mA and/or kV adjustment per patient size (includes targeted exams where dose is matched to clinical indication); or iterative reconstruction. Contrast material: ISOVUE 370; Contrast volume: 100 ml; Contrast route: IV; COMPARISON: No relevant prior studies available. FINDINGS: Pulmonary arteries: Unremarkable. No pulmonary emboli. Aorta: Minimal atherosclerosis of the thoracic aorta. No thoracic aortic aneurysm or dissection. Lungs: Mild dependent opacities within the lung bases, likely atelectasis. No pulmonary consolidation. Pleural space: Unremarkable. No pneumothorax. No pleural effusion. Heart: Unremarkable. No cardiomegaly. No pericardial effusion. Lymph nodes: Mild enlarged aorticopulmonary window and subcarinal lymph nodes, measuring 10 mm and 15 mm in short axis diameter, respectively, nonspecific. Tiny bilateral hilar lymph nodes. Bones/joints: Unremarkable. No acute fracture. Soft tissues: Unremarkable. IMPRESSION: 1. No pulmonary arterial embolism. 2. Mild mediastinal lymphadenopathy, nonspecific. Electronically signed by: Colten Day On 11/16/2019 18:38:46 PM
--- NOTE | 2019-11-16 18:44 | REPVR ---
PROCEDURE INFORMATION: Exam: CT Abdomen And Pelvis With Contrast Exam date and time: 11/16/2019 5:16 PM Age: 54 years old Clinical indication: Abdominal pain; Generalized; Additional info: Chest pain/abdominal pain TECHNIQUE: Imaging protocol: Computed tomography of the abdomen and pelvis with intravenous contrast. Radiation optimization: All CT scans at this facility use at least one of these dose optimization techniques: automated exposure control; mA and/or kV adjustment per patient size (includes targeted exams where dose is matched to clinical indication); or iterative reconstruction. Contrast material: ISOVUE 370; Contrast volume: 100 ml; Contrast route: IV; COMPARISON: CT ABD/PEL W/IV CONTRAST ONLY 02/12/2017 3:46 PM FINDINGS: Liver: Unremarkable. No mass. Gallbladder and bile ducts: Unremarkable. No calcified stones. No ductal dilation. Pancreas: Unremarkable. No ductal dilation. Spleen: Unremarkable. No splenomegaly. Adrenals: Normal. No mass. Kidneys and ureters: Unremarkable. No stones. No hydronephrosis. Stomach and bowel: Unremarkable. No obstruction. No mucosal thickening. Appendix: No evidence of appendicitis. Intraperitoneal space: Unremarkable. No free air. No significant fluid collection. Vasculature: Mild atherosclerosis of the abdominal aorta and iliac arteries. No aneurysm. Lymph nodes: Small calcified gastrohepatic lymph node, nonspecific and unchanged. No pathologically enlarged lymph nodes identified within the abdomen or pelvis. Bladder: Unremarkable as visualized. Reproductive: Unremarkable as visualized. Bones/joints: No acute fracture. Soft tissues: Unremarkable. IMPRESSION: No acute abnormality. Electronically signed by: Colten Day On 11/16/2019 18:44:24 PM
[2019-11-16] MEDS ORDERED: METOCLOPRAMIDE INJ 10MG/2ML VIAL (J2765) IV ONE (18:45)
[2019-11-16] MEDS ORDERED: REGL5TAB2 PO (19:07)
[2019-11-16 19:39] VITALS: BP 118/78
--- NOTE | 2019-11-16 20:21 | ECGEPIP ---
[facility] - ED Test Date: 2019-11-16 Pat Name: SHOSHANA MCKEON Department: Room: - Gender: Male Science Instructor: FLORECITA : 1965 Requested By: NICOL Owens Order Number: [id number] Reading MD: Edi Kim Measurements Intervals [place] Rate: 90 P: 57 SC: 136 QRS: 116 QRSD: 89 T: 55 QT: 365 QTc: 447 Interpretive Statements SINUS RHYTHM LEFT ATRIAL ENLARGEMENT POSSIBLE RIGHT VENTRICULAR HYPERTROPHY PROBABLE LATERAL MYOCARDIAL INFARCTION, PROBABLY OLD PROBABLE INFERIOR MYOCARDIAL INFARCTION, PROBABLY OLD SIMILAR TO 02/09/19 Electronically Signed on 11-16-2019 20:21:01 EST by Edi Kim
== END 2019-11-16 19:43 | disposition home or self-care (01) ==
LOC: M ED 14:56
DX: K31.84 Gastroparesis (principal); R94.31 Abnormal electrocardiogram [ECG] [EKG]; R59.0 Localized enlarged lymph nodes; E11.9 Type 2 diabetes mellitus without complications; F41.9 Anxiety disorder, unspecified; F33.9 Major depressive disorder, recurrent, unspecified; F17.210 Nicotine dependence, cigarettes, uncomplicated; Z79.4 Long term (current) use of insulin; Z79.82 Long term (current) use of aspirin; Z79.891 Long term (current) use of opiate analgesic; Z79.899 Other long term (current) drug therapy
CPT/HCPCS: 71045; 71275; 74177; 80047; 80076; 82550; 82553; 83690; 83880; 84443; 85025; 85610; 85730; 93005; 93041; 94760; 96374; 99285; J2765; Q9967

== ENCOUNTER 2020-06-11 13:15 | Inpatient (IN) | payer OTHER ==
[~2020-06-11 13:15] MED LIST changes: +AMOX875T2; +CLON0.12 PO; -LORA0.5T11 PO; +LORA0.5T5 PO; +REGL5TAB2 PO
[2020-06-11] MEDS ORDERED: ISOVUE-370 76% 100ML VIAL As Ordered ONE (15:41)
[2020-06-12] MEDS ORDERED: ACETAMINOPHEN TAB 650MG DOSE (2X325MG) As Ordered ONE (00:32)
[2020-06-12] MEDS ORDERED: GABAPENTIN 400 MG CAP As Ordered ONE (00:32)
[2020-06-12] MEDS ORDERED: LEVEMIR (INSULIN DETEMIR) 1 UNITS/0.01ML As Ordered ONE (00:34)
[2020-06-12] MEDS ORDERED: ENOXAPARIN 40MG/0.4ML SYRINGE (J1650 PER 10MG) As Ordered ONE (09:54)
[2020-06-12] MEDS ORDERED: ESCITALOPRAM OXALATE 10 MG TAB (LEXAPRO) As Ordered ONE (09:54)
[2020-06-12] MEDS ORDERED: clonazePAM 0.5 MG TAB As Ordered ONE (09:54)
[2020-06-12] MEDS ORDERED: ASPIRIN 81 MG ENTERIC TAB As Ordered ONE (09:55)
[2020-06-12] MEDS ORDERED: HumaLOG INSULIN (NovoLOG) PER UNIT As Ordered ONE (12:54)
[2020-06-13] MEDS ORDERED: ACETAMINOPHEN 325 MG TAB ONE (04:50)
[2020-06-13] MEDS ORDERED: ACETAMINOPHEN 325 MG TAB As Ordered ONE (04:50)
[2020-06-13] MEDS ORDERED: ESCITALOPRAM OXALATE 10 MG TAB (LEXAPRO) As Ordered ONE (09:42)
[2020-06-13] MEDS ORDERED: clonazePAM 0.5 MG TAB ONE (09:42)
[2020-06-13] MEDS ORDERED: ESCITALOPRAM OXALATE 10 MG TAB (LEXAPRO) ONE (09:42)
[2020-06-13] MEDS ORDERED: clonazePAM 0.5 MG TAB As Ordered ONE (09:42)
[2020-06-13] MEDS ORDERED: ENOXAPARIN 40MG/0.4ML SYRINGE (J1650 PER 10MG) As Ordered ONE (09:42)
[2020-06-13] MEDS ORDERED: ASPIRIN 81 MG ENTERIC TAB ONE (09:42)
[2020-06-13] MEDS ORDERED: ENOXAPARIN 40MG/0.4ML SYRINGE (J1650 PER 10MG) ONE (09:42)
[2020-06-13] MEDS ORDERED: ASPIRIN 81 MG ENTERIC TAB As Ordered ONE (09:43)
[2020-06-13] MEDS ORDERED: HumaLOG INSULIN (NovoLOG) PER UNIT As Ordered ONE (17:53)
[2020-06-13] MEDS ORDERED: HumaLOG INSULIN (NovoLOG) PER UNIT ONE (17:53)
[2020-06-13] MEDS ORDERED: ACETAMINOPHEN TAB 650MG DOSE (2X325MG) As Ordered ONE (21:09)
[2020-06-13] MEDS ORDERED: GABAPENTIN 400 MG CAP ONE (21:09)
[2020-06-13] MEDS ORDERED: GABAPENTIN 400 MG CAP As Ordered ONE (21:09)
[2020-06-13] MEDS ORDERED: LEVEMIR (INSULIN DETEMIR) 1 UNITS/0.01ML ONE (21:09)
[2020-06-13] MEDS ORDERED: ACETAMINOPHEN TAB 650MG DOSE (2X325MG) ONE (21:09)
[2020-06-13] MEDS ORDERED: LEVEMIR (INSULIN DETEMIR) 1 UNITS/0.01ML As Ordered ONE (21:11)
[2020-06-14] MEDS ORDERED: ESCITALOPRAM OXALATE 10 MG TAB (LEXAPRO) ONE (09:01)
[2020-06-14] MEDS ORDERED: ENOXAPARIN 40MG/0.4ML SYRINGE (J1650 PER 10MG) As Ordered ONE (09:01)
[2020-06-14] MEDS ORDERED: ESCITALOPRAM OXALATE 10 MG TAB (LEXAPRO) As Ordered ONE (09:01)
[2020-06-14] MEDS ORDERED: ENOXAPARIN 40MG/0.4ML SYRINGE (J1650 PER 10MG) ONE (09:01)
[2020-06-14] MEDS ORDERED: clonazePAM 0.5 MG TAB ONE (09:01)
[2020-06-14] MEDS ORDERED: ASPIRIN 81 MG ENTERIC TAB ONE (09:01)
[2020-06-14] MEDS ORDERED: clonazePAM 0.5 MG TAB As Ordered ONE (09:01)
[2020-06-14] MEDS ORDERED: ASPIRIN 81 MG ENTERIC TAB As Ordered ONE (09:01)
[2020-06-14] MEDS ORDERED: HumaLOG INSULIN (NovoLOG) PER UNIT As Ordered ONE ×2 (14:14→17:47)
[2020-06-14] MEDS ORDERED: HumaLOG INSULIN (NovoLOG) PER UNIT ONE ×2 (14:14→17:47)
[2020-06-14] MEDS ORDERED: PERCOCET 5MG/325MG TAB ONE (16:10)
[2020-06-14] MEDS ORDERED: KETOROLAC 30 MG/ML 1ML VIAL ONE (16:10)
[2020-06-14] MEDS ORDERED: KETOROLAC 30 MG/ML 1ML VIAL As Ordered ONE (16:10)
[2020-06-14] MEDS ORDERED: PERCOCET 5MG/325MG TAB As Ordered ONE (16:10)
[2020-06-14] MEDS ORDERED: GABAPENTIN 400 MG CAP As Ordered ONE (22:27)
[2020-06-14] MEDS ORDERED: ACETAMINOPHEN 325 MG TAB ONE (22:27)
[2020-06-14] MEDS ORDERED: LEVEMIR (INSULIN DETEMIR) 1 UNITS/0.01ML ONE (22:27)
[2020-06-14] MEDS ORDERED: GABAPENTIN 400 MG CAP ONE (22:27)
[2020-06-14] MEDS ORDERED: ACETAMINOPHEN 325 MG TAB As Ordered ONE (22:29)
[2020-06-14] MEDS ORDERED: LEVEMIR (INSULIN DETEMIR) 1 UNITS/0.01ML As Ordered ONE (22:35)
[2020-06-15] MEDS ORDERED: clonazePAM 0.5 MG TAB As Ordered ONE (09:34)
[2020-06-15] MEDS ORDERED: ENOXAPARIN 40MG/0.4ML SYRINGE (J1650 PER 10MG) As Ordered ONE (09:35)
[2020-06-15] MEDS ORDERED: ASPIRIN 81 MG ENTERIC TAB As Ordered ONE (09:35)
[2020-06-15] MEDS ORDERED: ESCITALOPRAM OXALATE 10 MG TAB (LEXAPRO) As Ordered ONE (09:35)
[2020-06-15] MEDS ORDERED: HumaLOG INSULIN (NovoLOG) PER UNIT As Ordered ONE ×2 (09:51→17:41)
[2020-06-15] MEDS ORDERED: GABAPENTIN 400 MG CAP As Ordered ONE (21:47)
[2020-06-15] MEDS ORDERED: AUGMENTIN 875 MG TAB As Ordered ONE (21:47)
[2020-06-15] MEDS ORDERED: ACETAMINOPHEN 325 MG TAB As Ordered ONE (21:47)
[2020-06-15] MEDS ORDERED: LEVEMIR (INSULIN DETEMIR) 1 UNITS/0.01ML As Ordered ONE (21:48)
[2020-06-16] MEDS ORDERED: ACETAMINOPHEN 325 MG TAB As Ordered ONE (05:11)
[2020-06-16] MEDS ORDERED: HumaLOG INSULIN (NovoLOG) PER UNIT As Ordered ONE ×2 (08:50→12:31)
[2020-06-16] MEDS ORDERED: ASPIRIN 81 MG ENTERIC TAB As Ordered ONE (09:41)
[2020-06-16] MEDS ORDERED: clonazePAM 0.5 MG TAB As Ordered ONE (09:41)
[2020-06-16] MEDS ORDERED: ESCITALOPRAM OXALATE 10 MG TAB (LEXAPRO) As Ordered ONE (09:41)
[2020-06-16] MEDS ORDERED: ENOXAPARIN 40MG/0.4ML SYRINGE (J1650 PER 10MG) As Ordered ONE (09:43)
[2020-06-16] MEDS ORDERED: AUGMENTIN 875 MG TAB As Ordered ONE (13:52)
[2020-07-08 17:21] LABS: ALBUMIN 3.1 GM/DL (3.2-5.2); ALT/SGPT 25 U/L (12-78); BILIRUBIN,DIRECT 0.1 MG/DL (0.0-0.2); BILIRUBIN,TOTAL 0.6 MG/DL (0.2-1.0); BLOOD UREA NITROGEN 16 MG/DL (7-18); C REACTIVE PROTEIN QUANTITATIV 0.78 MG/DL (0.00-0.30); CALCIUM LEVEL 8.7 MG/DL (8.5-10.1); CARBON DIOXIDE LEVEL 31 MEQ/L (21-32); CHLORIDE LEVEL 106 MEQ/L (98-107); CK-MB VALUE MASS 1.3 NG/ML (<3.6); CPK CREATINE PHOSPHOKINASE 58 U/L (39-308); CREATININE FOR GFR 0.92 MG/DL (0.70-1.30); FREE T4 0.95 NG/DL (0.76-1.46); GLOMERULAR FILTRATION RATE > 60.0 (>56); GLUCOSE, FASTING 119 MG/DL (70-100); MB/CK RELATIVE INDEX 2.24 (< OR =4); POTASSIUM SERUM 4.6 MEQ/L (3.5-5.1); SODIUM LEVEL 141 MEQ/L (136-145); TOTAL PROTEIN 6.9 GM/DL (6.4-8.2); TROPONIN I < 0.02 NG/ML (< 0.10)
[2020-07-08 22:52] LABS: CK-MB VALUE MASS 1.7 NG/ML (<3.6); CPK CREATINE PHOSPHOKINASE 55 U/L (39-308); MB/CK RELATIVE INDEX 3.09 (< OR =4); TROPONIN I < 0.02 NG/ML (< 0.10)
[2020-07-08 22:53] LABS: HEMOGLOBIN A1c 7.5 %
[2020-07-15 13:57] LABS: BASO # 0.1 10^3/uL (0.0-0.2); BASO % 0.7 % (0.0-1.0); EOS # 0.2 10^3/uL (0.0-0.5); HEMATOCRIT 45.6 % (42.0-52.0); LYMPH # 1.7 10^3/uL (1.5-5.0); LYMPH % 14.6 % (24.0-44.0); MEAN CORPUSCULAR HEMOGLOBIN 29.5 pg (27.0-33.0); MEAN CORPUSCULAR HGB CONC 32.9 g/dl (32.0-36.5); MEAN CORPUSCULAR VOLUME 89.6 fl (80.0-96.0); MONO # 0.8 10^3/uL (0.0-0.8); MONO % 7.1 % (0.0-5.0); NEUTROPHILS # 8.8 10^3/uL (1.5-8.5); PLATELET COUNT, AUTOMATED 237 10^3/uL (150-450); RED BLOOD COUNT 5.09 10^6/uL (4.30-6.10); WHITE BLOOD COUNT 11.7 10^3/uL (4.0-10.0)
[2020-07-15 13:59] LABS: ERYTHROCYTE SEDIMENTATION RATE 18 mm/hr (0-20)
== END 2020-06-16 14:40 | disposition home or self-care (01) | DRG 197 ==
LOC: M ED 13:15 → M PCU 13:16
PROVIDERS: ADMIT Internal Medicine Nephrology; ATTEND Internal Medicine Nephrology
DX: E11.51 Type 2 diabetes mellitus with diabetic peripheral angiopathy without gangrene (principal); I95.1 Orthostatic hypotension; E11.43 Type 2 diabetes mellitus with diabetic autonomic (poly)neuropathy; E11.621 Type 2 diabetes mellitus with foot ulcer; F32.9 Major depressive disorder, single episode, unspecified; I10 Essential (primary) hypertension; Z79.899 Other long term (current) drug therapy

== ENCOUNTER → 2020-07-02 | Outpatient (CLI) | payer OTHER ==
[~2020-07-02] MED LIST changes: +ASPI-546 PO; -ASPI1TAB15 PO
--- NOTE | 2020-08-10 11:24 | ECHO ---
DATE OF PROCEDURE: 07/02/2020 Height: 5 feet 11 inches Weight: 190 pounds REFERRING PHYSICIAN: Jaz Sandhu MD INDICATION: Syncope. MEASUREMENTS: 2D Measurements: Left atrium 3.6 cm Interventricular septum 1.35 cm Posterior wall 1.14 cm Left ventricle diastole 4.1 cm Aortic root 2.9 cm Aortic annulus 1.9 cm Proximal ascending aorta 2.9 cm Left atrial volume index 17 Inferior vena cava 2.3 cm Doppler Measurements: No aortic regurgitation No aortic stenosis No mitral stenosis No mitral regurgitation No tricuspid regurgitation No pulmonic regurgitation Aortic valve velocity 108 cm/s LVOT velocity 199.9 cm/s LVOT VTI 23.1 cm Mitral E velocity 87.0 cm/s Mitral A velocity 79.3 cm/s Mitral deceleration time 204 msec Pulmonary acceleration time 144 msec MITRAL ANNULAR TISSUE DOPPLER E prime lateral 7.7 cm/s ?, E prime septal 5.0 cm/s ? DESCRIPTION: Rhythm was sinus. Image quality was fair. This was a 2D, M-mode, color flow Doppler, and pulsed wave Doppler examination including mitral annular tissue Doppler. CONCLUSIONS: Normal left ventricle internal dimensions. Mild focal hypertrophy at the basal interventricular septum. Normal regional wall motion and wall thickening. Normal LV systolic function. LVEF 65% by visual assessment. Probably normal LV diastolic function. Moderate aortic valve sclerosis of a 3-cuspid aortic valve aortic valve. No aortic stenosis or regurgitation. Otherwise normal appearing echocardiogram Doppler findings. MTDD
== END ==
LOC: M CARPUL 10:30
PROVIDERS: ATTEND Internal Medicine Nephrology
DX: R55 Syncope and collapse (principal)

== ENCOUNTER → 2020-11-07 | Outpatient (REF) | payer OTHER | LOC: M LAB REF 11:34 | PROVIDERS: ATTEND Podiatrist | DX: L97.509 Non-pressure chronic ulcer of other part of unspecified foot with unspecified severity (principal); M79.672 Pain in left foot ==

== ENCOUNTER → 2021-05-03 | Outpatient (CLI) | payer OTHER ==
[~2021-05-03] MED LIST changes: +CLON0.5T2 PO; +D31000TA2 PO; +DULO1CAP6 PO; +ESCI10TA16 PO; -ESCI10TA2 PO; +FLUD0.1T PO; +GABA-283 PO; -GABA-845 PO; +JARD1TAB3 PO; +MIDO10TA PO
== END ==
LOC: M LABSMTC 11:15
PROVIDERS: ATTEND Anesthesiology
DX: Z01.812 Encounter for preprocedural laboratory examination (principal)

== ENCOUNTER 2021-05-08 06:33 | Day surgery (SDC) | payer OTHER ==
[~2021-05-08] VITALS: Ht 177.8 cm; Wt 88.4 kg
[~2021-05-08 06:33] MED LIST changes: +NS 1,000 ML IV ONE
[2021-05-08] MEDS ORDERED: LIDOCAINE 2% 100MG/5ML SDV (FOR ANES.) As Ordered ONE (06:57)
[2021-05-08] MEDS ORDERED: propofoL 200 MG/20 ML VIAL As Ordered ONE (06:57)
--- NOTE | 2021-05-08 08:24 | ROOR ---
Patient Name: Luis M Quinn Procedure Date: 05/08/2021 8:01 AM Date of : 1965 Age: 55 Room: [facility] Gender: Male Note Status: Finalized Procedure: Upper GI endoscopy Indications: Suspected gastroparesis Providers: DO Arleth Lopez MD: Kush Anderson MD Requesting Provider: Medicines: Propofol per Anesthesia Complications: No immediate complications. Procedure: Pre-Anesthesia Assessment: - Prior to the procedure, a History and Physical was performed, and patient medications and allergies were reviewed. The patient is competent. The risks and benefits of the procedure and the sedation options and risks were discussed with the patient. All questions were answered and informed consent was obtained. Patient identification and proposed procedure were verified by the physician, the nurse, the anesthesiologist and the installation and service technician in the endoscopy suite. Mental Status Examination: alert and oriented. Airway Examination: normal oropharyngeal airway and neck mobility. Respiratory Examination: clear to auscultation. CV Examination: normal. Prophylactic Antibiotics: The patient does not require prophylactic antibiotics. Prior Anticoagulants: The patient has taken no previous anticoagulant or antiplatelet agents. ASA Grade Assessment: II - A patient with mild systemic disease. After reviewing the risks and benefits, the patient was deemed in satisfactory condition to undergo the procedure. The anesthesia plan was to use monitored anesthesia care (MAC). Immediately prior to administration of medications, the patient was re-assessed for adequacy to receive sedatives. The heart rate, respiratory rate, oxygen saturations, blood pressure, adequacy of pulmonary ventilation, and response to care were monitored throughout the procedure. The physical status of the patient was re-assessed after the procedure. The Endoscope was introduced through the mouth, and advanced to the third part of duodenum. The upper GI endoscopy was accomplished without difficulty. The patient tolerated the procedure well. Findings: Scattered mild inflammation characterized by erythema, friability and linear erosions was found in the prepyloric region of the stomach. Biopsies were taken with a cold forceps for Helicobacter pylori testing. Biopsies were taken with a cold forceps for histology. Estimated blood loss was minimal. A medium amount of a phytobezoar was found in the gastric body. Impression: - Gastritis. Biopsied. - A medium amount of a phytobezoar in the stomach. Recommendation: - Patient has a contact number available for emergencies. The signs and symptoms of potential delayed complications were discussed with the patient. Return to normal activities tomorrow. Written discharge instructions were provided to the patient. - Await pathology results. - Return to physician conservation assistant at appointment to be scheduled. Procedure Code(s): --- Professional --- 86242, Esophagogastroduodenoscopy, flexible, transoral; with biopsy, single or multiple Diagnosis Code(s): --- Professional --- K29.70, Gastritis, unspecified, without bleeding T18.2XXA, Foreign body in stomach, initial encounter CPT copyright 2019 [employer]. All rights reserved. The codes documented in this report are preliminary and upon battery container inspector review may be revised to meet current compliance requirements. Idris Lincoln DO 05/08/2021 8:23:22 AM Electronically signed by Idris Lincoln DO Number of Addenda: 0 Note Initiated On: 05/08/2021 8:01 AM Estimated Blood Loss: Estimated blood loss was minimal.
--- NOTE | 2021-05-08 08:27 | ROOR ---
Patient Name: Luis M Quinn Procedure Date: 05/08/2021 8:02 AM Date of : 1965 Age: 55 Room: [facility] Gender: Male Note Status: Finalized Procedure: Colonoscopy Indications: Screening for colorectal malignant neoplasm Providers: DO Arleth Lopez MD: Kush Anderson MD Requesting Provider: Medicines: Propofol per Anesthesia Complications: No immediate complications. Procedure: Pre-Anesthesia Assessment: - Prior to the procedure, a History and Physical was performed, and patient medications and allergies were reviewed. The patient is competent. The risks and benefits of the procedure and the sedation options and risks were discussed with the patient. All questions were answered and informed consent was obtained. Patient identification and proposed procedure were verified by the physician, the nurse, the anesthesiologist and the infectious waste technician in the endoscopy suite. Mental Status Examination: alert and oriented. Airway Examination: normal oropharyngeal airway and neck mobility. Respiratory Examination: clear to auscultation. CV Examination: normal. Prophylactic Antibiotics: The patient does not require prophylactic antibiotics. Prior Anticoagulants: The patient has taken no previous anticoagulant or antiplatelet agents. ASA Grade Assessment: II - A patient with mild systemic disease. After reviewing the risks and benefits, the patient was deemed in satisfactory condition to undergo the procedure. The anesthesia plan was to use monitored anesthesia care (MAC). Immediately prior to administration of medications, the patient was re-assessed for adequacy to receive sedatives. The heart rate, respiratory rate, oxygen saturations, blood pressure, adequacy of pulmonary ventilation, and response to care were monitored throughout the procedure. The physical status of the patient was re-assessed after the procedure. The Colonoscope was introduced through the anus with the intention of advancing to the cecum. The scope was advanced to the sigmoid colon before the procedure was aborted. Medications were not given. The colonoscopy was performed without difficulty. The patient tolerated the procedure well. The quality of the bowel preparation was poor. Findings: A large amount of semi-liquid stool was found in the entire colon, precluding visualization. Impression: - Preparation of the colon was poor. - Stool in the entire examined colon. - No specimens collected. Recommendation: - Patient has a contact number available for emergencies. The signs and symptoms of potential delayed complications were discussed with the patient. Return to normal activities tomorrow. Written discharge instructions were provided to the patient. - Repeat colonoscopy within 3 months because the bowel preparation was suboptimal. - Return to my office at appointment to be scheduled. Procedure Code(s): --- Professional --- G0121, 53, Colorectal cancer screening; colonoscopy on individual not meeting criteria for high risk Diagnosis Code(s): --- Professional --- Z12.11, Encounter for screening for malignant neoplasm of colon CPT copyright 2019 [employer]. All rights reserved. The codes documented in this report are preliminary and upon associate relations specialist review may be revised to meet current compliance requirements. Idris Lincoln DO 05/08/2021 8:26:39 AM Electronically signed by Idris Lincoln DO Number of Addenda: 0 Note Initiated On: 05/08/2021 8:02 AM Estimated Blood Loss: Estimated blood loss: none.
[2021-05-08 08:50] VITALS: BP 139/87
== END 2021-05-08 09:10 | disposition home or self-care (01) ==
LOC: M OPP 06:33
PROVIDERS: ATTEND Surgery
DX: Z12.11 Encounter for screening for malignant neoplasm of colon (principal); K29.70 Gastritis, unspecified, without bleeding; T18.2XXA Foreign body in stomach, initial encounter; K31.89 Other diseases of stomach and duodenum; E10.9 Type 1 diabetes mellitus without complications; Z79.4 Long term (current) use of insulin; Z79.899 Other long term (current) drug therapy

== ENCOUNTER → 2021-05-31 | Outpatient (CLI) | payer OTHER ==
[~2021-05-31] MED LIST changes: -NS 1,000 ML IV ONE
== END ==
LOC: M LABSMTC 12:31
PROVIDERS: ATTEND Anesthesiology
DX: Z01.812 Encounter for preprocedural laboratory examination (principal); Z20.822 Contact with and (suspected) exposure to COVID-19

== ENCOUNTER 2021-06-05 07:32 | Day surgery (SDC) | payer OTHER ==
[~2021-06-05] VITALS: Ht 180.3 cm; Wt 87.1 kg
[~2021-06-05 07:32] MED LIST changes: +NS 1,000 ML IV ONE
[2021-06-05] MEDS ORDERED: LIDOCAINE 2% 100MG/5ML SDV (FOR ANES.) As Ordered ONE (09:32)
[2021-06-05] MEDS ORDERED: propofoL 200 MG/20 ML VIAL As Ordered ONE (09:50)
--- NOTE | 2021-06-05 09:52 | ROOR ---
Patient Name: Luis M Quinn Procedure Date: 06/05/2021 9:27 AM Date of : 1965 Age: 56 Room: [facility] Gender: Male Note Status: Finalized Procedure: Colonoscopy Indications: Screening for colorectal malignant neoplasm Providers: DO Arleth Lopez MD: [facility], Admin. Requesting Provider: Medicines: Propofol per Anesthesia Complications: No immediate complications. Procedure: Pre-Anesthesia Assessment: - Prior to the procedure, a History and Physical was performed, and patient medications and allergies were reviewed. The patient is competent. The risks and benefits of the procedure and the sedation options and risks were discussed with the patient. All questions were answered and informed consent was obtained. Patient identification and proposed procedure were verified by the physician, the nurse, the firebreak cutter and the nuclear plant instrument technician in the endoscopy suite. Mental Status Examination: alert and oriented. Airway Examination: normal oropharyngeal airway and neck mobility. Respiratory Examination: clear to auscultation. CV Examination: normal. Prophylactic Antibiotics: The patient does not require prophylactic antibiotics. Prior Anticoagulants: The patient has taken no previous anticoagulant or antiplatelet agents. ASA Grade Assessment: II - A patient with mild systemic disease. After reviewing the risks and benefits, the patient was deemed in satisfactory condition to undergo the procedure. The anesthesia plan was to use monitored anesthesia care (MAC). Immediately prior to administration of medications, the patient was re-assessed for adequacy to receive sedatives. The heart rate, respiratory rate, oxygen saturations, blood pressure, adequacy of pulmonary ventilation, and response to care were monitored throughout the procedure. The physical status of the patient was re-assessed after the procedure. The Colonoscope was introduced through the anus with the intention of advancing to the cecum. The scope was advanced to the rectum before the procedure was aborted. Medications were not given. The colonoscopy was aborted due to the extreme difficulty of the procedure. The quality of the bowel preparation was unsatisfactory. Findings: Copious quantities of semi-liquid stool was found in the entire colon, precluding visualization. Impression: - The procedure was aborted due to the extreme difficulty of the procedure. - Preparation of the colon was unsatisfactory. - Stool in the entire examined colon. - No specimens collected. Recommendation: - Patient has a contact number available for emergencies. The signs and symptoms of potential delayed complications were discussed with the patient. Return to normal activities tomorrow. Written discharge instructions were provided to the patient. - Repeat colonoscopy within 3 months because the bowel preparation was poor. - Return to physician financial administrative assistant at appointment to be scheduled. Procedure Code(s): --- Professional --- G0121, 53, Colorectal cancer screening; colonoscopy on individual not meeting criteria for high risk Diagnosis Code(s): --- Professional --- Z12.11, Encounter for screening for malignant neoplasm of colon Z53.8, Procedure and treatment not carried out for other reasons CPT copyright 2019 [employer]. All rights reserved. The codes documented in this report are preliminary and upon dye stand loader review may be revised to meet current compliance requirements. Idris Lincoln DO 06/05/2021 9:52:17 AM Electronically signed by Idris Lincoln DO Number of Addenda: 0 Note Initiated On: 06/05/2021 9:27 AM Estimated Blood Loss: Estimated blood loss: none.
[2021-06-05 10:15] VITALS: BP 176/88
== END 2021-06-05 10:20 | disposition home or self-care (01) ==
LOC: M OPP 07:32
PROVIDERS: ATTEND Surgery
DX: Z12.11 Encounter for screening for malignant neoplasm of colon (principal); K29.70 Gastritis, unspecified, without bleeding; R11.2 Nausea with vomiting, unspecified; Z79.4 Long term (current) use of insulin; Z79.82 Long term (current) use of aspirin; Z79.899 Other long term (current) drug therapy

== ENCOUNTER → 2021-07-16 | Outpatient (CLI) | payer OTHER ==
[~2021-07-16] MED LIST changes: -NS 1,000 ML IV ONE
== END ==
LOC: M RAD 08:57
PROVIDERS: ATTEND Physician Assistant
DX: R11.2 Nausea with vomiting, unspecified (principal)
CPT/HCPCS: 78264; A9541

== ENCOUNTER 2024-07-03 14:24 | Emergency (ER) | payer OTHER ==
[~2024-07-03] VITALS: Ht 177.8 cm; Wt 113.6 kg
[~2024-07-03 14:24] MED LIST changes: -D31000TA2 PO; -GABA-283 PO; +GABA-284 PO; +VITA100093 PO
[2024-07-03 16:41] LABS: BASO # 0.1 10^3/uL (0.0-0.2); BASO % 0.8 % (0.0-1.0); EOS # 0.2 10^3/uL (0.0-0.5); EOS % 2.1 % (0.0-3.0); HEMATOCRIT 51.4 % (42.0-52.0); HEMOGLOBIN 16.9 g/dl (13.5-17.5); LYMPH # 1.5 10^3/uL (1.5-5.0); LYMPH % 14.1 % (24.0-44.0); MEAN CORPUSCULAR HEMOGLOBIN 29.9 pg (27.0-33.0); MEAN CORPUSCULAR HGB CONC 32.9 g/dl (32.0-36.5); MONO # 0.9 10^3/uL (0.0-0.8); MONO % 8.2 % (2.0-8.0); NEUTROPHILS # 7.9 10^3/uL (1.5-8.5); PLATELET COUNT, AUTOMATED 254 10^3/uL (150-450); RED BLOOD COUNT 5.65 10^6/uL (4.30-6.10); WHITE BLOOD COUNT 10.7 10^3/uL (4.0-10.0)
[2024-07-03 17:03] LABS: CALCIUM LEVEL 9.3 MG/DL (8.5-10.1); CREATININE FOR GFR 1.34 MG/DL (0.70-1.30); GLOMERULAR FILTRATION RATE 58.3 (>56); POTASSIUM SERUM 5.2 MMOL/L (3.5-5.1)
[2024-07-03 17:19] LABS: INR 0.98; PROTHROMBIN TIME 12.7 SECONDS (12.5-14.5)
[2024-07-03] MEDS: BOOSTRIX VACCINE (TETANUS/DIPHTH/ACEL. PERTUSSIS) 0.5ML SYR IM.IMMUN ONE (17:25)
[2024-07-03 17:28] VITALS: BP 121/78; TEMP 97; O2SAT 96
== END 2024-07-03 17:30 | disposition left against medical advice (07) ==
LOC: M ED 14:24 → EDBD 14:24 → M ED 17:30
DX: H44.812 Hemophthalmos, left eye (principal); V49.40XA Driver injured in collision with unspecified motor vehicles in traffic accident, initial encounter; E11.9 Type 2 diabetes mellitus without complications; K21.9 Gastro-esophageal reflux disease without esophagitis; N18.9 Chronic kidney disease, unspecified; F41.9 Anxiety disorder, unspecified; Z79.4 Long term (current) use of insulin; Z79.82 Long term (current) use of aspirin; Z79.899 Other long term (current) drug therapy; Z53.9 Procedure and treatment not carried out, unspecified reason; Y99.9 Unspecified external cause status

== ENCOUNTER 2024-07-12 12:46 | Emergency (ER) | payer OTHER ==
[~2024-07-12] VITALS: Ht 177.8 cm; Wt 114.9 kg
[2024-07-12 13:18] LABS: BASO # 0.1 10^3/uL (0.0-0.2); EOS # 0.3 10^3/uL (0.0-0.5); HEMATOCRIT 51.7 % (42.0-52.0); LYMPH # 1.8 10^3/uL (1.5-5.0); LYMPH % 13.2 % (24.0-44.0); MEAN CORPUSCULAR HEMOGLOBIN 30.1 pg (27.0-33.0); MEAN CORPUSCULAR HGB CONC 32.9 g/dl (32.0-36.5); MEAN CORPUSCULAR VOLUME 91.7 fl (80.0-96.0); MONO # 0.9 10^3/uL (0.0-0.8); MONO % 6.5 % (2.0-8.0); NEUTROPHILS # 10.3 10^3/uL (1.5-8.5); NEUTROPHILS % 76.2 % (36.0-66.0); PLATELET COUNT, AUTOMATED 265 10^3/uL (150-450); RED BLOOD COUNT 5.64 10^6/uL (4.30-6.10); WHITE BLOOD COUNT 13.5 10^3/uL (4.0-10.0)
[2024-07-12 13:45] LABS: BLOOD UREA NITROGEN 23 MG/DL (9-23); CALCIUM LEVEL 9.8 MG/DL (8.5-10.1); CARBON DIOXIDE LEVEL 28 MMOL/L (20-31); CHLORIDE LEVEL 106 MMOL/L (98-107); CK-MB VALUE MASS 1.5 NG/ML (<3.6); CREATININE FOR GFR 1.26 MG/DL (0.70-1.30); GLOMERULAR FILTRATION RATE > 60.0 (>56); GLUCOSE, FASTING 165 MG/DL (60-100); POTASSIUM SERUM 5.2 MMOL/L (3.5-5.1); SODIUM LEVEL 136 MMOL/L (136-145)
[2024-07-12 13:47] LABS: CPK CREATINE PHOSPHOKINASE 92 U/L (46-171); MB/CK RELATIVE INDEX 1.63 (< OR =4)
[2024-07-12] MEDS ORDERED: ISOVUE-370 76% 100ML VIAL As Ordered ONE (13:59)
[2024-07-12] MEDS: ASPIRIN 81MG CHEW TABLET PO ONE (14:03)
[2024-07-12] MEDS: NITROGLYCERIN 0.4MG SUBL TABLET SL PRN (14:03)
[2024-07-12 14:47] LABS: CK-MB VALUE MASS 1.3 NG/ML (<3.6)
[2024-07-12 14:56] LABS: MB/CK RELATIVE INDEX 1.62 (< OR =4)
[2024-07-12] MEDS: SOD POLYSTYRENE SULFONATE SUSP 15GM 60ML UD PO ONE (16:26)
[2024-07-12 16:27] VITALS: BP 129/74
[2024-07-12 17:06] LABS: CK-MB VALUE MASS 1.5 NG/ML (<3.6)
[2024-07-12 17:07] LABS: MB/CK RELATIVE INDEX 2.11 (< OR =4)
[2024-07-12] MEDS ORDERED: MAALOX 30 ML SUSP *UDC PO ONE (18:10)
[2024-07-12] MEDS: PANTOPRAZOLE 40MG VIAL IV ONE (18:37)
[2024-07-12] MEDS: MORPHINE 4 MG/ML 1ML VIAL IV ONE (18:39)
[2024-07-12 19:30] VITALS: BP 114/70
[2024-07-12 19:31] VITALS: TEMP 97.8; O2SAT 95
== END 2024-07-12 19:45 | disposition short-term general hospital (02) ==
LOC: M ED 12:46
DX: I20.0 Unstable angina (principal); E11.9 Type 2 diabetes mellitus without complications; F41.9 Anxiety disorder, unspecified; K21.9 Gastro-esophageal reflux disease without esophagitis; N18.9 Chronic kidney disease, unspecified; Z79.82 Long term (current) use of aspirin; Z79.4 Long term (current) use of insulin; Z79.899 Other long term (current) drug therapy
CPT/HCPCS: 71045; 71275; 80047; 80048; 82550; 82553; 84484; 85025; 93005; 93041; 94760; 96374; 96375; 99285; J2470; Q9967

== ENCOUNTER 2024-07-27 11:40 | Day surgery (SDC) | payer OTHER ==
[~2024-07-27] VITALS: Ht 180.3 cm; Wt 115.8 kg
[~2024-07-27 11:40] MED LIST changes: +GABA-1635 PO; -GABA800T4 PO; +LIDOCAINE 2% 100MG/5ML SDV (FOR ANES.) As Ordered ONE; +NS 1,000 ML IV ONE; +SEMA0.257 SQ
[2024-07-27] MEDS ORDERED: propofoL 200 MG/20 ML VIAL As Ordered ONE (12:33)
[2024-07-27 13:50] VITALS: TEMP 97.2
[2024-07-27 14:15] VITALS: BP 134/68; O2SAT 96
== END 2024-07-27 14:40 | disposition home or self-care (01) ==
LOC: M OPP 11:40
PROVIDERS: ATTEND Surgery
DX: Z12.11 Encounter for screening for malignant neoplasm of colon (principal); K64.0 First degree hemorrhoids; E11.9 Type 2 diabetes mellitus without complications; G47.30 Sleep apnea, unspecified; Z87.891 Personal history of nicotine dependence; Z79.02 Long term (current) use of antithrombotics/antiplatelets; Z79.4 Long term (current) use of insulin; Z79.82 Long term (current) use of aspirin; Z79.899 Other long term (current) drug therapy

== ENCOUNTER 2025-01-29 14:48 | Emergency (ER) | payer OTHER ==
[~2025-01-29] VITALS: Ht 177.8 cm; Wt 109.1 kg
[~2025-01-29 14:48] MED LIST changes: -LIDOCAINE 2% 100MG/5ML SDV (FOR ANES.) As Ordered ONE; -MIDO10TA PO; +MIDO10TA3 PO; -NS 1,000 ML IV ONE
[2025-01-29 15:01] VITALS: TEMP 97.3
[2025-01-29 15:27] LABS: BASO # 0.1 10^3/uL (0.0-0.2); EOS # 0.3 10^3/uL (0.0-0.5); EOS % 2.9 % (0.0-3.0); HEMATOCRIT 50.5 % (42.0-52.0); HEMOGLOBIN 16.4 g/dl (13.5-17.5); LYMPH % 22.6 % (24.0-44.0); MEAN CORPUSCULAR HEMOGLOBIN 29.4 pg (27.0-33.0); MEAN CORPUSCULAR HGB CONC 32.5 g/dl (32.0-36.5); MEAN CORPUSCULAR VOLUME 90.7 fl (80.0-96.0); MONO # 0.8 10^3/uL (0.0-0.8); MONO % 9.3 % (2.0-8.0); NEUTROPHILS # 5.8 10^3/uL (1.5-8.5); NEUTROPHILS % 63.9 % (36.0-66.0); PLATELET COUNT, AUTOMATED 252 10^3/uL (150-450); RED BLOOD COUNT 5.57 10^6/uL (4.30-6.10)
[2025-01-29] MEDS ORDERED: ISOVUE-370 76% 100ML VIAL As Ordered ONE (15:34)
[2025-01-29] MEDS: NS (Normal Saline) 0.9% 1,000 ML IV ONE (15:36)
[2025-01-29 15:43] LABS: INR 0.91; PARTIAL THROMBOPLASTIN TIME 27.8 SECONDS (24.8-34.2); PROTHROMBIN TIME 12.6 SECONDS (12.5-14.5)
[2025-01-29 15:48] LABS: LIPASE 28 U/L (12-53)
[2025-01-29 15:50] LABS: ALBUMIN 3.4 G/DL (3.2-5.2); ALKALINE PHOSPHATASE 139 U/L (40-129); ALT/SGPT 39 U/L (7.0-40); AST/SGOT 21 U/L (<34); BILIRUBIN,DIRECT 0.2 MG/DL (<0.4); BILIRUBIN,TOTAL 0.6 MG/DL (0.3-1.2); BLOOD UREA NITROGEN 27 MG/DL (9-23); CALCIUM LEVEL 9.9 MG/DL (8.5-10.1); CARBON DIOXIDE LEVEL 32 MMOL/L (20-31); CHLORIDE LEVEL 101 MMOL/L (98-107); CK-MB VALUE MASS 2.1 NG/ML (<3.6); CREATININE FOR GFR 1.24 MG/DL (0.70-1.30); GLOMERULAR FILTRATION RATE > 60.0 (>56); GLUCOSE, FASTING 113 MG/DL (60-100); POTASSIUM SERUM 4.6 MMOL/L (3.5-5.1); SODIUM LEVEL 141 MMOL/L (136-145); TOTAL PROTEIN 6.6 G/DL (5.7-8.2)
[2025-01-29 15:51] LABS: THYROID STIMULATING HORMONE 2.908 uIU/ML (0.55-4.78)
[2025-01-29 15:52] LABS: FREE T4 1.06 NG/DL (0.89-1.76)
[2025-01-29] MEDS: fentaNYL 100 MCG/2 ML INJECTION IV ONE (15:56)
[2025-01-29 16:00] LABS: CPK CREATINE PHOSPHOKINASE 75 U/L (46-171)
[2025-01-29 17:11] LABS: MB/CK RELATIVE INDEX 2.73 (< OR =4)
[2025-01-29 17:30] VITALS: BP 123/76
[2025-01-29 17:36] VITALS: O2SAT 99
== END 2025-01-29 17:48 | disposition home or self-care (01) ==
LOC: EDBD 14:48 → M ED 14:48
DX: I77.4 Celiac artery compression syndrome (principal); I25.83 Coronary atherosclerosis due to lipid rich plaque; I70.0 Atherosclerosis of aorta; N28.1 Cyst of kidney, acquired; I45.81 Long QT syndrome; E11.9 Type 2 diabetes mellitus without complications; Z79.4 Long term (current) use of insulin; Z79.82 Long term (current) use of aspirin; Z79.899 Other long term (current) drug therapy
CPT/HCPCS: 71045; 71275; 74174; 80047; 80048; 80076; 82550; 82553; 83690; 83880; 84439; 84443; 84484; 85025; 85610; 85730; 93005; 93041; 94760; 96374; 99285; J3010; Q9967

== ENCOUNTER → 2025-09-21 | Outpatient (CLI) | payer OTHER ==
[~2025-09-21] MED LIST changes: -PREG25CA PO; +PREG25CA63 PO; -PROZ20CA11 PO; +PROZ20CA12 PO; -ZOLP5TAB PO; +ZOLP5TAB9 PO
== END ==
LOC: M PLAIMG 10:12
PROVIDERS: ATTEND Registered Nurse
DX: R94.31 Abnormal electrocardiogram [ECG] [EKG] (principal); R06.02 Shortness of breath; I34.0 Nonrheumatic mitral (valve) insufficiency

== ENCOUNTER 2025-10-05 22:02 | Emergency (ER) | payer OTHER ==
[~2025-10-05] VITALS: Ht 177.8 cm; Wt 117.0 kg
[2025-10-05 23:24] VITALS: BP 124/74; TEMP 96.7; O2SAT 100
== END 2025-10-06 00:35 | disposition home or self-care (01) ==
LOC: M ED 22:02
DX: S92.331A Displaced fracture of third metatarsal bone, right foot, initial encounter for closed fracture (principal); S92.321A Displaced fracture of second metatarsal bone, right foot, initial encounter for closed fracture; E11.9 Type 2 diabetes mellitus without complications; X58.XXXA Exposure to other specified factors, initial encounter; F32.A Depression, unspecified; F41.9 Anxiety disorder, unspecified; N18.9 Chronic kidney disease, unspecified; Y92.9 Unspecified place or not applicable; Y93.9 Activity, unspecified; Y99.9 Unspecified external cause status; Z79.82 Long term (current) use of aspirin; Z79.899 Other long term (current) drug therapy; Z79.4 Long term (current) use of insulin

== ENCOUNTER → 2025-10-16 | Outpatient (CLI) | payer OTHER ==
[~2025-10-16] MED LIST changes: -PROZ20CA12 PO; +PROZ20CA25 PO
[2025-10-16 18:57] LABS: ALT/SGPT 40.0 U/L (7.0-40); AST/SGOT 25.0 U/L (<34); CALCIUM LEVEL 9.8 MG/DL (8.5-10.1); CARBON DIOXIDE LEVEL 27.0 MMOL/L (20-31); CHLORIDE LEVEL 105.0 MMOL/L (98-107); CHOLESTEROL LEVEL 111.0 MG/DL (<200); CHOLESTEROL RISK RATIO 2.95 (<5); CREATININE FOR GFR 1.14 MG/DL (0.70-1.30); GLOMERULAR FILTRATION RATE 74.1 (>56); LDL CHOLESTEROL 57.2 MG/DL (<100); NON-HDL-C 73.4 MG/DL; POTASSIUM SERUM 5.3 MMOL/L (3.5-5.1); SODIUM LEVEL 141.0 MMOL/L (136-145); TRIGLYCERIDES LEVEL 81.0 MG/DL (<150)
[2025-10-16 19:04] LABS: BASO # 0.1 10^3/uL (0.0-0.2); BASO % 0.6 % (0.0-1.0); EOS # 0.2 10^3/uL (0.0-0.5); EOS % 2.0 % (0.0-3.0); LYMPH # 1.7 10^3/uL (1.5-5.0); LYMPH % 17.3 % (24.0-44.0); MONO # 0.8 10^3/uL (0.0-0.8); MONO % 7.8 % (2.0-8.0); NEUTROPHILS # 7.2 10^3/uL (1.5-8.5); NEUTROPHILS % 71.8 % (36.0-66.0); PLATELET COUNT, AUTOMATED 240 10^3/uL (150-450)
== END ==
LOC: M LAB 17:26
PROVIDERS: ATTEND Registered Nurse
DX: R94.31 Abnormal electrocardiogram [ECG] [EKG] (principal); Z79.899 Other long term (current) drug therapy

== ENCOUNTER → 2025-11-07 | Outpatient (CLI) | payer OTHER | LOC: M SLEEP HO 11:31 | PROVIDERS: ATTEND Nurse Practitioner Family | DX: G47.33 Obstructive sleep apnea (adult) (pediatric) (principal) ==